=== PATIENT | male | born 1955 | race Caucasian/White ===

== ENCOUNTER 2020-08-22 12:37 | Inpatient (IN) | payer MEDICARE ==
[~2020-08-22] VITALS: Ht 185.4 cm; Wt 85.6 kg
[~2020-08-22 12:37] MED LIST: ALBU90OI6 INH; ATEN100 PO; CYAN1000 PO; EPIN.3I IM; FERR325 PO; FOLI1 PO; HYDACE10B PO; LISINOPRIL TAB 20M; OMEP10ER PO; Percocet 5-3251 EACH PO
[2020-08-22 13:02] LABS: PO2 Arterial 51.7 mmHg (80-100)
[2020-08-22 13:03] LABS: PCO2 Arterial > 105 mmHg (35-45); pH Blood Arterial 7.05 (7.35-7.45)
[2020-08-22 13:13] LABS: BASOPHILS ABSOLUTE AUTO 0.06 K/mm3 (0.00-0.23); BASOPHILS PERCENT AUTO 0 % (0-2); EOSINOPHILS ABSOLUTE AUTO 0.04 K/mm3 (0.00-0.68); EOSINOPHILS PERCENT AUTO 0 % (0-6); Hemoglobin 14.6 g/dL (13.5-17.5); IMMATURE GRAN ABSOLUTE AUTO 0.18 K/mm3 (0.00-0.10); IMMATURE GRAN PERCENT AUTO 1 % (0-1); LYMPHOCYTES ABSOLUTE AUTO 2.13 K/mm3 (0.84-5.20); LYMPHOCYTES PERCENT AUTO 14 % (21-46); MONOCYTES ABSOLUTE AUTO 0.82 K/mm3 (0.16-1.47); MONOCYTES PERCENT AUTO 5 % (4-13); Mean Corpuscular HGB 35.2 pg (26.0-34.0); Mean Corpuscular Volume 104 fL (80-100); Mean Platelet Volume 10.7 fL (9.1-12.4); NEUTROPHILS ABSOLUTE AUTO 11.94 K/mm3 (1.96-9.15); NEUTROPHILS PERCENT AUTO 79 % (41-73); NRBC ABSOLUTE 0.03 K/mm3 (0.00-0.02); NRBC Auto 0.2 /100 WBC (0.0-0.2); Platelet Count 275 K/mm3 (150-400); RDW Coefficient Variation 13.5 % (11.7-14.2); RDW Standard Deviation 52.6 fL (35.1-46.3); Red Blood Cell Count 4.15 M/mm3 (4.30-5.90); White Blood Cell Count 15.17 K/mm3 (4.00-11.30)
[2020-08-22 13:33] LABS: Troponin I 0.069 ng/mL (0.000-0.040)
[2020-08-22 13:39] LABS: Alanine Aminotransfer (ALT/SGP 37 U/L (12-78); Albumin, Blood 2.3 g/dL (3.4-5.0); Albumin/Globulin Ratio 0.5 (0.8-1.8); Alk Phos 192 U/L (50-136); Anion Gap 11 mmol/L (6-16); Aspartate Aminotrans (AST/SGOT 100 U/L (12-37); Bilirubin, Total 0.8 mg/dL (0.1-1.0); Blood Urea Nitrogen 8 mg/dL (8-24); Bun/Creatinine Ratio 6.5 (12.0-20.0); CO2, Blood 26 mmol/L (21-32); Calcium, Blood 8.4 mg/dL (8.5-10.1); Chloride, Blood 101 mmol/L (98-108); Creatinine, Blood 1.23 mg/dL (0.60-1.20); Globulin, Blood 5.1 g/dL (2.2-4.0); Glomerular Filtration Rate >60 (60-); Glucose, Blood 264 mg/dL (70-99); Potassium, Blood 1.7 mmol/L (3.5-5.5); Sodium, Blood 138 mmol/L (136-145); Total Protein, Blood 7.4 g/dL (6.4-8.2)
[2020-08-22] MEDS ORDERED: OMEP20ER PO (14:13)
[2020-08-22 15:21] LABS: Anion Gap 12 mmol/L (6-16); Blood Urea Nitrogen 7 mg/dL (8-24); Bun/Creatinine Ratio 5.6 (12.0-20.0); CO2, Blood 25 mmol/L (21-32); Calcium, Blood 7.7 mg/dL (8.5-10.1); Chloride, Blood 104 mmol/L (98-108); Creatinine, Blood 1.24 mg/dL (0.60-1.20); Glomerular Filtration Rate >60 (60-); Glucose, Blood 222 mg/dL (70-99); Potassium, Blood 1.3 mmol/L (3.5-5.5); Sodium, Blood 141 mmol/L (136-145)
[2020-08-22 17:17] LABS: Base Excess Venous 2.1 mmol/L; Bicarbonate Venous 25.4 mmol/L (24.0-30.0); PCO2 Venous 48.2 mmHg (38-42); PO2 Venous 55.9 mmHg (38-42); pH Blood Venous 7.36 (7.34-7.37)
[2020-08-22] MEDS ORDERED: Hair, Skin & N1 EACH PO (19:25)
[2020-08-22] MEDS ORDERED: LORA10ER PO (19:25)
--- NOTE | 2020-08-22 19:27 | NUR ---
ICU ADMISSION: REPORT RECEIVED FROM JOSE Van RN IN ED. PT ARRIVED TO ICU-15 AT APPROX 1655. TRANSFERRED FROM [facility] TO BED W/ SLIDER SHEET & 4 STAFF ASSIST. ON ARRIVAL, THE PT IS A&O, ANSWERING QUESTIONS APPROPRIATELY. LS ARE DIM IN BASES, PT ON BIPAP W/ SETTINGS: 21/11, B/U RATE 12, FIO2 85% (NOW 70%) W/ O2 SATS > 92%. MONITOR SHOWS SR-ST W/ HR 100s ON ARRIVAL, NOW 80-90s. BP HAS TRENDED DOWN SLIGHTLY W/ SBP 90s AT THIS TIME, PT ASYMPTOMATIC. HE HAS C/O "A TOUCH" OF DIARRHEA & INCONTINENCE OF BOWEL. HE HAS BEEN UNABLE TO URINATE SINCE ARRIVAL TO THE ED. BLADDER SCAN COMPLETED SHOWING MINIMAL URINE IN BLADDER. PT IS AWARE OF THE NEED FOR A SPECIMEN COLLECTIONS & WILL NOTIFY STAFF IF FEELING THE URGE TO VOID. SKIN CONDITION OVERALL FRAGILE, INTACT - SEE PHOTO DOCUMENTATION & ASSESSMENT. FOAM COCCYX DRESSING PLACED PROPHYLACTICALLY FOR SMALL AMNT OF REDNESS NOTED TO PRESSURE POINTS. REPORT GIVEN TO TIFFANIE Sauer RN TO ASSUME CARE.
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
--- NOTE | 2020-08-23 | NUR ---
PT TOLERATING BIPAP WELL, TOLERATES BREIF BREAKS FOR ORAL CARE. PT RESTING, REMAINS AROUSABLE TO VERBAL STIMULI, BP REMAINS SOFT BUT WITH MAPS> 65.
[2020-08-23 01:52] LABS: PCO2 Arterial 40.4 mmHg (35-45); PO2 Arterial 75.8 mmHg (80-100)
--- NOTE | 2020-08-23 02:00 | NUR ---
TO PTS ROOM R/T DECREASING O2 SATURATIONS. PT ALERT IN BED, APPEARS TO BE ATTEMPTING TO SPEAK BUT UNABLE TO TALK, SKIN IS DEAL AND DIAPHORETIC, TV ON BIPAP READING 200-300, LITTLE AIR MOVEMENT NOTED UPON AUSCULTAION. O2 SAUTRATIONS CONTINUED TO DECREASE TO 60'S, PT APPEARS ANXIOUS, BEGAN BAGGING PT AND RT TO ROOM. O2 SATURATIONS IMPROVED, SKIN COLOR IMPROVED, PT BEGAN SPEAKING, REMAINS ORIENTED, STS HE JUST COULD TAKE A BREATH IN. DR ROCK TO ROOM TO ASSESS PT, NEW ORDER FOR ABG. AFTER ABG DRAWN, PT HAD SECOND RESPIRATORY DISTRESS EPSISODE, DR ROCK STILL IN UNIT, TO ROOM AND AT BEDSIDE THROUGH DURATION OF EPISODE. RT ADJUSTING BIPAP SETTINGS AND PT REPORTS IMRPOVEMENT.
--- NOTE | 2020-08-23 03:00 | NUR ---
BRADYCARDIA/CODE BLUE AT PTS BEDSIDE AND PT HAD ANOTHER EPISODE OF RESPIRATORY DISTRESS WITH LOW TV'S AND O2 SATURATIONS DECREASING TO 70'S, RT TO ROOM AND PTS HEART RATE DECREASED TO 40, PT UNRESPONSIVE, CODE BLUE CALLED AND CRASH CART BROUGHT TO ROOM. HR IMPROVED W/O INTERVENTIONS, CHEST COMPRESSIONS NEVER INITIATED. PT INTUBATED WITH 8.0 ETT, 25 @ THE [facility], BY ED PROVIDER KELLIE ONOFRE.
[2020-08-23 03:04] LABS: Base Excess Venous -1.5 mmol/L; Bicarbonate Venous 22.3 mmol/L (24.0-30.0); PCO2 Venous 50.1 mmHg (38-42)
--- NOTE | 2020-08-23 03:07 | NUR ---
8.0 ETT, 25 CM AT TEETH
[2020-08-23 03:10] LABS: BASOPHILS ABSOLUTE AUTO 0.02 K/mm3 (0.00-0.23); BASOPHILS PERCENT AUTO 0 % (0-2); EOSINOPHILS PERCENT AUTO 0 % (0-6); Hematocrit 29.2 % (37.0-53.0); Hemoglobin 10.1 g/dL (13.5-17.5); IMMATURE GRAN ABSOLUTE AUTO 0.06 K/mm3 (0.00-0.10); IMMATURE GRAN PERCENT AUTO 1 % (0-1); LYMPHOCYTES ABSOLUTE AUTO 0.71 K/mm3 (0.84-5.20); LYMPHOCYTES PERCENT AUTO 6 % (21-46); MONOCYTES ABSOLUTE AUTO 0.19 K/mm3 (0.16-1.47); MONOCYTES PERCENT AUTO 2 % (4-13); Mean Corpuscular HGB 36.1 pg (26.0-34.0); Mean Corpuscular HGB Conc 34.6 g/dL (31.5-36.5); Mean Corpuscular Volume 104 fL (80-100); Mean Platelet Volume 10.7 fL (9.1-12.4); NEUTROPHILS ABSOLUTE AUTO 11.24 K/mm3 (1.96-9.15); NEUTROPHILS PERCENT AUTO 92 % (41-73); Platelet Count 181 K/mm3 (150-400); RDW Coefficient Variation 13.6 % (11.7-14.2); RDW Standard Deviation 52.1 fL (35.1-46.3); White Blood Cell Count 12.22 K/mm3 (4.00-11.30)
[2020-08-23 03:25] LABS: International Normalized Ratio 1.3; Prothrombin Time Results 13.8 Sec (9.7-11.5)
[2020-08-23 03:26] LABS: Magnesium, Blood 1.7 mg/dL (1.6-2.4)
[2020-08-23 03:30] LABS: Anion Gap 1 mmol/L (6-16); Blood Urea Nitrogen 7 mg/dL (8-24); Bun/Creatinine Ratio 6.7 (12.0-20.0); CO2, Blood 26 mmol/L (21-32); Chloride, Blood 117 mmol/L (98-108); Creatinine, Blood 1.05 mg/dL (0.60-1.20); Glomerular Filtration Rate >60 (60-); Glucose, Blood 168 mg/dL (70-99); Phosphorus, Blood 1.9 mg/dL (2.5-4.9); Sodium, Blood 144 mmol/L (136-145)
[2020-08-23 03:31] LABS: Calcium, Blood 5.7 mg/dL (8.5-10.1); Potassium, Blood 6.4 mmol/L (3.5-5.5)
[2020-08-23 04:36] LABS: Alanine Aminotransfer (ALT/SGP 33 U/L (12-78); Albumin, Blood 1.6 g/dL (3.4-5.0); Albumin/Globulin Ratio 0.4 (0.8-1.8); Alk Phos 123 U/L (50-136); Anion Gap 7 mmol/L (6-16); Aspartate Aminotrans (AST/SGOT 95 U/L (12-37); Bilirubin, Total 0.8 mg/dL (0.1-1.0); Blood Urea Nitrogen 8 mg/dL (8-24); Bun/Creatinine Ratio 7.1 (12.0-20.0); CO2, Blood 25 mmol/L (21-32); Calcium, Blood 6.5 mg/dL (8.5-10.1); Chloride, Blood 114 mmol/L (98-108); Creatinine, Blood 1.12 mg/dL (0.60-1.20); Globulin, Blood 3.8 g/dL (2.2-4.0); Glomerular Filtration Rate >60 (60-); Glucose, Blood 183 mg/dL (70-99); Phosphorus, Blood 1.7 mg/dL (2.5-4.9); Sodium, Blood 146 mmol/L (136-145)
[2020-08-23 04:38] LABS: Potassium, Blood 1.7 mmol/L (3.5-5.5); Total Protein, Blood 5.4 g/dL (6.4-8.2)
[2020-08-23 05:21] LABS: Source, Urine Catheter
[2020-08-23 05:32] LABS: Appearance, Urine Hazy (Clear); Bilirubin, Urine Neg (Neg); Blood, Urine 5+ (Neg); Color, Urine Yellow (P-Yellow); Glucose Qualitative, Urine 1+ (Neg); Ketones, Urine Neg (Neg); Leukocyte Esterase, Urine 1+ (Neg); Nitrite, Urine Neg (Neg); Protein, Urine 3+ (Neg); Urobilinogen, Urine NORM (Normal)
[2020-08-23 05:43] LABS: Bacteria Mod /hpf; Red Blood Cells, Urine 0-2 /hpf (0-2); Squamous Epithelial Cells Mod /hpf (Few)
[2020-08-23 06:42] LABS: U Amphetamine Screen Not Detected; U Barbituate Screen Not Detected; U Benzodiazapine Screen Not Detected; U Buprenorphine Screen Not Detected; U Cannabinoids Screen DETECTED; U Cocaine Screen Not Detected; U Methadone Screen Not Detected; U Methamphetamine Screen Not Detected; U Opiates Screen Not Detected; U Oxycodone Screen Not Detected; U Phencyclidine Screen Not Detected; U Propoxyphene Screen Not Detected
--- NOTE | 2020-08-23 07:31 | NUR ---
SHIFT SUMMARY PT INTUBATED AND SEDATED, VENT SET TO AC 14/550/5/35%, PROPOFOL INFUSING FOR SEDATION, PT AROUSES TO VERBAL STIMULI, FOLLOWS COMMANDS. 6.4 POTASSIUM LEVEL CALLED TO DR ROCK, ORDER TO REDRAW, FOLLOW POTASSIUM 1.7, CALLED TO DR ROCK, ORDER FOR NEPHROLOGY CONSULT, CONSULT CALLED TO DR OWENS, NEW ORDERS FOR 20meq KCL IV AND THEN DRAW RENAL AND MAG LABS. PT WITH DARK GREEN LIQUID STOOL AT END OF SHIFT, WHITE PLACED THIS SHIFT, VERY LITTLE URINE OUTPUT. REPORT GIVEN KEYLA DIALLO.
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
[2020-08-23 08:15] LABS: Albumin, Blood 1.6 g/dL (3.4-5.0); Anion Gap 8 mmol/L (6-16); Blood Urea Nitrogen 8 mg/dL (8-24); Bun/Creatinine Ratio 7.1 (12.0-20.0); CO2, Blood 26 mmol/L (21-32); Calcium, Blood 6.4 mg/dL (8.5-10.1); Chloride, Blood 114 mmol/L (98-108); Creatinine, Blood 1.13 mg/dL (0.60-1.20); Glomerular Filtration Rate >60 (60-); Glucose, Blood 140 mg/dL (70-99); Phosphorus, Blood 0.9 mg/dL (2.5-4.9); Potassium, Blood 1.6 mmol/L (3.5-5.5); Sodium, Blood 148 mmol/L (136-145)
--- NOTE | 2020-08-23 08:45 | NUR ---
DR. OWNES CALLED AND INFORMED OF LAB RESULTS. INFORMED OF POTASSIUM OF 1.6 AND PHOSPHORUS OF 0.9. INFORMED THAT OVER NIGHT PATIENT HAD 1 UNMEASURED VOID AND NOW ONLY HAS 30 MLS OF URINE IN WHITE CATHETER BAG. INFORMED THAT BPS SOFT WITH SBP IN THE 80S THIS AM. ORDERS RECEIVED FOR KCL AND KPHOS.
--- NOTE | 2020-08-23 09:00 | NUR ---
DR. PEREZ UPDATED ON PATIENT STATUS. INFORMED THAT PATIENT HAS HAD MINIMAL OUTPUT. INFORMED THAT BPS HAVE BEEN SOFT. INFORMED OF AM CALCIUM, BNP, PHOS, TROPONIN AND POTASSIUM LEVELS.
--- NOTE | 2020-08-23 10:22 | NUR ---
PATIENT'S GIRLFRIEND, SANDRINE, CALLED AND UPDATED ON PATIENT STATUS. INFORMED OF CRICITALLY LOW PHOSPHORUS AND POTASSIUM, INFORMED THAT PATIENT INTUBATED LAST NIGHT. CONSENT OBTAINED FOR PICC LINE PLACEMENT.
--- NOTE | 2020-08-23 11:09 | NUR ---
Per EMR pt's PCP is Artemio PRADO at [facility]. Spoke with Micheline at [facility]. Pt has not been see by Pasha Waldron in the past. Pt has an appointment to re-establish care with Roberto Celaya on 08/31/20. [facility] has no AD or POLST on file for Asad. Per [facility] records, pt has a history of an aneurysm, hypercholesterolimia, HTN, pancreatitis, sleep apnea, COPD and GERD.
--- NOTE | 2020-08-23 12:30 | NUR ---
PATIENT HAS TEMP OF 99.5 DEGREES FAHRENHEIT. HR IN THE 80S. SBP 60S TO 80S. LEVOPHED STARTED; INFUSING AT 4 MCG/ MINUTE. MINIMAL URINE OUTPUT NOTED. DR. PEREZ AWARE. NO OTHER ACUTE CHANGES TO NOTE ON AT THIS TIME. PATIENT CONTINUED TO RECEIVED POTASSIUM OF PHOS REPLACEMENTS. WILL CONTINUE TO MONITOR.
--- NOTE | 2020-08-23 16:43 | NUR ---
PATIENT AFEBRILE. NO SIGNS OF PAIN NOTED. PATIENT REMAINS ON SAME VENT SETTINGS. HR IN THE 80S. SBP LOW 100S TO 120S. LEVOPHED INFUSING AT 2 MCG/ MINUTE. STOOL SENT TO LAB. NO OTHER ACUTE CHANGES TO NOTE ON. WILL CONTINUE TO MONITOR.
--- NOTE | 2020-08-23 17:32 | NUR ---
PATIENT'S SIGNIFICANT OTHER HERE TO VISIT. S.O. UPDATED.
--- NOTE | 2020-08-23 19:06 | NUR ---
SHIFT SUMMARY PATIENT REMAINED INTUBATED AND ON SEDATION. PATIENT RESPONDED TO VERBAL AND PAINFUL STIMULI. PATIENT HAD NO SIGNS OF PAIN THIS SHIFT. PATIENT HAD TMAX OF 99.6 DEGREES FAHRENHEIT. PATIENT REMAINS ON AC 24, TV 550, PEEP 5, 35% FIO2. PATIENT HAD NEAR TO NO SPUTUM OUT THIS SHIFT. PATIENT REMAINED IN SR, HR 70S TO 90S. SBP 60S TO 120S. PATIENT ON 2 TO 8 MCG/ MINUTE OF LEVOPHED THIS SHIFT. PATIENT CURRENTLY AT 2 MCG/ MINUTE. PATIENT HAD 300 MLS OF DARK GREEN, LIQUID BM FROM RECTAL TUBE. STOOL SAMPLE SENT TO LAB. OG REMAINED CLAMPED EXCEPT FOR MEDICATION ADMINISTRATION. TEMP PROBE WHITE DRAINED 174 MLS OF ALONDRA COLORED URINE OUT THIS SHIFT. NO CHANGE IN SKIN. PATIENT REPOSITIONED THROUGHOUT SHIFT. NS REMAINS AT 75 MLS/ HOUR. PATIENT HAD 1 L NS BOLUS THIS SHIFT. PATIENT RECEIVED ROCEPHIN AND AZITHROMYCIN THIS SHIFT. PATIENT RECEIVED 80 MEQ OF KCL AND 30 MM OF KPHOS THIS SHIFT. REPEAT LABS RECENTLY SENT TO LAB. URINE POTASSIUM SENT THIS SHIFT. PATIENT RECEIVED 100 GM OF ALBUMIN THIS SHIFT. PATIENT RECEIVED ECHO. PATIENT APPEARS COMFORTABLE AT THIS TIME. BED LOW, CALL LIGHT IN REACH. REPORT HAS BEEN GIVEN TO ASSUMING KNOT TYING OPERATOR NURSE.
[2020-08-23 19:07] LABS: Magnesium, Blood 1.8 mg/dL (1.6-2.4)
[2020-08-23 19:10] LABS: Adenovirus F 40/41 Not Detected (NOT DETECT); Astrovirus Not Detected (NOT DETECT); Campylobacter Sp Not Detected (NOT DETECT); Cryptosporidium Not Detected (NOT DETECT); Cyclospora Cayetanensis Not Detected (NOT DETECT); E. Coli O157 Not Detected (NOT DETECT); Entamoeba Histolytica Not Detected (NOT DETECT); Enteroaggregative E. coli-EAEC Not Detected (NOT DETECT); Enteropathogenic E. coli-EPEC Not Detected (NOT DETECT); Enterotoxigenic E. coli-ETEC Not Detected (NOT DETECT); Giardia Lamblia Not Detected (NOT DETECT); Norovirus GI/GII Not Detected (NOT DETECT); Plesiomonas Shigelloides Not Detected (NOT DETECT); Rotavirus A Not Detected (NOT DETECT); Salmonella Sp Not Detected (NOT DETECT); Sapovirus Not Detected (NOT DETECT); Shiga Toxin-prod E. coli-STEC Not Detected (NOT DETECT); Shigella/Enteroin E. coli-EIEC Not Detected (NOT DETECT); Vibrio Cholerae Not Detected (NOT DETECT); Vibrio Sp Not Detected (NOT DETECT); Yersinia Enterocolitica Not Detected (NOT DETECT)
[2020-08-23 19:22] LABS: Phosphorus, Blood 2.9 mg/dL (2.5-4.9); Potassium, Blood 2.2 mmol/L (3.5-5.5)
--- NOTE | 2020-08-23 20:30 | NUR ---
ASSUMPTION OF CARE PT INTUBATED AND SEDATED WITH PROPOFOL, SEE FLOWSHEET FOR TITRATIONS. VENT SET TO AC 14/550 PEEP 5 FIO2 35%. PT GRIMACES WITH NURSING CARE, DOES NOT FOLLOW COMMANDS. MONITOR SHOWS SINUS RHYTHM WITH HR 60'S-90'S, LEVO INFUSING TO MAINTAIN MAPS> 65. WHITE IN PLACE WITH VERY LITTLE OUTPUT. RECTAL TUBE IN PLACE WITH LIQUID GREEN OUTPUT. NS INF @ 75ml/hr, POTASSIUM RESULTS CALLED TO DR OWENS, NEW ORDER FOR 80meq KCL WITH REPEAT LAB AFTER INFUSION IS COMPLETE.
[2020-08-24 05:08] LABS: BASOPHILS ABSOLUTE AUTO 0.01 K/mm3 (0.00-0.23); BASOPHILS PERCENT AUTO 0 % (0-2); EOSINOPHILS PERCENT AUTO 0 % (0-6); Hematocrit 28.4 % (37.0-53.0); Hemoglobin 9.6 g/dL (13.5-17.5); IMMATURE GRAN ABSOLUTE AUTO 0.08 K/mm3 (0.00-0.10); IMMATURE GRAN PERCENT AUTO 1 % (0-1); LYMPHOCYTES ABSOLUTE AUTO 1.57 K/mm3 (0.84-5.20); LYMPHOCYTES PERCENT AUTO 14 % (21-46); MONOCYTES ABSOLUTE AUTO 0.38 K/mm3 (0.16-1.47); MONOCYTES PERCENT AUTO 3 % (4-13); Mean Corpuscular HGB 36.1 pg (26.0-34.0); Mean Corpuscular HGB Conc 33.8 g/dL (31.5-36.5); Mean Corpuscular Volume 107 fL (80-100); Mean Platelet Volume 10.4 fL (9.1-12.4); NEUTROPHILS ABSOLUTE AUTO 9.15 K/mm3 (1.96-9.15); NEUTROPHILS PERCENT AUTO 82 % (41-73); Platelet Count 180 K/mm3 (150-400); RDW Coefficient Variation 14.1 % (11.7-14.2); Red Blood Cell Count 2.66 M/mm3 (4.30-5.90); White Blood Cell Count 11.19 K/mm3 (4.00-11.30)
[2020-08-24 05:38] LABS: Albumin, Blood 2.9 g/dL (3.4-5.0); Anion Gap 11 mmol/L (6-16); Blood Urea Nitrogen 10 mg/dL (8-24); Bun/Creatinine Ratio 9.3 (12.0-20.0); CO2, Blood 22 mmol/L (21-32); Calcium, Blood 6.4 mg/dL (8.5-10.1); Chloride, Blood 116 mmol/L (98-108); Creatinine, Blood 1.07 mg/dL (0.60-1.20); Glomerular Filtration Rate >60 (60-); Glucose, Blood 138 mg/dL (70-99); Phosphorus, Blood 3.1 mg/dL (2.5-4.9); Potassium, Blood 3.2 mmol/L (3.5-5.5); Sodium, Blood 149 mmol/L (136-145)
--- NOTE | 2020-08-24 06:14 | NUR ---
SHIFT SUMMARY PT REMAINS INTUBATED AND SEDATED, RESPONDS TO PAINFUL STIMULI, SEDATION VACATION THIS AM, PTS RESPIRATORY RATE INCREASED TO 30'S AND PT BECAME VERY TREMULOUS AND UNABLE TO FOLLOW COMMANDS, SBT NOT PERFORMED DUE TO CONCERN FOR POSSIBLE ETOH WITHDRAWAL AND RESTLESSNESS WITH DECREASED SEDATION. PT WITH INCREASED SECRETIONS, PINK/THICK PER ETT. VENT SET TO AC 14/550 PEEP 5 FIO2 35%. MONITOR SHOWS SINUS RHYTHM WITH HR 70'S-90'S, LEVO GTT PLACED ON SB FOR APPROX 2 HOURS THIS SHIFT AND THEN RESTARTED @ 2mcg/min TO MAINTAIN MAPS> 65. WHITE REMAINS IN PLACE WITH LITTLE OUTPUT. RECTAL TUBE IN PLACE, CONTINUES TO DRAIN LIQUID GREEN STOOL, APPROX 550ml THIS SHIFT. AM POTASSIUM, MAG AND PHOS LAB RESULTS CALLED TO DR OWENS, NEW ORDER FOR 20meq IV KCL.
--- NOTE | 2020-08-24 08:00 | NUR ---
DR. PEREZ UPDATED ON PATIENT STATUS. INFORMED THAT PATIENT HAD SEDATION VACATION THIS AM AND PATIENT BECAME VERY TREMULOUS, DIAPHORETIC AND HAD RR 40S TO 50S. INFORMED THAT PATIENT IS A DAILY DRINKER. INFORMED THAT NIGHT RN PALPATED MASS TO R SIDE OF NECK. THIS NURSE DID NOT PALPATE. DR. PEREZ CHECKED AND DID NOT PALPATE A MASS EITHER. INFORMED THAT PATIENT HAD 550 MLS OF STOOL FROM RECTAL TUBE OVERNIGHT AND 200 MLS OF URINE OUTPUT ON WARDSPERSON. INFORMED THAT SODIUM 149 AND POTASSIUM 3.2 [address] AM. INFORMED THAT DR. OWENS ORDERED FOR 20 MEQ KCL AND FOR D5W AT 75 MLS/ HOUR. INFORMED THAT CALCIUM 0.54. INFORMED THAT QT INTERVAL IS PROLONGED. NO ORDERS RECEIVED AT THIS TIME.
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
[2020-08-24 12:31] LABS: Potassium, Blood 2.7 mmol/L (3.5-5.5)
--- NOTE | 2020-08-24 12:34 | NUR ---
DR. OWENS CALLED AND INFORMED OF RECENT SODIUM AND POTASSIUM LABS. ORDER RECEIVED.
--- NOTE | 2020-08-24 13:00 | NUR ---
PATIENT AFEBRILE. HR IN THE 80S. SBP 90S TO LOW 100S. LEVOPHED ON SB. PATIENT REMAINS SATTING 90% AND GREATER ON SAME VENT SETTINGS. BLOOD SUGAR OF 126. VHP TF STARTED AT GOAL RATE OF 10 MLS/ HOUR WITH 30 ML WATER FLUSH Q4H INTO OG TUBE. NO OTHER ACUTE CHANGES TO NOTE ON AT THIS TIME. WILL CONTINUE TO MONITOR.
--- NOTE | 2020-08-24 16:35 | NUR ---
PATIENT AFEBRILE. PATIENT REMAINS SATTING 90% AND GREATER ON SAME VENT SETTINGS. HR IN THE 80S. SBP 80S TO LOW 100S. TF RESIDUAL OF ZERO. NO OTHER ACUTE CHANGES TO NOTE ON AT THIS TIME. WILL CONTINUE TO MONITOR.
--- NOTE | 2020-08-24 19:20 | NUR ---
SHIFT SUMMARY PATIENT REMAINED INTUBATED AND ON SEDATION. PATIENT STARTED ON SCHEDULED ATIVAN PT THIS SHIFT TO HELP WITH WHAT APPEAR TO BE ALCOHOL WITHDRAWAL SYMPTOMS. TREMORS HAVE NOT BEEN SEEN SINCE ATIVAN GIVEN. PATIENT HAD SEDATION VACATION AND SHORT WEAN LATER THIS AFTERNOON. PATIENT ABLE TO REMAIN CALM AND FOLLOW SOME SIMPLE COMMANDS. PATIENT PLACED BACK ON AC SETTINGS FOR INCREASED RR AND ANXIETY SHORT TIME LATER. DR. PEREZ STATED HE WOULD LIKE ANOTHER WEAN AND SEDATION VACATION AROUND 0700 IN THE MORNING. PATIENT ON AC 14, TV 550, PEEP 5 AND 45% FIO2 BY END OF SHIFT. PATIENT ON 35% FIO2 MOST OF THE DAY. PATIENT HAS SCANT AMOUNT OF THICK, WHITE/ PINK SPUTUM OUT THIS SHIFT. PATIENT REMAINED IN SR. LEVOPHED FROM SB TO 2 MCG/ MINUTE FOR HYPOTENSION. PATIENT HAD OUT 600 MLS OF DARK GREEN, LIQUID STOOL FROM RECTAL TUBE. TF STARTED AT GOAL RATE OF 10 MLS/ HOUR. PATIENT HAD MINIMAL URINE OUTPUT- DR. PEREZ AWARE. NO CHANGES TO SKIN. PATIENT REPOSITIONED THROUGHOUT SHIFT. EAR PROBE PLACED FOR LAST 4 HOURS AND SITE CHANGED Q2H. D5W INFUSING AT 50 MLS/ HOUR, PROPOFOL AT 20 MCG/ KG/ MINUTE. PATIENT RECEIVED 80 MEQ KCL THIS SHIFT. PATIENT APPEARS COMFORTABLE AT THIS TIME. NIGHT RN AT BEDSIDE. REPORT GIVEN.
--- NOTE | 2020-08-24 19:30 | NUR ---
ASSUMED CARE AT 1900 PT LAYING IN BED INTUBATED WITH VENT SETTINGS AC 14, TV 550, PEEP 5, FIO2 45%. PT DOES NOT TOLERATE REPOSITIONING ONTO RT SIDE. PT RESPONSIVE TO PAINFUL STIMULI, ORAL CARE, AND REPOSITIONING; GAG AND COUGH PRESENT; PROPOFOL INFUSING AT 25MCG/KG/MIN. AFEBRILE. HR 70-90'S, NSR. SBP 80-100, MAP >65; LEVOPHED INFUSING AT 3MCG/MIN. VHP INFUSING VIA OG AT 10ML/HR (GOAL) WITH 30ML WATER FLUSHES; MINIMAL RESIDUALS NOTED. RECTAL TUBE DRAINING TO GRAVITY GREEN LIQUID STOOL. WHITE IN PLACE AND DRAINING TO GRAVITY. SEE SHIFT ASSESSMENT FOR FULL ASSESSMENT.
--- NOTE | 2020-08-25 03:57 | NUR ---
NOTIFIED DR OWENS KCL STOPPED INFUSING AT 1924. POTASSIUM LAB DRAWN ONE HOUR AFTER LAST KCL INFUSION. DR OWENS CALLED WITH LAB RESULT AND NEW ORDERS PROVIDED FOR 10 KCL IV X1 AND TO CALL DR OWENS AFTER MORNING LAB RESULTS.
[2020-08-25 04:19] LABS: BASOPHILS ABSOLUTE AUTO 0.02 K/mm3 (0.00-0.23); BASOPHILS PERCENT AUTO 0 % (0-2); EOSINOPHILS ABSOLUTE AUTO 0.13 K/mm3 (0.00-0.68); EOSINOPHILS PERCENT AUTO 2 % (0-6); Hematocrit 29.1 % (37.0-53.0); Hemoglobin 9.8 g/dL (13.5-17.5); IMMATURE GRAN ABSOLUTE AUTO 0.04 K/mm3 (0.00-0.10); IMMATURE GRAN PERCENT AUTO 1 % (0-1); LYMPHOCYTES ABSOLUTE AUTO 2.29 K/mm3 (0.84-5.20); LYMPHOCYTES PERCENT AUTO 29 % (21-46); MONOCYTES ABSOLUTE AUTO 0.51 K/mm3 (0.16-1.47); MONOCYTES PERCENT AUTO 7 % (4-13); Mean Corpuscular HGB 36.7 pg (26.0-34.0); Mean Corpuscular HGB Conc 33.7 g/dL (31.5-36.5); Mean Corpuscular Volume 109 fL (80-100); Mean Platelet Volume 10.4 fL (9.1-12.4); NEUTROPHILS ABSOLUTE AUTO 4.87 K/mm3 (1.96-9.15); NEUTROPHILS PERCENT AUTO 62 % (41-73); Platelet Count 139 K/mm3 (150-400); RDW Coefficient Variation 14.3 % (11.7-14.2); RDW Standard Deviation 57.2 fL (35.1-46.3); Red Blood Cell Count 2.67 M/mm3 (4.30-5.90); White Blood Cell Count 7.86 K/mm3 (4.00-11.30)
[2020-08-25 04:33] LABS: Albumin, Blood 2.8 g/dL (3.4-5.0); Anion Gap 7 mmol/L (6-16); Blood Urea Nitrogen 8 mg/dL (8-24); Bun/Creatinine Ratio 8.8 (12.0-20.0); CO2, Blood 22 mmol/L (21-32); Calcium, Blood 6.4 mg/dL (8.5-10.1); Chloride, Blood 116 mmol/L (98-108); Creatinine, Blood 0.91 mg/dL (0.60-1.20); Glomerular Filtration Rate >60 (60-); Glucose, Blood 140 mg/dL (70-99); Phosphorus, Blood 1.8 mg/dL (2.5-4.9); Potassium, Blood 3.2 mmol/L (3.5-5.5); Sodium, Blood 145 mmol/L (136-145)
--- NOTE | 2020-08-25 05:12 | NUR ---
UPDATED DR GRACIELA OWENS CALLED ABOUT PT MORNING POTASSIUM AND PHOS LABS. NEW ORDERS FOR KPHOS 20MM IV X1 PROVIDED.
--- NOTE | 2020-08-25 06:33 | NUR ---
UPDATE DR OWENS CALLED AND PROVIDED MORE ORDERS INCLUDING KCL 20MEQ, 1200 LABS TO BE DRAWN FOR POTASSIUM, PHOS, AND MAGNISIUM. THOSE RESULTS ARE TO BE CALLED TO DR OWENS BY 1300.
--- NOTE | 2020-08-25 06:35 | NUR ---
END OF SHIFT SUMMARY PT CONT TO BE INTUATED WITH VENT SETTINGS AC 14, TV 550, PEEP 5, FIO2 45%. PT RESPONSIVE TO PAINFUL STIMULI, REPOSITIONING, AND ORAL CARE; PROPOFOL INFUSING AT 25MCG/KG/MIN. AFEBRILE. HR 70-80'S. SBP 80-105, MAP >65; LEVOPHED INFUSING AT 3MCG/MIN. VHP INFUSING VIA OG AT 10ML/HR (GOAL) WITH 30 ML WATER FLUSHES Q4HR; MINIMAL SECREATIONS NOTED. RECTAL TUBE AND WHITE IN PLACE AND DRAINING TO GRAVITY. D5W INFUSING AT 50ML/HR AND LEVOPHED THROUGH KELLY PICC. PROPOFOL INFUSING VIA PG TO JACKELYN. WILL REPORT TO AM RN WHEN AVAILABLE.
--- NOTE | 2020-08-25 07:15 | NUR ---
ASSUMED CARE OF PT AT THIS TIME. PT ON AC VENTILATOR /, SEDATED WITH PROPOFOL AT 25MCG/KG/MIN. RECEIVING LEVOPHED AT 3MCG/MIN. PICC IN LEFT UPPER ARM. PT WITHDRAWS FROM PAINFUL STIMULI, FAILS TO OPEN EYES OR FOLLOW COMMANDS AT THIS TIME. PTS LEGS SLIGHTLY TREMULOUS. WEAK RADIAL AND PEDAL PULSES BILATERALLY. WHITE INTACT AND DRAINING. RECTAL TUBE INTACT AND DRAINING. VHP AT GOAL RATE 10ML/HR W Q4 30ML FLUSHES, LOW RESIDUALS. D5 RUNNING AT 50MLS/HR. SEE FULL SHIFT ASSESSMENT.
--- NOTE | 2020-08-25 11:50 | NUR ---
11:15 PROPOFOL PLACED ON STANDBY TO ATTEMPT SBT. PT QUICKLY BECAME AGITATED, INCREASED RR, TACHYCARDIC, AND TACHYPNEIC. PT RESEDATED AND SBT DISCONTINUED PER DR PEREZ. LEVOPHED REMAINS ON STANDBY, MAP >65. PROPOFOL AT 25MCG/KG/MIN.
[2020-08-25 12:30] LABS: Magnesium, Blood 1.8 mg/dL (1.6-2.4); Phosphorus, Blood 2.2 mg/dL (2.5-4.9); Potassium, Blood 3.9 mmol/L (3.5-5.5)
--- NOTE | 2020-08-25 18:35 | NUR ---
SHIFT SUMMARY PT ON 25MCG/KG/MIN PROPOFOL FOR MOST OF DAY. BEGAN PRECEDEX AT 1630 DUE TO INCREASING AGITATION AND HYPOTENSION. PROPOFOL PLACED ON STANDBY AT 1700. RESTARTED LEVOPHED AT 1830. CURRENTLY INFUSING AT 4MCG/MIN TO MAINTAIN MAP >65. PRECEDEX INFUSING AT 0.2MCG/KG/HR. PT ADEQUATELY SEDATED. VENT SETTINGS REMAIN UNCHANGED AC 14/. MINIMAL SECRETIONS FROM ET TUBE. 450ML URINARY OUTPUT IN WHITE CATH. 500ML GREEN, LIQUID STOOL FROM RECTAL TUBE. TMAX 100.4. PT REMAINS TREMULOUS AND DIAPHORETIC. TUBE FEED GOAL INCREASED TO 20ML/HR AT 1620. DEXTROSE 5% CONTINUES TO INFUSE AT 50ML/HR. SEE PREVIOUS NOTES FROM THIS SHIFT. WILL REPORT TO ONCOMING RN.
--- NOTE | 2020-08-25 18:40 | NUR ---
THIS NURSE REVIEWED ALL FIRE HYDRANT MECHANIC DOCUMENTATION AND CHARTING AND AGREE WITH NURSING STUDENTS EVALUATIONS.
[2020-08-25 19:04] LABS: Anion Gap 6 mmol/L (6-16); Blood Urea Nitrogen 8 mg/dL (8-24); CO2, Blood 20 mmol/L (21-32); Calcium, Blood 6.5 mg/dL (8.5-10.1); Chloride, Blood 113 mmol/L (98-108); Creatinine, Blood 0.89 mg/dL (0.60-1.20); Glomerular Filtration Rate >60 (60-); Glucose, Blood 106 mg/dL (70-99); Potassium, Blood 3.7 mmol/L (3.5-5.5); Sodium, Blood 139 mmol/L (136-145)
--- NOTE | 2020-08-25 22:09 | NUR ---
ASSUMED CARE AT 1900 PT LAYING IN BED INTUBATED WITH VENT SETTINGS AC 14, TV 550, PEEP 5, FIO2 35%; SMALL AMOUNT OF SECREATION SUCTIONED VIA ETT. PT ABLE TO OPEN EYES WITH VERBAL STIMULI BUT DID NOT FOLLOW DIRECTIONS. PT REACTIVE TO ORAL CARE AND REPOSITIONING; GAG AND COUGH PRESENT. PROPOFOL ON SB, PRECEDEX INFUSING AT 0.2MCG/KG/HR. TEMP 99.6. HR 90'S. SBP 80-100, MAP >65; LEVOPHED INFUSING AT 4MCG/MIN. VHP INFUSING AT 20ML/HR (GOAL) WITH 30ML WATER FLUSHES Q4HR; MINIMAL RESIDUALS NOTED. RECTAL TUBE AND WHITE IN PLACE DRAINING TO GRAVITY. D5W INFUSING AT 50ML/HR. DR OWENS CALLED FOR UPDATE ON PT AT 1900, NO NEW ORDERS PROVIDED. SEE SHIFT ASSESSMENT FOR FULL ASSESSMENT.
[2020-08-26 04:20] LABS: BASOPHILS ABSOLUTE AUTO 0.02 K/mm3 (0.00-0.23); BASOPHILS PERCENT AUTO 0 % (0-2); EOSINOPHILS PERCENT AUTO 3 % (0-6); Hematocrit 30.5 % (37.0-53.0); Hemoglobin 9.9 g/dL (13.5-17.5); IMMATURE GRAN ABSOLUTE AUTO 0.05 K/mm3 (0.00-0.10); IMMATURE GRAN PERCENT AUTO 1 % (0-1); LYMPHOCYTES ABSOLUTE AUTO 1.79 K/mm3 (0.84-5.20); LYMPHOCYTES PERCENT AUTO 27 % (21-46); MONOCYTES ABSOLUTE AUTO 0.48 K/mm3 (0.16-1.47); MONOCYTES PERCENT AUTO 7 % (4-13); Mean Corpuscular HGB 35.7 pg (26.0-34.0); Mean Corpuscular HGB Conc 32.5 g/dL (31.5-36.5); Mean Corpuscular Volume 110 fL (80-100); Mean Platelet Volume 10.7 fL (9.1-12.4); NEUTROPHILS ABSOLUTE AUTO 4.18 K/mm3 (1.96-9.15); NEUTROPHILS PERCENT AUTO 62 % (41-73); Platelet Count 124 K/mm3 (150-400); RDW Coefficient Variation 13.8 % (11.7-14.2); Red Blood Cell Count 2.77 M/mm3 (4.30-5.90); White Blood Cell Count 6.72 K/mm3 (4.00-11.30)
[2020-08-26 04:32] LABS: Albumin, Blood 2.5 g/dL (3.4-5.0); Anion Gap 6 mmol/L (6-16); Blood Urea Nitrogen 8 mg/dL (8-24); Bun/Creatinine Ratio 9.2 (12.0-20.0); CO2, Blood 23 mmol/L (21-32); Calcium, Blood 6.1 mg/dL (8.5-10.1); Chloride, Blood 115 mmol/L (98-108); Creatinine, Blood 0.87 mg/dL (0.60-1.20); Glomerular Filtration Rate >60 (60-); Glucose, Blood 153 mg/dL (70-99); Phosphorus, Blood 2.4 mg/dL (2.5-4.9); Potassium, Blood 3.6 mmol/L (3.5-5.5); Sodium, Blood 144 mmol/L (136-145)
--- NOTE | 2020-08-26 06:20 | NUR ---
END OF SHIFT SUMMARY PT CONT TO BE INTUBATED WITH VENT SETTINGS AC 14, TV 550, PEEP 5, FIO2 35%; MINIMAL SECREATIONS NOTED. PT RESPONSIVE TO PAINFUL AND SOMETIMES VERBAL STIMULI, DURING 0400 ORAL CARE PT CLOSED MOUTH AROUND ETT AND NODDED NO TO ORAL CARE; NO OTHER DIRECTIONS FOLLOWED. PROPOFOL ON SB ALL SHIFT; PRECEDEX INFUSING AT 0.2MCG/KG/HR. AFEBRILE. HR 70-90. SBP 80-110, MAP >65, LEVOPHED TITRATED DOWN TO 1MCG/MIN. VHP INFUSING VIA OG AT 20ML/HR (GOAL) WITH 30ML WATER FLUSHES Q4HR. RECTAL TUBE AND WHITE PATENT AND DRAINING TO GRAVITY. PT HAD 1600ML OF URINE OUTPUT THIS SHIFT. D5W INFUSING AT 50ML/HR. FAMILY CALLED AND UPDATED ABOUT PT. WILL REPORT TO AM RN WHEN AVAILABLE.
--- NOTE | 2020-08-26 15:07 | NUR ---
PT PLACED ON SPONTANEOUS 11/12, 30%. TOLERATING WELL. PRECEDEX REMAINS AT 0.2MCG/KG/HR. LEVOPHED REMAINS ON STANDBY
--- NOTE | 2020-08-26 18:16 | NUR ---
SHIFT SUMMARY PT REMAINS INTUBATED. VENT SETTINGS CHANGED FROM AC TO SPONTANEOUS FOR APPROX 3HRS. PT TOLERATED WELL WITHOUT SIGNS OF DISTRESS. UPPER LOBES CLEAR, LOWER DIMINISHED. WILL DISCUSS WITH ONCOMING RT REGARDING SWITCHING BACK TO AC. LEVOPHED DISCONTINUED AT 1045. PRECEDEX REMAINS INFUSING AT 0.4MCG/KG/HR, D5 INFUSING AT 50ML/HR. THIS AFTERNOON PT APPEARED MORE ALERT, OPENED EYES TO VERBAL STIMULI, ABLE TO SQUEEZE HANDS. THIS EVENING HE WAKENS TO STERNAL RUB, UNABLE TO FOLLOW COMMANDS. SUSPECTED TO BE DUE TO ATIVAN. WHITE INTACT AND TRAINING. 1000ML CLEAR, YELLOW OUTPUT DURING SHIFT. RECTAL TUBE IN PLACE AND DRAINING. 100ML OF LIQUID, GREEN STOOL DURING SHIFT. TUBE FEEDING CHANGED TO PIVOT 1.5 AT 20MLS/HR WITH GOAL RATE OF 35ML/HR. PT APPEARS COMFORTABLE WITH VSS. DR PEREZ DISCUSSED POSSIBLE EXTUABTION TOMORROW. WILL REPORT TO ONCOMING RN.
--- NOTE | 2020-08-26 20:44 | NUR ---
ASSUMED CARE AT 1900 PT LAYING IN BED INTUBATED WITH VENT SETTINGS JUST NOW SWITCHED OVER TO AC 14, TV 550, PEEP 5, FIO2 30%; SCANT AMOUNT OF SECREATIONS. PT ATTEMPTS TO OPEN EYES AND MOVE EXTREMITIES WHEN ASKED, GAG AND COUGH PRESENT, PRECEDEX INFUSING AT 0.4MCG/KG/HR. AFEBRILE. HR 80'S. SBP 100'S, MAP >65; LEVOPHED OFF. PIVOT INFUSING VIA OG AT 20ML/HR WITH 30ML WATER FLUSHES Q4HR; PLAN TO INCREASE TF TO GOAL OF 35ML/HR AFTER 8HRS. RECTAL TUBE AND WHITE IN PLACE AND DRAINING TO GRAVITY. D5W INFUSING AT 50ML/HR VIA PICC TO KELLY. PT FAMILY CALLED AND UPDATE ABOUT PT, CALL WAS THAN TRANSFERED TO PT ROOM AND PHONE HELD UP TO PT EAR TO HEAR FAMILY MEMBER. SEE SHIFT ASSESSMENT FOR FULL ASSESSMENT.
--- NOTE | 2020-08-27 02:11 | NUR ---
TUBE FEEDS PIVOT INCREASED TO 35ML/HR (GOAL) FROM 20ML/HR.
--- NOTE | 2020-08-27 03:20 | NUR ---
UPDATE PT FAMILY MEMBER CALLED AND WAS UPDATED ABOUT PT CONDITION.
[2020-08-27 04:25] LABS: Hematocrit 29.4 % (37.0-53.0); Hemoglobin 9.5 g/dL (13.5-17.5)
[2020-08-27 04:38] LABS: Albumin, Blood 2.2 g/dL (3.4-5.0); Anion Gap 7 mmol/L (6-16); Blood Urea Nitrogen 9 mg/dL (8-24); Bun/Creatinine Ratio 11.2 (12.0-20.0); CO2, Blood 23 mmol/L (21-32); Calcium, Blood 6.4 mg/dL (8.5-10.1); Chloride, Blood 114 mmol/L (98-108); Glomerular Filtration Rate >60 (60-); Glucose, Blood 152 mg/dL (70-99); Magnesium, Blood 1.8 mg/dL (1.6-2.4); Potassium, Blood 3.6 mmol/L (3.5-5.5); Sodium, Blood 144 mmol/L (136-145)
--- NOTE | 2020-08-27 06:04 | NUR ---
END OF SHIFT SUMMARY PT CONT TO BE INTUABED WITH VENT SETTINGS AC 14, TV 550, PEEP 5, FIO2 25%. PT RESONSIVE TO VERBAL STIMULI, OPENES EYES WHEN ASKED, AND ATTEMPTS TO FOLLOW DIRECTIONS; PRECEDEX INFUSING AT 0.4MCG/KG/HR. AFEBRILE. HR 70-80'S. SBP 90-100; MAP >65; LEVOPHED OFF ALL SHIFT. PIVOT INFUSING VIA OG AT 35ML/HR (GOAL) WITH 30ML WATER FLUSHES Q4HR. MINIMAL OUTPUT FROM RECTAL TUBE NOTED. 1000ML OUT OF WHITE CATH. D5W INFUSING VIA PICC TO KELLY AT 50ML/HR. WILL REPORT TO AM RN WHEN AVAILABLE.
--- NOTE | 2020-08-27 09:15 | NUR ---
ASSUMED CARE / DR PEREZ: REPORT RECEIVED FROM TYRONE Collins RN. ASSUMED CARE OF THIS PT AT APPROX 0700. ON ASSESSMENT, THE PT IS LIGHT SEDATED W/ PRECEDEX & RESTING QUIETLY. HE AWAKENS TO VERBAL STIMULUS & IS CALM/ COOPERATIVE AT THAT TIME, FOLLOWING MINIMAL DIRECTIONS BUT OVERALL VERY WEAK. VENT SETTINGS: AC 14/550/5/25% W/ O2 SATS > 92%, LS CLEAR T/O. MONITOR SHOWS SR W/ HR 80s, SBP 90s, MAP MAINTAINING > 65. OGT IN PLACE W/ TUBE FEED OF PIVOT INFUSING AT GOAL RATE OF 35 ML/HR. RECTAL TUBE PATENT/ DRAINING LIQUID BROWN STLS. TEMP WHITE PATENT/ DRAINING CLEAR YELLOW URINE. SKIN CONDITION OVERALL CDI. Q2 REPOSITIONING TO MAINTAIN SKIN INTEGRITY. PROVIDER AT BEDSIDE TO EVAL PT THIS AM. HE WOULD LIKE THE PT TO BE EXTUBATED LATER THIS AM IF HE TOLERATES SBT WELL. VENT SETTINGS CHANGED TO PS 7, PEEP 5 & 25% FIO2 AT APPROX 0913 BY RT KOLE, PER PROVIDER REQUEST. HE WOULD LIKE THE PT TO SPEND AT LEAST 1HR ON SBT PRIOR TO EXTUBATION. PRECEDEX TITRATED DOWN TO 0.3 MCG/KG/HR W/ THE PT WAKING MORE & TOLERATING SBT WELL. WILL CONTINUE TO MONITOR & UPDATE NEEDED.
--- NOTE | 2020-08-27 11:51 | NUR ---
SPONTANEOUS BREATHING TRIAL: PT ON SPONTANEOUS SINCE APPROX 0915 THIS AM. THIS RN HAS GRADUALLY TITRATED PRECEDEX DRIP DOWN FOR ANTICIPATED EXTUBATION IN ATTEMPT TO FULLY AWAKEN PT - SEE FLOWSHEET. THE PT HAS TOLERATED THIS WELL FOR A NUMBER OF HOURS BUT ON MENTION OF PLANNED EXTUBATION, THE PT IS SHAKING HIS HEAD "NO" R/T REMOVAL OF ETT/ VENTILATOR. HE HAS BECOME INCREASINGLY ANXIOUS SINCE THAT TIME W/ RR CLIMBING FROM HIGH 20s TO 40s. THIS RN HAS GIVEN SCHEDULED ATIVAN & INCREASED PRECEDEX TO PRIOR INFUSION RATE OF 0.4 MCG/KG/HR W/ NO EFFECT. DR PEREZ IS AWARE OF PT's CONDITION & STS TO CONTINUE SBT FOR APPROX 2 HRS MORE BEFORE POSSIBLE EXTUBATION. DESPITE MEDICATIONS, THE PT's RR CONTINUES TO INCREASE TO LOW 50s. HE IS NO LONGER REDIRECTABLE, IS NOT FOLLOWING COMMANDS OR ANSWERING YES/ NO QUESTIONS BY NODDING HEAD. DR PEREZ NOTIFIED OF THIS & STS TO RESUME AC MODE ON THE VENT, HE WILL NOT BE EXTUBATED TODAY. DR PEREZ PLANS TO ORDER DIFFERENT MEDS IN ATTEMPT TO BETTER MANAGE ANXIETY FOR SBT TOMORROW. AC MODE W/ SETTINGS: AC 14/550/5/25% RESUMED AT 1150 BY LETICIA Lin RT. THE PT HAS NOW CALMED SLIGHTLY & IS TOLERATING THIS SETTING CHANGE WELL W/ DECREASED RR 30-40s.
--- NOTE | 2020-08-27 18:01 | NUR ---
SHIFT SUMMARY: NO ACUTE CHANGES SINCE PRIOR UPDATES. PT REMAINS INTUBATED & SEDATED W/ PRECEDEX. HE CONTINUES TO OPEN EYES TO VERBAL STIMULUS BUT SHAKES HEAD "NO" WHEN ASKED TO FOLLOW ANY COMMANDS. VENT SETTINGS: AC 14/550/5/25% W/ O2 SATS > 92%. MONITOR SHOWS SR W/ HR 80s, SBP 80-90s AT TIMES W/ MAP MAINTAINING > 65. TUBE FEED OF PIVOT 1.5 CONTINUES AT GOAL RATE OF 35 ML/HR W/ 3O ML H2O FLUSH Q4H. RECTAL TUBE PATENT/ DRAINING BROWN-GREEN LIQUID STLS. TEMP WHITE PATENT/ DRAINING CLEAR YELLOW URINE. SKIN CONDITION OVERALL CDI, Q2H REPOSITIONING TO MAINTAIN SKIN INTEGRITY. WILL CONTINUE TO MONITOR & REPORT OFF TO ONCOMING RN.
--- NOTE | 2020-08-27 20:05 | NUR ---
ASSUMED CARE - BEDSIDE REPORT RECIEVED. PT ON VENTILATOR, A/C, 14 BPM, 550 TIDAL VOLUME, 5.0 PEEP, 25% FI02. PRECEDEX RUNNING AT 0.5 MCG/KG/HR. RECTAL TUBE AND WHITE CATHETER IN PLACE. PT RESTING QUIETLY IN BED, NO ACUTE NEEDS OR DISTRESS NOTED AT THIS TIME.
[2020-08-28 04:34] LABS: BASOPHILS ABSOLUTE AUTO 0.05 K/mm3 (0.00-0.23); BASOPHILS PERCENT AUTO 1 % (0-2); EOSINOPHILS PERCENT AUTO 2 % (0-6); Hematocrit 29.1 % (37.0-53.0); Hemoglobin 9.6 g/dL (13.5-17.5); IMMATURE GRAN PERCENT AUTO 1 % (0-1); LYMPHOCYTES ABSOLUTE AUTO 1.25 K/mm3 (0.84-5.20); LYMPHOCYTES PERCENT AUTO 15 % (21-46); MONOCYTES ABSOLUTE AUTO 0.71 K/mm3 (0.16-1.47); MONOCYTES PERCENT AUTO 8 % (4-13); Mean Corpuscular HGB 36.2 pg (26.0-34.0); Mean Corpuscular Volume 110 fL (80-100); Mean Platelet Volume 10.7 fL (9.1-12.4); NEUTROPHILS ABSOLUTE AUTO 6.29 K/mm3 (1.96-9.15); NEUTROPHILS PERCENT AUTO 73 % (41-73); Platelet Count 158 K/mm3 (150-400); RDW Coefficient Variation 13.6 % (11.7-14.2); RDW Standard Deviation 54.8 fL (35.1-46.3); Red Blood Cell Count 2.65 M/mm3 (4.30-5.90)
[2020-08-28 04:58] LABS: Albumin, Blood 1.9 g/dL (3.4-5.0); Anion Gap 7 mmol/L (6-16); Blood Urea Nitrogen 12 mg/dL (8-24); CO2, Blood 23 mmol/L (21-32); Calcium, Blood 6.8 mg/dL (8.5-10.1); Chloride, Blood 112 mmol/L (98-108); Creatinine, Blood 0.75 mg/dL (0.60-1.20); Glomerular Filtration Rate >60 (60-); Glucose, Blood 168 mg/dL (70-99); Magnesium, Blood 1.8 mg/dL (1.6-2.4); Phosphorus, Blood 2.1 mg/dL (2.5-4.9); Potassium, Blood 3.5 mmol/L (3.5-5.5); Sodium, Blood 142 mmol/L (136-145)
--- NOTE | 2020-08-28 06:37 | NUR ---
SHIFT SUMMARY - PT INTUBATED AND RESTING QUIETLY AT THIS TIME. PRECEDEX RUNNING AT 0.6 MCG/KG/HR. VENT CHANGED TO SPONTANEOUS AT 0450, SEE RT NOTES FOR SETTINGS, PT TOLERATING VENT WELL, MAINTAING BP 90s-110 SYSTOLIC, MAP >65, HR 80s-90s, RR HIGH 20S-LOW 30s WITH TIDAL VOLUMES 300-400s. INITIAL RESIDUAL FROM OG 180, RESIDUAL DROPPED TO <20ML DURING SHIFT. RECTAL TUBE STILL IN PLACE, MINIMAL OUTPUT. WHITE CATHETER STILL IN PLACE, OUTPUT IMPROVED DURING SHIFT, DRAINED 1200 ML CLEAR/YELLOW URINE THIS SHIFT. PT DEVELOPING SLIGHT RASH IN GROIN, BATHED AND POWDER APPLIED. PT SLOW TO RESPOND TO COMMANDS BUT DOES MOVE EXTREMITIES WHEN ASKED.
--- NOTE | 2020-08-28 07:15 | NUR ---
ASSUMED CARE OF PATIENT AT 0700 AFTER RECEIVING REPORT FROM SN CHERELLE AND ANJALI Storm RN ALONGSIDE RACHEL Chun RN. PT OPENS EYES SLIGHTLY TO LOUD SOUND AND CLAMPS JAW DURING ORAL CARE, BUT OTHERWISE DOES NOT MOVE OR FOLLOW COMMANDS. ETT TUBE IS IN PLACE WITH SPONTANEOUS VENTILATOR SETTINGS, PS 7, PEEP 5, FIO2 25% AND O2 SATS >92. LUNG SOUNDS ARE COURSE IN UPPER LOBES WITH SLIGHT WHEEZE AT END OF EXPIRATION. B/P IS STABLE AROUND 110/70 WITH SINUS RHYTHM PER MONITOR. PT HAS DEPENDENT, NONPITTING SWELLING IN ARMS, GROIN, AND FEET. RECTAL TUBE DRAINING SLIGHT GREEN AND BROWN LIQUID TO GRAVITY AND TEMP WHITE DRAINING CLEAR YELLOW URINE TO GRAVITY. POWERGLIDE AND PICC DRESSINGS C/D/I. PATIENT IS CALM AND RESTING AT THIS TIME. WILL CONTINUE TO MONITOR.
--- NOTE | 2020-08-28 09:00 | NUR ---
ASSUMED CARE: REPORT RECEIVED FROM MATHEW Lin, STUDENT NURSE, & ANJALI Storm RN. ASSUMED CARE OF THIS PT AT APPROX 0700 ALONGSIDE MADISON Pop, MACHINE OR MACHINERY MECHANIC, WHO WILL COMPLETE PRIMARY DOCUMENTATION FOR THIS PT. THIS RN WILL REVIEW ALL STUDENT DOCUMENTATION & MAKE CHANGES PRN FOR ACCURACY.
--- NOTE | 2020-08-28 10:00 | NUR ---
DR MARK: PROVIDER AT BEDSIDE TO EVAL PT THIS AM. SHE STS PT IS OKAY TO CONTINUE ON SBT LONG TOLERATED, BUT THAT THERE ARE NO PLANS TO EXTUBATE TODAY. SHE IS CONCERNED THAT PT's TACHYPNEA MAY BE R/T ETIOLOGY OTHER THAN ANXIETY & HAS ORDERED A CXR, REPEAT POTASSIUM DRAW & AM LABS. PT's GIRLFRIEND, SANDRINE, HAS CALLED SINCE THAT TIME & HAS BEEN UPDATED ON THIS POC.
--- NOTE | 2020-08-28 12:51 | NUR ---
TUBE FEED RATE WAS INCREASED FROM 35 ML/HR TO THE GOAL RATE OF 55 ML/HR PER CARPET REPAIRER ORDERS.
--- NOTE | 2020-08-28 17:40 | NUR ---
END OF SHIFT SUMMARY PATIENT INTUBATED AND RESTING QUIETLY AT THIS TIME. PRECEDEX RUNNING AT 0.6 MCG/KG/HR. SBP HAS BEEN STABLE IN THE 94-115 RANGE WITH DROP TO 87 AT 0730 AND JUMP TO 140-150 LATER WHEN AGITATED. MAP HAS MAINTAINED >65, HR 80-90S, NORMAL SINUS RHYTHM PER MONITOR. PT BECAME TACHYPNEIC AND WAS NOT TOLERATING SPONTANEOUS VENT SETTINGS WELL, SWITCHED TO AC 14/550/5/25% BY RT BUNNY, AT 1340. PT TOLERATING WELL WITH RESPIRATIONS 15-30. RESIDUALS HAVE BEEN 50-90 THROUGHOUT DAY. TUBE FEED RATE INCREASED TO GOAL RATE OF 55 ML/HR, PT TOLERATING WELL. POWDER AND PILLOWCASE APPLIED TO SCROTUM FOR EDEMA AND SLIGHT REDNESS. TEMP WHITE AND RECTAL TUBE DRAINING TO GRAVITY. POWERGLIDE AND PICC DRESSINGS C/D/I. GIRLFRIEND IN ROOM FOR ABOUT AN HOUR TODAY, PT OPENED EYES AND ATTEMPTED TO COMMUNICATE BY NODDING HEAD YES WHEN TOLD SHE WAS AT BEDSIDE.
--- NOTE | 2020-08-28 18:39 | NUR ---
SHIFT SUMMARY: NO ACUTE CHANGES SINCE PRIOR UPDATES. MADISON Pop, STUDENT NURSE, HAS COMPLETED THOROUGH SHIFT SUMMARY, REVIEWED & NOTED TO BE AN ACCURATE REFLECTION OF THE SHIFT BY THIS RN. WILL CONTINUE TO MONITOR & REPORT OFF TO ONCOMING RN.
--- NOTE | 2020-08-28 19:52 | NUR ---
ASSUMED CARE - BEDSIDE REPORT RECIEVED. PT RESTING QUIETLY, ABLE TO WIGGLE FINGERS AND TOES WHEN ASKED, DOES NOT OPEN EYES WHEN ASKED. VENTILATOR A/C 14/550/5.0/25%. PRECEDEX RUNNING AT 0.6 MCG/KG/HR, TUBE FEED RUNNING AT 55 ML/HR GOAL RATE. RECTAL TUBE IN PLACE, DRAINING LIQUID BROWN/GREEN STOOL. TEMP WHITE IN PLACE DRAINING CLEAR/YELLOW FLUID.
--- NOTE | 2020-08-29 00:58 | NUR ---
PT OG TUBE ON XRAY 5CM ABOVE OPTIMAL PLACEMENT. ADVANCED TUBE 5CM PER RADIOLOGY REPORT RECOMMENDATION 08/28/20 1054.
[2020-08-29 04:30] LABS: BASOPHILS ABSOLUTE AUTO 0.05 K/mm3 (0.00-0.23); BASOPHILS PERCENT AUTO 1 % (0-2); EOSINOPHILS ABSOLUTE AUTO 0.23 K/mm3 (0.00-0.68); EOSINOPHILS PERCENT AUTO 3 % (0-6); Hematocrit 29.3 % (37.0-53.0); Hemoglobin 9.5 g/dL (13.5-17.5); IMMATURE GRAN ABSOLUTE AUTO 0.08 K/mm3 (0.00-0.10); IMMATURE GRAN PERCENT AUTO 1 % (0-1); LYMPHOCYTES ABSOLUTE AUTO 1.15 K/mm3 (0.84-5.20); LYMPHOCYTES PERCENT AUTO 14 % (21-46); MONOCYTES PERCENT AUTO 9 % (4-13); Mean Corpuscular HGB 35.3 pg (26.0-34.0); Mean Corpuscular HGB Conc 32.4 g/dL (31.5-36.5); Mean Corpuscular Volume 109 fL (80-100); Mean Platelet Volume 10.4 fL (9.1-12.4); NEUTROPHILS ABSOLUTE AUTO 5.82 K/mm3 (1.96-9.15); NEUTROPHILS PERCENT AUTO 73 % (41-73); Platelet Count 180 K/mm3 (150-400); RDW Coefficient Variation 13.5 % (11.7-14.2); RDW Standard Deviation 53.5 fL (35.1-46.3); Red Blood Cell Count 2.69 M/mm3 (4.30-5.90); White Blood Cell Count 8.03 K/mm3 (4.00-11.30)
[2020-08-29 04:44] LABS: Albumin, Blood 1.8 g/dL (3.4-5.0); Anion Gap 6 mmol/L (6-16); Blood Urea Nitrogen 14 mg/dL (8-24); Bun/Creatinine Ratio 19.5 (12.0-20.0); CO2, Blood 25 mmol/L (21-32); Calcium, Blood 7.2 mg/dL (8.5-10.1); Chloride, Blood 113 mmol/L (98-108); Creatinine, Blood 0.72 mg/dL (0.60-1.20); Glomerular Filtration Rate >60 (60-); Glucose, Blood 178 mg/dL (70-99); Magnesium, Blood 1.7 mg/dL (1.6-2.4); Phosphorus, Blood 2.6 mg/dL (2.5-4.9); Potassium, Blood 3.5 mmol/L (3.5-5.5); Sodium, Blood 144 mmol/L (136-145)
[2020-08-29 05:41] LABS: pH Blood Arterial 7.48 (7.35-7.45)
--- NOTE | 2020-08-29 06:47 | NUR ---
SHIFT SUMMARY. PT CONTINUES ON VENTILATOR, CURRENT SETTINGS SPONTANEOUS CONTROL, PEEP 5.0, FI02 35%. PT SEDATED ON PRECEDEX AT 0.6 MCG/KG/MIN. PT RESPONDS TO COMMANDS SLOWLY, OPENS HIS EYES AND WIGGLES HIS TOES WHEN ASKED. DURING THE NIGHT PT HAD PERIODS OF DECREASED BP, MAP NEVER WENT BELOW 60. CURRENTLY MAINTANING MAP >65, HR 80s-90s, SP02 LOW 90s, RR 30S. SCHEDULED ATIVAN SWITCHED TO PRN FOR ANXIETY. DURING SHIFT PT TEMP CONTINUED TO RISE, DR MARK ORDERED SPUTUM CULTURES THIS AM. RECTAL TUBE IN PLACE, DRAINING LIQUID BROWN/GREEN STOOL. WHITE IN PLACE DRAINING CLEAR/YELLOW URINE. RT IN ROOM AT THIS TIME SWITCHING PT BACK TO AC. WILL FIND TONE RN FOR REPORT.
--- NOTE | 2020-08-29 07:15 | NUR ---
ASSUMPTION OF CARE ASSUMED CARE OF PT AT THIS TIME. PT REMAINS INTUBATED AT THIS TIME, VENT SETTINGS AC /. SPUTUM CULTURE SENT TO LAB. CURRENTLY RECEIVING PRECEDEX AT 0.6MCG/KG/HR. TUBE FEEDING PIVOT 1.5 INFUSING AT GOAL RATE OF 55 WITH 30ML FLUSH Q4HRS. DISCONTINUED POWERGLIDE IN [place] DUE TO REDNESS AROUND INSERTION SITE AND LARGE REDDENED AREA NEAR RIGHT ELBOW AND FOREARM. WHITE CATH REMAINS IN PLACE DRAINING CLEAR, YELLOW URINE. RECTAL TUBE IN PLACE DRAINING GREEN/YELLOW LIQUID STOOL. OPENS EYES TO VERBAL STIMULI. PT IS ABLE TO SQUEEZE BOTH HANDS WHEN ASKED, ALTHOUGH SLOW TO RESPOND. APPEARS TO BE RESTING COMFORTABLY.
--- NOTE | 2020-08-29 07:17 | NUR ---
REVIEWED AND AGREE WITH STUDENT NURSE DOCUMENTATION. BLOOD PRESSURE WAS DISCUSSED WITH DR MARK NEAR 0430 THIS AM WELL HELD DOSE OF MIDNOC ATIVAN AND PT RESPONSE, ORDERS WERE OBTAINED.
--- NOTE | 2020-08-29 17:29 | NUR ---
SHIFT SUMMARY PT REMAINS INTUBATED AT THIS TIME, VENT SETTINGS 14/550/5/30%. CHANGED FROM 35 TO 30% AROUND 13:00. ATTEMPTED SPONTANEOUS BREATHING TRIAL WHICH LASTED APPROX 40MIN. IT ENDED DUE TO INCREASED RR. THROUGHOUT THE SHIFT PT HAS BEEN ABLE TO OPEN EYES TO VERBAL STIMULI, SQUEEZE HANDS, AND NOD/SHAKE HIS HEAD TO QUESTIONS. CURRENTLY INFUSING PRECEDEX AT 0.7MCG/KG/HR. RECEIVING PIVOT 1.5 TUBE FEEDINGS AT GOAL RATE OF 55 WITH 30ML FLUSH Q4HRS. RESIDUAL VOLUME OF 90ML THIS MORNING. WHITE CATH REMAINS IN PLACE DRAINING CLEAR, YELLOW URINE WITH AN OUTPUT OF 800ML. RECTAL TUBE IN PLACE DRAINING YELLOW/GREEN STOOL. PT APPEARS TO BE RESTING COMFORTABLY AT THIS TIME WITH GIRLFRIEND AT BEDSIDE.
--- NOTE | 2020-08-29 20:17 | NUR ---
ASSUMPTION OF CARE PT INTUBATED AND SEDATED, DOES AROUSE TO VOICE; OPENS EYES AND SQUEEZES BOTH HANDS. WHITE PATENT AND DRAINING TO GRAVITY. RECTAL TUBE DRAINING TO GRAVITY. TUBE FEED RUNNING AT GOAL RATE OF 55 ML/HR WITH 30 Q4H WATER FLUSHES. PRECEDEX INFUSING AT 0.7 MCG/KG/HR AND NS AT TKO RATE OF 10 ML/HR.
[2020-08-30 04:56] LABS: BASOPHILS ABSOLUTE AUTO 0.04 K/mm3 (0.00-0.23); BASOPHILS PERCENT AUTO 1 % (0-2); EOSINOPHILS PERCENT AUTO 3 % (0-6); Hematocrit 27.7 % (37.0-53.0); Hemoglobin 9.2 g/dL (13.5-17.5); Mean Corpuscular HGB 36.1 pg (26.0-34.0); Mean Corpuscular HGB Conc 33.2 g/dL (31.5-36.5); Mean Corpuscular Volume 109 fL (80-100); Mean Platelet Volume 10.2 fL (9.1-12.4); Platelet Count 209 K/mm3 (150-400); RDW Coefficient Variation 13.3 % (11.7-14.2); RDW Standard Deviation 53.5 fL (35.1-46.3); Red Blood Cell Count 2.55 M/mm3 (4.30-5.90); White Blood Cell Count 7.81 K/mm3 (4.00-11.30)
[2020-08-30 04:57] LABS: IMMATURE GRAN ABSOLUTE AUTO 0.06 K/mm3 (0.00-0.10); IMMATURE GRAN PERCENT AUTO 1 % (0-1); LYMPHOCYTES ABSOLUTE AUTO 1.34 K/mm3 (0.84-5.20); LYMPHOCYTES PERCENT AUTO 17 % (21-46); MONOCYTES ABSOLUTE AUTO 0.76 K/mm3 (0.16-1.47); MONOCYTES PERCENT AUTO 10 % (4-13); NEUTROPHILS ABSOLUTE AUTO 5.41 K/mm3 (1.96-9.15); NEUTROPHILS PERCENT AUTO 69 % (41-73)
[2020-08-30 05:11] LABS: Albumin, Blood 1.7 g/dL (3.4-5.0); Anion Gap 5 mmol/L (6-16); Blood Urea Nitrogen 16 mg/dL (8-24); Bun/Creatinine Ratio 23.1 (12.0-20.0); CO2, Blood 26 mmol/L (21-32); Calcium, Blood 7.4 mg/dL (8.5-10.1); Chloride, Blood 113 mmol/L (98-108); Creatinine, Blood 0.69 mg/dL (0.60-1.20); Glomerular Filtration Rate >60 (60-); Glucose, Blood 171 mg/dL (70-99); Magnesium, Blood 1.7 mg/dL (1.6-2.4); Phosphorus, Blood 2.5 mg/dL (2.5-4.9); Potassium, Blood 3.4 mmol/L (3.5-5.5); Sodium, Blood 144 mmol/L (136-145)
--- NOTE | 2020-08-30 06:53 | NUR ---
SHIFT SUMMARY PT REMAINS INTUBATED AND SEDATED. VENT SETTINGS 14/550/30. WHITE PATENT AND DRAINING TO GRAVITY. RECTAL TUBE IN PLACE DRAINING GREEN LIQUID STOOL TO GRAVITY. PRECEDEX INFUSING AT 0.7 MCG/KG/HR AND NS TKO. PT WAKING TO VOICE COMMAND, FOLLOWING SIMPLE COMMANDS. VSS, HR 90'S, BP 130-140S, SPO2 >95%.
--- NOTE | 2020-08-30 12:25 | NUR ---
REASSESSMENT PT REMAINED VENTED THROUGHOUT THE MORNING. HE IS ON PRECEDEX FOR SEDATION. HE WAKES TO VOICE AND FOLLOWS SIMPLE COMMANDS. RT SWITCHED PT TO SPONTANEOUS MID MORNING AFTER TALKING WITH DR. PEREZ AND HE HAS BEEN DOING WELL. HE HAS HAD A MODERATE AMT OF SECRETIONS. LUNGS ARE SLIGHTLY COARSE. PLAN FOR POSSIBLE EXTUBATION THIS AFTERNOON IF PT CONTINUES TO DO WELL. HE IS SR, BP STABLE. WHITE WITH CL YELLOW URINE. RECTAL TUBE WITH SOFT BROWN STOOL. CONTINUING TO MONITOR.
[2020-08-30 16:41] LABS: Automated BF WBC Count 0.093 K/mm3 (0-999); Body Fluid WBC Count 93 /mm3 (0-999)
--- NOTE | 2020-08-30 16:56 | NUR ---
SHIFT SUMMARY PT TOLERATED SPONTANEOUS MODE WITH PS 7 PEEP 5 FOR ABOUT 3 HOURS BEFORE HIS RR WENT UP TO THE 40S AND HIS BREATHING STARTED TO LOOK LABORED. DR. PEREZ NOTIFIED AND PT SWITCHED BACK TO AC. DR. PEREZ PERFORMED THORACENTESIS AT THE BEDSIDE AND SENT FLUID FOR ANALYSIS. AFTER ALL THE MOVING FOR THE ULTRASOUND AND THORACENTESIS ETT NOTED TO BE AT 26 AT THE TEETH. HITESH RT NOTIFIED AND CAME TO BEDSIDE TO MOVE TUBE BACK TO 28CM AND RETAPE IT. CXR OBTAINED AFTER TUBE RETAPED. PT HYPERTENSIVE AFTER THORACENTESIS. PAIN MEDICATION GIVEN. LUGNS REMAIN COARSE. SR. CL YELLOW URINE FROM WHITE. LIQUID STOOL FROM RECTAL TUBE NOW. DR. PEREZ SPOKE WITH PT'S SO SANDRINE AND PROVIDED HER WITH UPDATE.
[2020-08-30 17:04] LABS: Albumin, Body Fluid 0.9 g/dL; Glucose, Body Fluid 179 mg/dL; Lactate Dehydrogenase, Body Fl 69 U/L; Protein, Body Fluid 1.7 g/dL; Triglycerides, Body Fluid 22 mg/dL
[2020-08-30 17:08] LABS: Appearance, Body Fluid Clear (Clear); Color, Body Fluid L Yellow (None-Yellow); RBC Count, Body Fluid 861 /mm3 (0-0)
--- NOTE | 2020-08-30 17:17 | NUR ---
OG TUBE ADVANCED ABOUT 10CM AFTER REVIEWEING CXR REPORT.
[2020-08-30 17:46] LABS: Total Cell Count, Body Fluid 100
--- NOTE | 2020-08-30 20:59 | NUR ---
SHIFT ASSESSMENT PT INTUBATED AND SEDATED. RESPONDS TO VERBAL STIMULI, FOLLOWING SIMPLE COMMANDS, SQUEEZES BOTH HANDS. BL SOFT WRIST RESTRAINTS IN PLACE. VENT SETTINGS: 14/550/35%/5 c O2 SATS >90%. PRECEDEX @ 0.7MCG/KG/HR. TF @ GOAL. TEMP WHITE CATH IN PLACE DRAINING YELLOW URINE. PT WITH TEMPERATURE OF 102.O, MEDICATED c TYLENOL. RECTAL TUBE IN PLACE DRAINING BROWN, LOOSE STOOL. WILL CONTINUE TO MONITOR.
[2020-08-31 01:09] LABS: ALDOS/RENIN RATIO <.4 (0.0-30.0); ALDOSTERONE <1.0 ng/dL (0.0-30.0)
[2020-08-31 03:57] LABS: BASOPHILS ABSOLUTE AUTO 0.04 K/mm3 (0.00-0.23); BASOPHILS PERCENT AUTO 1 % (0-2); EOSINOPHILS ABSOLUTE AUTO 0.19 K/mm3 (0.00-0.68); EOSINOPHILS PERCENT AUTO 3 % (0-6); Hematocrit 26.4 % (37.0-53.0); Hemoglobin 8.6 g/dL (13.5-17.5); IMMATURE GRAN ABSOLUTE AUTO 0.05 K/mm3 (0.00-0.10); IMMATURE GRAN PERCENT AUTO 1 % (0-1); LYMPHOCYTES ABSOLUTE AUTO 1.24 K/mm3 (0.84-5.20); LYMPHOCYTES PERCENT AUTO 16 % (21-46); MONOCYTES ABSOLUTE AUTO 0.54 K/mm3 (0.16-1.47); MONOCYTES PERCENT AUTO 7 % (4-13); Mean Corpuscular HGB 35.4 pg (26.0-34.0); Mean Corpuscular HGB Conc 32.6 g/dL (31.5-36.5); Mean Corpuscular Volume 109 fL (80-100); Mean Platelet Volume 9.8 fL (9.1-12.4); NEUTROPHILS ABSOLUTE AUTO 5.51 K/mm3 (1.96-9.15); NEUTROPHILS PERCENT AUTO 73 % (41-73); Platelet Count 210 K/mm3 (150-400); RDW Coefficient Variation 13.5 % (11.7-14.2); RDW Standard Deviation 54.3 fL (35.1-46.3); Red Blood Cell Count 2.43 M/mm3 (4.30-5.90); White Blood Cell Count 7.57 K/mm3 (4.00-11.30)
[2020-08-31 04:15] LABS: Alanine Aminotransfer (ALT/SGP 14 U/L (12-78); Albumin, Blood 1.6 g/dL (3.4-5.0); Albumin/Globulin Ratio 0.4 (0.8-1.8); Alk Phos 95 U/L (50-136); Anion Gap 5 mmol/L (6-16); Aspartate Aminotrans (AST/SGOT 21 U/L (12-37); Bilirubin, Total 0.3 mg/dL (0.1-1.0); Blood Urea Nitrogen 16 mg/dL (8-24); Bun/Creatinine Ratio 22.8 (12.0-20.0); CO2, Blood 26 mmol/L (21-32); Calcium, Blood 7.8 mg/dL (8.5-10.1); Chloride, Blood 113 mmol/L (98-108); Globulin, Blood 3.6 g/dL (2.2-4.0); Glomerular Filtration Rate >60 (60-); Glucose, Blood 205 mg/dL (70-99); Magnesium, Blood 1.6 mg/dL (1.6-2.4); Phosphorus, Blood 2.4 mg/dL (2.5-4.9); Potassium, Blood 3.5 mmol/L (3.5-5.5); Sodium, Blood 144 mmol/L (136-145); Total Protein, Blood 5.2 g/dL (6.4-8.2)
--- NOTE | 2020-08-31 06:18 | NUR ---
SHIFT SUMMARY PT REMAINS INTUBATED AND SEDATED, CONTINUES TO FOLLOW SIMPLE COMMANDS. VENT SETTINGS: AC-14/550/35/5 c O2 SATS >90%. PRECEDEX GTT REMAINS AT 0.7MCG/KG/HR. PT BECAME MILDLY ANXIOUS LAST NIGHT, TREATED WITH PRN ATIVAN AND FENTANYL. NO OTHER ACUTE CHANGES IN PT CONDITION. WILL CONTINUE TO MONITOR.
--- NOTE | 2020-08-31 09:30 | NUR ---
PT INTUBATED AND SEDATED. RESPONDS TO VERBAL STIMULI SLOWLY, OPENS EYES, MOVES HANDS. UNABLE TO HELP WITH REPOSITIONING AND IS RESISTANT TO MOVEMENT. EXPIRATORY WHEEZE HEARD T/O ALL LOBES. THICK, CHANDLER SECRETIONS WITH SUCTION. VENT SETTINGS AT 14/550/5/35%, SATS IN 90S. DR. PEREZ ORDERED CT- HEAD/NECK/CHEST AND POSSIBLE THORACENTESIS. TUBE FEEDING AT GOAL OF 55ML/HR, RESIDUALS AT 140-REFED. CURRENT FEVER AT 100.6 AFTER MEDICATED WITH TYLENOL. HR SR AND TACHY IN 100S. SKIN IS EXORIATED BILAT GROIN, BARRIER CREAM APPLIED. WILL ASK FOR NYSTATIN. PT CURRENTLY RESTING AND IN NO APPARENT DISTRESS.
--- NOTE | 2020-08-31 13:57 | NUR ---
PT RETURNED FROM CT. CHEST TUBE PLACED BY DR. PEREZ ON LEFT SIDE AND GOT IMMEDIATE RETURN OF CLEAR YELLOW FLUID THAT SOAKED CAM PADS. PT SEDATED WITH FENTANYL AND ATIVAN AND TOLERATED PROCEDURE WELL. XRAY SHOWED GOOD PLACEMENT OF CHEST TUBE AND PT RESTING AT THIS TIME.
--- NOTE | 2020-08-31 19:11 | NUR ---
PT INTUBATED AND SEDATED, PRECEDEX ONLY. CT SCAN HEAD/NECK/CHEST DONE AT NOON, PNEUMOTHORAX SEEN. CHEST TUBE PLACE LEFT LATERAL CHESTWALL, DRAINAGE OF YELLOW SEROSANGUINOUS FLUID, TOTAL 120ML OUTPUT. VENT A/C 14/550/5/30%, SATS REMAIN IN 90S. ATIVAN AND FENTANYL GIVEN FOR INCREASED PEAK PRESSURES AND RESPIRATIONS, LIKELY SECONDARY TO INCREASED PAIN, RESOLVES AFTER MEDICATED. TF AT GOAL OF 55ML/HR. TEMP IN 101-100 T/O DAY, MEDICATED WITH PRN TYLENOL. TEMP WHITE DRAINING TO GRAVITY W/ CLEAR, YELLOW OUTPUT. PT RESPONDS TO VERBAL STIMULI, RESPONSES SLOW AND WEAK. HR SINUS, RATE 90-120S. PT CURRENTLY RESTING AND IN NO APPARENT DISTRESS.
[2020-09-01 04:42] LABS: BASOPHILS ABSOLUTE AUTO 0.06 K/mm3 (0.00-0.23); BASOPHILS PERCENT AUTO 1 % (0-2); EOSINOPHILS ABSOLUTE AUTO 0.23 K/mm3 (0.00-0.68); EOSINOPHILS PERCENT AUTO 3 % (0-6); Hematocrit 26.5 % (37.0-53.0); Hemoglobin 8.6 g/dL (13.5-17.5); Mean Corpuscular HGB 35.8 pg (26.0-34.0); Mean Corpuscular HGB Conc 32.5 g/dL (31.5-36.5); Mean Corpuscular Volume 110 fL (80-100); Mean Platelet Volume 9.7 fL (9.1-12.4); Platelet Count 225 K/mm3 (150-400); RDW Coefficient Variation 13.4 % (11.7-14.2); RDW Standard Deviation 54.7 fL (35.1-46.3)
[2020-09-01 04:44] LABS: IMMATURE GRAN ABSOLUTE AUTO 0.04 K/mm3 (0.00-0.10); IMMATURE GRAN PERCENT AUTO 1 % (0-1); LYMPHOCYTES ABSOLUTE AUTO 1.52 K/mm3 (0.84-5.20); LYMPHOCYTES PERCENT AUTO 19 % (21-46); MONOCYTES ABSOLUTE AUTO 0.55 K/mm3 (0.16-1.47); MONOCYTES PERCENT AUTO 7 % (4-13); NEUTROPHILS PERCENT AUTO 71 % (41-73)
[2020-09-01 05:05] LABS: Alanine Aminotransfer (ALT/SGP 12 U/L (12-78); Albumin, Blood 1.6 g/dL (3.4-5.0); Albumin/Globulin Ratio 0.4 (0.8-1.8); Alk Phos 89 U/L (50-136); Anion Gap 5 mmol/L (6-16); Aspartate Aminotrans (AST/SGOT 18 U/L (12-37); Bilirubin, Direct 0.1 mg/dL (0.0-0.3); Bilirubin, Indirect 0.2 mg/dL (0.1-0.7); Bilirubin, Total 0.3 mg/dL (0.1-1.0); Blood Urea Nitrogen 18 mg/dL (8-24); Bun/Creatinine Ratio 28.7 (12.0-20.0); CO2, Blood 26 mmol/L (21-32); Calcium, Blood 7.9 mg/dL (8.5-10.1); Chloride, Blood 110 mmol/L (98-108); Creatinine, Blood 0.63 mg/dL (0.60-1.20); Globulin, Blood 3.8 g/dL (2.2-4.0); Glomerular Filtration Rate >60 (60-); Glucose, Blood 157 mg/dL (70-99); Magnesium, Blood 1.5 mg/dL (1.6-2.4); Phosphorus, Blood 3.3 mg/dL (2.5-4.9); Potassium, Blood 3.5 mmol/L (3.5-5.5); Sodium, Blood 141 mmol/L (136-145); Total Protein, Blood 5.4 g/dL (6.4-8.2)
--- NOTE | 2020-09-01 07:31 | NUR ---
SHIFT SUMMARY PT REMAINS INTUBATED AND SEDATED c PRECEDEX. NO CHANGES IN VENT SETTINGS. CONTINUES TO RESPOND TO VERBAL STIMULI, FOLLOWS SIMPLE COMMANDS. PT APPEARS TO BE QUITE PAINFUL POST CHEST TUBE PLACEMENT. WILL PULL AT RESTRAINTS, FIGHTS THE TUBE, AND SHAKES HEAD WHEN ASKED ABOUT PAIN. MEDICATED c PRN FENTANYL WITH GOOD RESPONSE. CHEST TUBE REMAINS CONNECTED TO SUCTION. TF REMAINS AT GOAL c MAX RESIDUAL OF 180. WHITE CATH DRAINING YELLOW URINE. RECTAL TUBE CONTINUES TO DRAIN LOOSE, BROWN STOOL. NO OTHER SIGNIFICANT CHANGES IN PT CONDITION.
--- NOTE | 2020-09-01 09:00 | NUR ---
PT INTUBATED AND SEDATED WITH PRECEDEX. PT WILL OPEN EYE'S ON COMMAND, MULTIPLE DRUM SANDER WITH HANDS, AND MOVES FEET ON COMMAND. WILL NOD YES OR NO TO SOME QUESTIONS. RESP RATE INCREASED AND PT NODS YES TO BEING UNCOMFORTABLE. GAVE FENTANYL AND BOTH RESOLVED. HAS LARGE BORE CHEST TUBE TO L LATERAL THAT HAS SEROUS FLUID IN DRAINAGE CHAMBER OF PLEURAVAC. PLEURAVAC TO SUCTION. DR. PEREZ WANTS TO TRY ANOTHER SBT LATER TODAY. NO SIGN OF DISTRESS AT THE MOMENT.
--- NOTE | 2020-09-01 18:13 | NUR ---
SUMMARY PT INTUBATED AND SEDATED WITH PRECEDEX. THIS AFTERNOON PRECEDEX WAS STOPPED AND SBT ATTEMPTED AGAIN. PT ONLY MADE IT ABOUT 9 MINS. HR INCREASED TO 130'S, BP INCREASED AND RESP RATE IN THE 40'S. PLACED BACK ON AC SETTINGS AND ON PRECEDEX. WHILE REVIEWING CXR FROM THIS AM DR. PEREZ NOTED THE OG TUBE NEEDED TO BE ADVANCED. ABLE TO AUSCULATE AIR IN ABD WHEN AIR INSERTED INTO OG TUBE. OG TUBE IS ALREADY VERY DEEP AND UNABLE TO ADVANCE. DR. PEREZ SAID TO DECREASE TUBE FEED TO 10ML/HR AND OK TO GIVE MEDS DOWN IT. WILL RE EVAL IN AM AFTER CXR AND ASSESS NEED FOR DOBHOFF. PT PROBABLY HAS HIATAL HERNIA OR SOMETHING THAT IS CAUSING DIFFICULTY PASSING OG. PT WILL OPEN EYE'S AND FOLLOWS COMMANDS TO LEAD INVESTIGATOR HANDS AND MOVE FEET. WILL NOD YES OR NO TO PAIN. FENTANYL GIVEN PRN. VERY STIFF THROUGHOUT ESPECIALLY WITH REPOSITIONING. EDAMATOUS FROM WAIST DOWN. LARGE BORE CHEST TUBE TO L LATERAL REMAINS TO SUCTION AND DRAINGING SEROUS FLUID. SANDRINE PHILIP CAME IN TO SEE PT TODAY AND WAS UPDATED BY DR. PEREZ. NO SIGN OF DISTRESS AT THE MOMENT.
--- NOTE | 2020-09-01 19:20 | NUR ---
SHIFT ASSESSMENT PT INTUBATED AND SEDATED WITH PRECEDEX. OPENS EYES TO SPONTANEOUSLY, SLIP BOX CHANGER BOTH HANDS, MOVES FEET ON COMMAND. NODS HEAD IN RESPONSE TO SIMPLE QUESTIONS. TF @ TRICKLE. CHEST TUBE TO L SIDE c SEROUS FLUID DRAINING TO PLEURAVAC. TEMP WHITE CATH PATENT, DRAINING YELLOW URINE. TEMP MILDLY ELEVATED @ 101, WILL MEDICATE c PRN TYLENOL. RECTAL TUBE PATENT, DRAINING LOOSE, BROWN STOOL. WILL CONTINUE TO MONITOR CLOSELY.
[2020-09-02 06:09] LABS: Hemoglobin 8.8 g/dL (13.5-17.5); Mean Corpuscular HGB 35.8 pg (26.0-34.0); Mean Corpuscular HGB Conc 32.6 g/dL (31.5-36.5); Mean Corpuscular Volume 110 fL (80-100); Mean Platelet Volume 10.1 fL (9.1-12.4); Platelet Count 275 K/mm3 (150-400); RDW Coefficient Variation 13.5 % (11.7-14.2); RDW Standard Deviation 54.1 fL (35.1-46.3); Red Blood Cell Count 2.46 M/mm3 (4.30-5.90); White Blood Cell Count 8.27 K/mm3 (4.00-11.30)
[2020-09-02 06:30] LABS: Albumin, Blood 1.6 g/dL (3.4-5.0); Anion Gap 4 mmol/L (6-16); Blood Urea Nitrogen 17 mg/dL (8-24); Bun/Creatinine Ratio 25.9 (12.0-20.0); CO2, Blood 26 mmol/L (21-32); Calcium, Blood 8.2 mg/dL (8.5-10.1); Chloride, Blood 110 mmol/L (98-108); Creatinine, Blood 0.66 mg/dL (0.60-1.20); Glomerular Filtration Rate >60 (60-); Glucose, Blood 143 mg/dL (70-99); Magnesium, Blood 1.7 mg/dL (1.6-2.4); Phosphorus, Blood 3.6 mg/dL (2.5-4.9); Potassium, Blood 3.7 mmol/L (3.5-5.5); Sodium, Blood 140 mmol/L (136-145)
--- NOTE | 2020-09-02 06:30 | NUR ---
SHIFT SUMMARY PT REMAINS INTUBATED AND SEDATED ON PRECEDEX. VENT SETTINGS REMAIN THE SAME. VSS T/O THE NIGHT. MEDICATED c FENTANYL PRN. CHEST TUBE DRESSING CHANGED. NO SIGNIFICANT CHANGES IN PT CONDITION DURING THE NIGHT. WILL CONTINUE TO MONITOR.
--- NOTE | 2020-09-02 09:37 | NUR ---
PT INTUBATED AND SEDATED. RESPONDS TO VERBAL STIMULI, OPENS EYES SPONTANEOUSLY, MOVES HANDS AND FEET, AND ABLE TO HELP LIFT LEGS WHEN REPOSITIONING, OPENED MOUTH FOR ORAL CARE. VENT SETTINGS: A/C 14/550/5/30%. CHEST TUBE IN PLACE LEFT LATERAL, DRAINING YELLOW SEROSANGUINOUS FLUID, DRESSING INTACT. LEFT LUNG SOUNDS IMPROVING, RIGHT HAS INSP & EXP WHEEZES. TF AT 10ML, 20ML RESIDUALS-REFED. SMALL AMOUNT OF WHAT APPEARS TO BE TUBE FEED IN MOUTH, SUCTIONED. DOBHOFF ORDERED BY DR. PEREZ. BOWEL TONES ACTIVE X4 QUAD, RECTAL TUBE INTACT. SKIN IN BILAT GROIN REMAINS REDDENED, BUT IMPROVED WITH NYSTATIN CREAM BID. HR REMAINS IN 90S-110S, VSS. PT TOLERATED REPOSITIONING WELL, IS CURRENTLY RESTING AND IN NO APPARENT DISTRESS.
--- NOTE | 2020-09-02 12:30 | NUR ---
OG TUBE REMOVED PER DR. PEREZ'S ORDERS. ATTEMPTED TO PLACE DOBHOFF, UNSUCESSFUL X2 WITH XRAY CONFIRMATION. WILL ATTEMPT TO REPLACE OG THIS AFTERNOON.
--- NOTE | 2020-09-02 17:22 | NUR ---
SHIFT SUMMARY PT REMAINS INTUBATED AND SEDATED. RESPONDING WELL TO VERBAL STIMULI, ABLE TO FOLLOW SIMPLE COMMANDS, HOWEVER IS STILL RESISTANT AT TIMES WITH REPOSITIONING. LUNG SOUNDS IMPROVING SLIGHTLY ON LEFT SIDE, CHEST TUBE IN PLACE AND DRAINING YELLOW SEROSANGUINEOUS FLUID. VENT SETTINGS REMAIN UNCHAINGED AT A/C 14/550/5/30%, SATS STABLE IN 90S. OG TUBE REMOVED AT [address] PEREZ ORDERS, DOBHOFF PLACEMENT ATTEMPTED IMMEDIATELY AFTER X2 BUT UNSUCCESSFUL PER XRAY. OG ORDERED AGAIN BY DR PEREZ AND PLACEMENT ATTEMPTED AT 1500 X3 WITH RT, BUT AGAIN UNSUCCESSFUL PER XRAY. DR PEREZ OK'D FOR OG TO REMAIN OUT AT THIS TIME. LASIX AND ALBUMIN GIVEN PER DR OWENS, URINE OUTPUT INCREASED AND WHITE DRAINING TO GRAVITY, URINE IS CLEAR AND PALE YELLOW. HR REMAINED IN 90-100S T/O THE DAY, EDEMA HAS IMPROVED SLIGHTLY. PT'S DAUGHTER IS HERE, DR. PEREZ IS UPDATING AND SHE IS NEXT OF KIN. PT IS CURRENTLY RESTING AND IN NO APPARENT DISTRESS.
--- NOTE | 2020-09-02 19:40 | NUR ---
SHIFT ASSESSMENT ASSUMED CARE OF PT @ 1900, REPORT FROM LEEANNE RN AND YOGESH, DISCHARGE RN. PT INTUBATED AND SEDATED c PRECEDEX. FOLLOWS SIMPLE COMMANDS. ALERT IN THE ROOM, REACHING FOR CORDS EVEN THOUGH WRIST RESTRAINTS IN PLACE. PT APPEARS UNCOMFORTABLE, NODDED HEAD YES WHEN ASKED IF HE WAS HURTING. MEDICATED c PRN FENTANYL, APPEARS TO BE MORE COMFORTABLE NOW. VENT SETTINGS : AC-14/550/5/30% c O2 SATS >90%. CHEST TUBE TO LEFT LATERAL TO SUCTION c SEROSANGUINOUS FLUID. DRESSING C/D/I. LUNG SOUNDS IMPROVING TO LEFT SIDE. WHITE CATH PATENT, DRAINING LIGHT YELLOW URINE. RECTAL TUBE IN PLACE, DRAINING BROWN, LOOSE STOOL. WILL CONTINUE TO MONITOR CLOSELY.
[2020-09-03 03:33] LABS: BASOPHILS ABSOLUTE AUTO 0.05 K/mm3 (0.00-0.23); BASOPHILS PERCENT AUTO 1 % (0-2); EOSINOPHILS ABSOLUTE AUTO 0.28 K/mm3 (0.00-0.68); EOSINOPHILS PERCENT AUTO 4 % (0-6); Hemoglobin 7.1 g/dL (13.5-17.5); Mean Corpuscular HGB Conc 32.3 g/dL (31.5-36.5); Mean Corpuscular Volume 108 fL (80-100); Mean Platelet Volume 9.7 fL (9.1-12.4); Platelet Count 245 K/mm3 (150-400); RDW Coefficient Variation 13.1 % (11.7-14.2); Red Blood Cell Count 2.03 M/mm3 (4.30-5.90); White Blood Cell Count 6.44 K/mm3 (4.00-11.30)
[2020-09-03 03:34] LABS: IMMATURE GRAN ABSOLUTE AUTO 0.05 K/mm3 (0.00-0.10); IMMATURE GRAN PERCENT AUTO 1 % (0-1); LYMPHOCYTES ABSOLUTE AUTO 2.07 K/mm3 (0.84-5.20); LYMPHOCYTES PERCENT AUTO 32 % (21-46); MONOCYTES ABSOLUTE AUTO 0.93 K/mm3 (0.16-1.47); MONOCYTES PERCENT AUTO 14 % (4-13); NEUTROPHILS ABSOLUTE AUTO 3.06 K/mm3 (1.96-9.15); NEUTROPHILS PERCENT AUTO 48 % (41-73)
[2020-09-03 03:54] LABS: Alanine Aminotransfer (ALT/SGP 10 U/L (12-78); Albumin, Blood 1.4 g/dL (3.4-5.0); Albumin/Globulin Ratio 0.5 (0.8-1.8); Alk Phos 60 U/L (50-136); Anion Gap 7 mmol/L (6-16); Aspartate Aminotrans (AST/SGOT 13 U/L (12-37); Bilirubin, Direct 0.2 mg/dL (0.0-0.3); Bilirubin, Indirect 0.9 mg/dL (0.1-0.7); Bilirubin, Total 1.1 mg/dL (0.1-1.0); Blood Urea Nitrogen 11 mg/dL (8-24); Bun/Creatinine Ratio 20.4 (12.0-20.0); CO2, Blood 21 mmol/L (21-32); Chloride, Blood 115 mmol/L (98-108); Creatinine, Blood 0.54 mg/dL (0.60-1.20); Globulin, Blood 2.8 g/dL (2.2-4.0); Glomerular Filtration Rate >60 (60-); Glucose, Blood 100 mg/dL (70-99); Magnesium, Blood 1.4 mg/dL (1.6-2.4); Phosphorus, Blood 3.2 mg/dL (2.5-4.9); Potassium, Blood 2.6 mmol/L (3.5-5.5); Sodium, Blood 143 mmol/L (136-145); Total Protein, Blood 4.2 g/dL (6.4-8.2)
[2020-09-03 03:55] LABS: Calcium, Blood 6.2 mg/dL (8.5-10.1)
--- NOTE | 2020-09-03 07:39 | NUR ---
SHIFT SUMMARY PT REMAINS INTUBATED AND SEDATED c PRECEDEX. STILL FOLLOWING SIMPLE COMMANDS. SEEMS TO BE MORE ALERT THAN LAST NIGHT, FIGHTING HARDER TO GRAB CORDS AND TUBES. NO CHANGES IN VENT SETTINGS. CHEST TUBE REMAINS PATENT, DRAINING SEROSANGUINOUS FLUID. WHITE CATH DRAINING CLEAR, LIGHT YELLOW URINE. RECTAL TUBE IN PLACE. SBT THIS AM, PT DID MUCH BETTER THAN THE PREVIOUS NIGHTS, MADE THE FULL 30 MINUTES c PRECEDEX GTT @ 0.7. NO OTHER SIGNIFICANT CHANGES IN PT CONDITION. REPORT GIVEN TO ONCOMING NURSE.
--- NOTE | 2020-09-03 08:30 | NUR ---
CARE ASSUMED ASSESSMENTS COMPLETED. PT SEDATED WITH PRECEDEX 0.7MCG, OPENS EYES TO VOICE, DOES NOT TRACK OR FOLLOW COMMANDS AT THIS TIME, RESISTS ORAL CARES AND REPOSITIONING. VILLA. HR SINUS 80'S-90'S, BP STABLE, NO PRESSORS, POTASSIUM BEING REPLACED. LS CLEAR, DIMINISHED IN L BASE. L LATERAL CHEST TUBE TO WALL SUCTION, -20CM H20, SMALL AIR LEAK NOTED. CHEST TUBE CONTINUES TO PUT OUT SEROUS DRAINAGE, NO BLOOD NOTED. VENT SETTINGS AC 14, Vt 550, PEEP 5, FIO2 30%, RR 24-26, SPO2 96%, SMALL CHANDLER SECRETIONS FROM ETT. ABD DISTENDED, UMBILLICAL HERNIA NOTED. BT HYPOACTIVE, RECTAL TUBE IN PLACE WITH SMALL AMOUNT OF BROWN LIQUID STOOL. WHITE WITH CLEAR YELLOW URINE. PT EDEMATOUS IN ALL EXTREMS, IN GENITALS, AND IN LOWER ABDOMEN. AM CARES COMPLETED, PT REPOSITIONED. DAUGHTER AT BEDSIDE, PALLIATIVE TO COME IN AND SPEAK WITH DAUGHTER.
--- NOTE | 2020-09-03 13:49 | NUR ---
UPDATE PRECEDEX DC'D PER DR. PARIKH, WILL START PROPOFOL WHEN SEDATION VACATION COMPLETE. PT CURRETNLY AWAKE, ANSWERING YES/NO APPROPRIATELY, FOLLOWING SOME COMMANDS. HR HAS INCREASED TO 90'S, RR 26, SPO2 96%. VENT SETTINGS UNCHANGED, LS CLEAR, ETT OUTPUT REMAINS SMALL CHANDLER, CHEST TUBE OUTPUT SEROUS WITH NO AIR LEAK NOTED AT THIS TIME. DAUGHTER REMAINS AT BEDSIDE, HAS DECIDED TO MAKE PT DNR, WILL DISCUSS WITH DR. PARIKH. PT REPOSITIONED, REMAINS RESISTANT TO CARES.
[2020-09-03 15:06] LABS: Vancomycin, Trough 40.8 ug/mL (5.0-10.0)
--- NOTE | 2020-09-03 15:34 | NUR ---
UPDATE PT BECAME AGITATED DURING SEDATION VACATION. FOLLOWED DIRECTIONS AND ANSWERED YES/NO, RR 30, HR 105, BP INCREASING. SEDATED WITH PROPOFOL 20MCG AND FENTANYL 100MCG IVP, NOW RESTING QUIETLY, RR 25, HR AND BP REMAIN ELEVATED, WILL CONTINUE TO MONITOR AND TREAT BP WITH HYDRALAZINE NEEDED. [facility] RECEIVED, REPORTED TO PHARMACIST, [facility].
[2020-09-03 16:06] LABS: Vancomycin, Random 38.9 ug/mL
--- NOTE | 2020-09-03 17:33 | NUR ---
Spiritual care note: I met with pt's dtr, Justine, outside of room. she was tearful and emotionally overwhelmed. She told me of pt's long history of suicidal statements and alcoholism. She states, "I have never seen him drink anything but alcohol--he drinks it like water." She is getting enormous pressure from family and pt's friends about next steps. Apparently all are concerned about his very liMited possessions. "Everyone wants a piece of him. He's not even gone. " Justine states that she hopes that pt can recover from his "breathing issues." She does not appear aware of the toll years of drinking have taken on pt's life. She admits they have been largely estranged for the past 15 years due to his negativity and self-inflicted health problems. She is the only blood relative and tells me she is trying to make the best choice for her dad. She was dissapointed when I could not, in good conscience, notarize a durable POA. His mentation just does not appear in-tact enough for him to understand this complicated document. Per RN, he may not ever regain strong lucidity. I believe Justine will benefit from an [id number] explaination of pt's numerous co-morbidities, and options moving forward. I suspect this has all been explained to her, but Justine is overwhelmed and therefore not processing pt's complete dx and potential for healing. We had an easy rapport and Justine will benefit from continued adoption counselor/support.
--- NOTE | 2020-09-03 18:53 | NUR ---
END OF SHIFT VANCO REDRAW REMAINED ELEVATED, VANCO HELD TODAY, WILL RECHECK TROUGH IN AM. PT SEDATED WITH PROPOFOL 35MCG AT THIS TIME, REMAINS LIGHTLY SEDATED, INTERMITTENTLY FOLLOWS DIRECTION AND ANSWERS YES/NO QUESTIONS. PT AGITATED DURING CARES WITH BP AND RR INCREASING, MEDICATED WITH FENTANYL FOR PAIN/AGITATION WITH GOOD RESULTS. LS REMAIN CLEAR, VENT SETTINGS UNCHANGED, SMALL AMOUNT OF CHANDLER ETT SECRETIONS THIS SHIFT. 350ML SEROUS FLUID FROM CHEST TUBE TODAY. HR 110-120'S SINCE PRECEDEX DC'D, DR. PARIKH AWARE, ATIVAN ADMINISTERED PER ORDERS AT THIS TIME FOR TACHYCARDIA. HR REMAINS SINUS, BP DROPS AFTER FENTANYL BUT RECOVERS, MAPS REMAIN >60. ABD REMAINS DISTENDED, BT PRESENT, RECTAL TUBE LEAKED THIS EVENING, REMOVED AND REINSERTED, NO LEAKING NOTED AT THIS TIME. STOOL REMAINS BROWN LIQUID. WHITE WITH ABOUT 3L CLEAR YELLOW OUTPUT THIS SHIFT, PT REMAINS EDEMATOUS IN EXTREMS AND LOWER ABD/HIPS, LIMBS ELEVATED. TESTICLES AND PENIS REMAIN EDEMATOUS, SKIN TO PERIANAL AREA AND UPPER THIGHS AROUND TESTICLES IS RED AND EXCORIATED, SKIN CARE WITH ANTI FUNGAL CREAM AND POWDER MULTIPLE TIMES THIS SHIFT. TESTICLES IN SLING FOR ELEVATION. PT NOW LIMITED CODE, INTUBATION ONLY PER HIS DAUGHTER. REPORT TO ONCOMING SHIFT.
--- NOTE | 2020-09-03 20:33 | NUR ---
Assumed care. Bedside report recieved. Pt resting quietly in room at this time with trach midline, vent settings are 18/350/5/30%. Pt responds to verbal stimuli, able to follow commands when asked. Pt has profol running at 15 mcg/kg/min, precedex running at 0.5 mcg/kg/hr and NS at 10 ml/hr. Pt repositioned, oral care, paula-care and catheter care completed. Villatoro catheter in place, draining cloudy yellow liquid. Tube feed running via peg tube at 47 ml/hr goal rate. Pt responds to questions by nodding yes or no, no acute distress or needs noted at this time.
--- NOTE | 2020-09-03 23:30 | NUR ---
ASSUMED CARE AT 1900 PT LAYING IN BED INTUBATED WITH VENT SETTINGS AC 14, TV 450, PEEP 5, FIO2 30%; CHEST TUBE TO LT LATERAL CHEST WALL TO SUCTION, YELLOW CLEAR OUTPUT NOTED; SMALL AMOUNT OF ORAL SECREATIONS DURING ORAL CARE; PT DOES NOT TOLERATE ORAL CARE WELL. PT OPENS EYES WHEN ASKS; PT ATTEMPTS TO TRY AND SPEAK WHEN ASKED YES/NO QUESTIONS; PT DID NOT FOLLOW DIRECTIONS WHEN ASKED. SINUS TACHYCARDIA NOTED; HR 120-140'S. SBP 100-140. WHITE AND RECTAL TUBE PATENT AND DRAINING TO GRAVITY. PROPOFOL INFUSING AT 35MCG/KG/MIN. SEE SHIFT ASSESSMENT FOR FULL ASSESSMENT.
[2020-09-04 04:37] LABS: PCO2 Arterial 30.7 mmHg (35-45); PO2 Arterial 67.3 mmHg (80-100)
[2020-09-04 05:21] LABS: BASOPHILS ABSOLUTE AUTO 0.11 K/mm3 (0.00-0.23); BASOPHILS PERCENT AUTO 1 % (0-2); EOSINOPHILS ABSOLUTE AUTO 0.38 K/mm3 (0.00-0.68); EOSINOPHILS PERCENT AUTO 3 % (0-6); Hematocrit 27.3 % (37.0-53.0); Hemoglobin 8.9 g/dL (13.5-17.5); IMMATURE GRAN ABSOLUTE AUTO 0.07 K/mm3 (0.00-0.10); IMMATURE GRAN PERCENT AUTO 1 % (0-1); LYMPHOCYTES ABSOLUTE AUTO 2.17 K/mm3 (0.84-5.20); LYMPHOCYTES PERCENT AUTO 17 % (21-46); MONOCYTES ABSOLUTE AUTO 0.86 K/mm3 (0.16-1.47); MONOCYTES PERCENT AUTO 7 % (4-13); Mean Corpuscular HGB 35.2 pg (26.0-34.0); Mean Corpuscular HGB Conc 32.6 g/dL (31.5-36.5); Mean Corpuscular Volume 108 fL (80-100); Mean Platelet Volume 9.7 fL (9.1-12.4); NEUTROPHILS ABSOLUTE AUTO 8.92 K/mm3 (1.96-9.15); NEUTROPHILS PERCENT AUTO 71 % (41-73); Platelet Count 432 K/mm3 (150-400); RDW Coefficient Variation 13.4 % (11.7-14.2); Red Blood Cell Count 2.53 M/mm3 (4.30-5.90); White Blood Cell Count 12.51 K/mm3 (4.00-11.30)
[2020-09-04 05:49] LABS: Magnesium, Blood 1.7 mg/dL (1.6-2.4)
[2020-09-04 05:56] LABS: Alanine Aminotransfer (ALT/SGP 15 U/L (12-78); Albumin, Blood 2.1 g/dL (3.4-5.0); Albumin/Globulin Ratio 0.5 (0.8-1.8); Alk Phos 90 U/L (50-136); Anion Gap 12 mmol/L (6-16); Aspartate Aminotrans (AST/SGOT 19 U/L (12-37); Bilirubin, Direct 0.2 mg/dL (0.0-0.3); Bilirubin, Indirect 0.3 mg/dL (0.1-0.7); Bilirubin, Total 0.5 mg/dL (0.1-1.0); Blood Urea Nitrogen 11 mg/dL (8-24); Bun/Creatinine Ratio 13.4 (12.0-20.0); CO2, Blood 23 mmol/L (21-32); Chloride, Blood 102 mmol/L (98-108); Creatinine, Blood 0.82 mg/dL (0.60-1.20); Globulin, Blood 4.2 g/dL (2.2-4.0); Glomerular Filtration Rate >60 (60-); Glucose, Blood 91 mg/dL (70-99); Phosphorus, Blood 4.7 mg/dL (2.5-4.9); Potassium, Blood 3.6 mmol/L (3.5-5.5); Sodium, Blood 137 mmol/L (136-145)
[2020-09-04 05:58] LABS: Calcium, Blood 8.5 mg/dL (8.5-10.1); Total Protein, Blood 6.3 g/dL (6.4-8.2)
--- NOTE | 2020-09-04 06:39 | NUR ---
END OF SHIFT SUMMARY PT CONT TO BE INTUBATED WITH VENT SETTINGS AC 14, TV 550, PEEP 5, FIO2 30%; PT HAD MODERATE AMOUNT OF ORAL SECREATIONS; FAILED SBT, SEE RT NOTES; CHEST TUBE TO LT LATERAL CHEST WALL IN PLACE AND TO SUCTION, 50ML OF YELLOW OUTPUT T/O SHIFT. PT ABLE TO OPEN EYES TO VERBAL STIMULI BUT HAS NOT FOLLOWED DIRECTIONS; PT DOES NOT TOLERATE ORAL CARE WELL TURNING HEAD [id number]. MAX TEMP 101.4; DOWN TO 99.6 AROUND 0200. HR 120'S, SINUS TACH. SBP 110-130. RECTAL TUBE AND WHITE IN PLACE. PICC TO KELLY. WILL REPORT TO AM RN WHEN AVAILABLE.
--- NOTE | 2020-09-04 09:07 | NUR ---
AFIB RVR DURING ORAL CARE TODAY PT'S HR SWITCHED TO AFIB AND RATE JUMPED TO 150S. GAVE PT A COUPLE MINUTES TO SETTLE, BUT HR REMAINED IN 150S. GAVE PT FENTANYL FOR PAIN AND SEDATION BUT HR JUMPED TO 150S AND BP DROPPED TO 80S. DR. PARIKH NOTIFIED AND ORDERS RECEIVED FOR AMIO BOLUS AND GTT. STARTED. PT'S HR STILL 130-150S, AFIB. BP NOW IN THE 90S. CONTINUING TO MONITOR.
--- NOTE | 2020-09-04 13:19 | NUR ---
REASSESSMENT PT REMAINS INTUBATED. SEDATION TURNED OFF AT 1109. PT IS MORE ALERT, TURNS HEAD TO VOICE. HE WON'T SQUEEZE HANDS OR OPEN/CLOSE HIS EYES ON COMMAND BUT HE DID APPEAR TO SLIGHTLY WIGGLE HIS TOES AND DID THIS TWICE IN A ROW. LUNGS ARE COARSE IN THE BASES. LARGE AMT OF THICK, CREAM COLORED SPUTUM SUCTIONED TWICE THIS MORNING. PT CONVERTED BACK TO SINUS TACH AT 0945. AMIODARONE GTT STILL INFUSING. DOBHOFF PLACED THIS AFTERNOON. DR. PARIKH VERIFIED PLACEMENT WAS WHERE HE WANTED IT. DOBHOFF SECURED AT 53CM. RECTAL TUBE WITH SM AMT OF LIQUID STOOL. SKIN IS EDMEATOUS. DIFFUSE REDNESS ON L FLANK/HIP BELOW THE CHEST TUBE. NO CREPITUS. CHEST TUBE WITH SEROUS DRAINAGE. PT'S DAUGHTER CALLED THIS MORNING AND WAS UDPATED BY NURSING STAFF. CONTINUING TO MONITOR.
--- NOTE | 2020-09-04 16:31 | NUR ---
T/C received from friend / cousin of the principal expressing impending concerns about Moniques intentions. She is listed as the NOK in the EHR. Mr Ziyad Chun Benedict wanted to attest on record that Justine is not the adopted or biological daughter of the principal, and therefore Carey should function as the primary decision maker and proxy.
--- NOTE | 2020-09-04 17:02 | NUR ---
SHIFT SUMMARY PT REMAINS INTUBATED. HE HAS TOLERATED BEING OFF SEDATION SINCE 1100. PT LOOKS AT THIS NURSE WHEN ENTERING THE ROOM, BUT HASN'T BEEN FOLLOWING COMMANDS CONSISTENTLY THIS AFTERNOON. HIS LUNGS ARE CLEAR. LARGE AMT OF SPUTUM SUCTIONED TODAY. THIS MORNING IT WAS THICK AND OFFWHITE, BUT THIS AFTERNOON IT WAS THINNER AND CLEAR. HE REMAINED IN SINUS TACH AFTER CONVERTING BACK, RATE IN THE 1TEENS. STILL EDMEATOUS. WHITE WITH CL YELLOW URINE. RECTAL TUBE WITH SM AMT OF LIQUID STOOL. DOBHOFF PLACED AND PT APPEARS TO BE TOLERATING TUBE FEED. PT'S SO VISITED THIS AFTERNOON. CONTINUING TO MONITOR.
--- NOTE | 2020-09-04 18:24 | NUR ---
Spiritual care note: I met with pt's gf at bedside today. They have been together for a little over a year according to her. She was very concerned about his possessions and complained about pt's dtr, Justine. I encouraged gf to focus on the fact that Asad is still alive and stay focused on here and now. I will remain available to family. Pt appeared non-responsive, but did open eyes slightly to voice. He does ont appear in any distress.
--- NOTE | 2020-09-04 18:54 | NUR ---
PT HAS TEMPERATURE READING OF 103.3F. PRN TYLENOL GIVEN WELL COOL RAG TO PT'S FOREHEAD, FAN ON PT AND ICE PACKS UNDER ARMS.
[2020-09-05 04:06] LABS: BASOPHILS ABSOLUTE AUTO 0.13 K/mm3 (0.00-0.23); BASOPHILS PERCENT AUTO 1 % (0-2); EOSINOPHILS ABSOLUTE AUTO 0.07 K/mm3 (0.00-0.68); EOSINOPHILS PERCENT AUTO 0 % (0-6); Hematocrit 25.9 % (37.0-53.0); Hemoglobin 8.6 g/dL (13.5-17.5); IMMATURE GRAN ABSOLUTE AUTO 0.13 K/mm3 (0.00-0.10); IMMATURE GRAN PERCENT AUTO 1 % (0-1); LYMPHOCYTES ABSOLUTE AUTO 1.58 K/mm3 (0.84-5.20); LYMPHOCYTES PERCENT AUTO 7 % (21-46); MONOCYTES ABSOLUTE AUTO 1.08 K/mm3 (0.16-1.47); MONOCYTES PERCENT AUTO 5 % (4-13); Mean Corpuscular HGB 35.2 pg (26.0-34.0); Mean Corpuscular HGB Conc 33.2 g/dL (31.5-36.5); Mean Corpuscular Volume 106 fL (80-100); Mean Platelet Volume 9.7 fL (9.1-12.4); NEUTROPHILS ABSOLUTE AUTO 19.94 K/mm3 (1.96-9.15); NEUTROPHILS PERCENT AUTO 87 % (41-73); Platelet Count 417 K/mm3 (150-400); RDW Coefficient Variation 13.5 % (11.7-14.2); RDW Standard Deviation 52.5 fL (35.1-46.3); Red Blood Cell Count 2.44 M/mm3 (4.30-5.90); White Blood Cell Count 22.93 K/mm3 (4.00-11.30)
[2020-09-05 04:12] LABS: PCO2 Arterial 34.8 mmHg (35-45); PO2 Arterial 58.2 mmHg (80-100); pH Blood Arterial 7.54 (7.35-7.45)
[2020-09-05 04:23] LABS: Alanine Aminotransfer (ALT/SGP 14 U/L (12-78); Albumin, Blood 1.9 g/dL (3.4-5.0); Albumin/Globulin Ratio 0.5 (0.8-1.8); Alk Phos 93 U/L (50-136); Anion Gap 6 mmol/L (6-16); Aspartate Aminotrans (AST/SGOT 13 U/L (12-37); Bilirubin, Direct 0.2 mg/dL (0.0-0.3); Bilirubin, Indirect 0.2 mg/dL (0.1-0.7); Bilirubin, Total 0.4 mg/dL (0.1-1.0); Blood Urea Nitrogen 10 mg/dL (8-24); Bun/Creatinine Ratio 10.4 (12.0-20.0); CO2, Blood 30 mmol/L (21-32); Calcium, Blood 7.8 mg/dL (8.5-10.1); Chloride, Blood 101 mmol/L (98-108); Creatinine, Blood 0.96 mg/dL (0.60-1.20); Globulin, Blood 4.2 g/dL (2.2-4.0); Glomerular Filtration Rate >60 (60-); Glucose, Blood 208 mg/dL (70-99); Magnesium, Blood 1.4 mg/dL (1.6-2.4); Phosphorus, Blood 3.6 mg/dL (2.5-4.9); Potassium, Blood 3.2 mmol/L (3.5-5.5); Sodium, Blood 137 mmol/L (136-145); Total Protein, Blood 6.1 g/dL (6.4-8.2); Vancomycin, Random 20.3 ug/mL
--- NOTE | 2020-09-05 06:30 | NUR ---
PT CONT ON VENT W WRISTS RESTRAINED. PT HAS BEEN MED W FENTANYL FOR PAIN/ SEDATION. PT HAS CONT TO BE FEBRILE THIS SHIFT. INITIALLY, IT SEEMED PT TEMP WAS DECREASING WITH PT CONTINUING W ICE PACKS TO GROIN AND UNDER ARMS AND NECK. TEMP PROBE WAS PLACED NASOPHARANGEAL (WHITE PROBE NOT WORKING, AND PT ALSO HAS RECTAL TUBE), TEMP WAS 104*. PT MED W TYLENOL AND PT HERNANDEZ CULTURED. PT HAS BEEN ABLE TO OPEN EYES TO VOICE, AND WEAK ACCOUNTING PROFESSOR. ABLE TO MOVE ARMS TO CHEST SLIGHTLY, VERY WEAK AND W STIFF SHOULDERS. SPUTUM HAS BEEN THIN, AND CREAMY WHITE COLOR, BUT LATER IN SHIFT, NOTED TO BE COLEMAN/YELLOW COLOR. ORAL SECRETIONS HAVE BEEN MINIMAL. CHEST TUBE L LATERAL CHEST SITE IS CLEAR, NO SQ EMPHYSEMA, DRNG IS SEROUS. FIO2 WAS INCREASED TO 45% AFTER ABG WAS RESULTED. PT AGAIN PACKED W ICE PACKS, FAN ON WELL.
--- NOTE | 2020-09-05 09:29 | NUR ---
CARE ASSUMED OF PT AT 0700. PT IS RECEIVING ONLY FENTANYL PRN FOR SEDATION. PT SLEEPING ON VENT; EYES OPEN AND PT LOOKS AT SPEAKER; PT DOES NOT NOD HEAD TO QUESTIONS, PT DOES NOT FOLLOW ANY COMMANDS, PT GRIMACES W CARE, JOINTS STIFF. PT DOES MOVE ALL EXT; GROSS MOVEMENT.
--- NOTE | 2020-09-05 10:28 | NUR ---
PT VERY AWAKE, DOES NOT FOLLOW COMMANDS, VERY RESISTANT TO CARE. SHAKES HEAD BACK AND FORTH W ORAL CARE, PUSHES AGAINST US W TURNS. CHEST TUBE TO LEFT CHEST INTACT; DRSY C/D/I, NO CREPITUS, NO AIR LEAK, DRAINING SMALL AMT OF SEROUS FLUID. AMIO GTT COMPLETED AT 0945. TEMP DOWN TO 100.0 FROM 102.0 AFTER TYLENOL, ICE PACKS, AND FAN.
--- NOTE | 2020-09-05 10:51 | NUR ---
DR ALVA IN TO SEE PT; FULL UPDATE GIVEN. DR ALVA CLAMPED THE CHEST TUBE; REPEAT XRAY ORDERED FOR 1500; CHEST TUBE MAY BE DC'D TODAY. CDIFF ORDERED.
[2020-09-05 13:04] LABS: C DIFFICILE DNA NEGATIVE (Negative)
--- NOTE | 2020-09-05 13:30 | NUR ---
PT'S DAUGHTER GIVEN UPDATE VIA PHONE. NOTE SIGNED BY DR ALVA AND GIVEN TO PT'S DAUGHTER STATING PT'S CONDITION FOR LEGAL REASON; ALLOW HER TO PAY BILLS, TALK TO INSURANCE ETC. NO CHANGE IN PREVIOUS NEURO ASSESSMENT. PICC LINE DRSG CHANGED. TUBE FEEDING INCREASED TO 45CC/HR PER NUTRITION. CDIFF NEG. PT CONT TO TOLERATE CHEST TUBE BEING CLAMPED. THERE HAS BEEN AN INCREASE IN ETT SECRETIONS, COPIOUS AMTS OF THICK YELLOW SECRETIONS SUCTIONED.
--- NOTE | 2020-09-05 13:48 | NUR ---
PT'S ETT SECRETIONS RESEMBLE TUBE FEEDS IN COLOR AND CONSISTENCY. DR ALVA NOTIIFIED. TUBE FEEDING STOPPED FOR NOW.
--- NOTE | 2020-09-05 14:41 | NUR ---
PT'S STEPDAUGHTER AT BEDSIDE; EDUARDO. STAT CHEST XRAY COMPLETED. PT MUCH MORE AGITATED, COUGHING ON VENT, PEAK PRESSURES 30, 45 W COUGH. SATS STABLE 94-96%, RESP LOW 20'S.
--- NOTE | 2020-09-05 15:27 | NUR ---
BLUE DYE ORDERED TO BE ADDED TO TUBE FEEDS TO ASSESS FOR ASPIRATION. PT'S TUBE FEEDS TO REMAIN CLAMPED OVER NIGHT W REPEAT CHEST XRAY IN AM; TO REASSESS NEED FOR CHEST TUBE.
[2020-09-05 17:38] LABS: Magnesium, Blood 1.6 mg/dL (1.6-2.4); Potassium, Blood 3.5 mmol/L (3.5-5.5)
--- NOTE | 2020-09-05 18:11 | NUR ---
PT HAS CONTINUED TO TOLERATE CHEST TUBE BEING CLAMPED. LEFT CHEST TUBE DRSG REMAINS C/D/I, NO CREPITUS. PT DID NOT REQUIRE PRECEDEX OR PROPOFOL FOR SEDATION. FENT 75MCG X3, ATIVAN 1MG X1 GIVEN FOR SEDATION/COMFORT. TMAX 102.7, TYLENOL GIVEN. BLUE DYE IS IN TUBE FEEDING, SPUTUM REMAINS THICK YELLOW IN COPIOUS AMTS. PT CONT TO BE AWAKE AT TIMES, UNABLE TO FOLLOW DIRECTIONS, OR NOD HEAD APPROPRIATLEY TO QUESTIONS. MAG/K+ RESULTS CALLED INTO DR OWENS.
--- NOTE | 2020-09-05 20:17 | NUR ---
SHIFT ASSESSMENT ASSUMED CARE OF PT @ 1900. PT INTUBATED, SEDATED c PRN FENTANYL. PT IS ALERT ON THE VENTILATOR, OPENS EYES SPONTANEOUSLY, WILL NOT CONSISTENTLY LOOK AT THIS NURSE. WILL NOT FOLLOW SIMPLE COMMANDS. IN BILATERAL SOFT WRIST RESTRAINTS. TF INFUSING VIA DOBHOFF @ GOAL RATE c BLUE DYE ADDED. LS CLEAR, CHEST TUBE TO LEFT LATERAL CHEST WALL CLAMPED, MAY REMOVE TOMORROW. WHITE CATH DRAINING CLEAR, YELLOW URINE. RECTAL TUBE DRAINING LOOSE GREEN/ BROWN STOOL. WILL CONTINUE TO MONITOR.
[2020-09-06 04:32] LABS: Hematocrit 25.5 % (37.0-53.0); Hemoglobin 8.4 g/dL (13.5-17.5); Mean Corpuscular HGB 35.3 pg (26.0-34.0); Mean Corpuscular HGB Conc 32.9 g/dL (31.5-36.5); Mean Corpuscular Volume 107 fL (80-100); Mean Platelet Volume 10.2 fL (9.1-12.4); Platelet Count 405 K/mm3 (150-400); RDW Coefficient Variation 13.3 % (11.7-14.2); RDW Standard Deviation 52.7 fL (35.1-46.3); Red Blood Cell Count 2.38 M/mm3 (4.30-5.90); White Blood Cell Count 21.63 K/mm3 (4.00-11.30)
[2020-09-06 05:01] LABS: Alanine Aminotransfer (ALT/SGP 12 U/L (12-78); Albumin, Blood 1.7 g/dL (3.4-5.0); Albumin/Globulin Ratio 0.4 (0.8-1.8); Alk Phos 84 U/L (50-136); Anion Gap 5 mmol/L (6-16); Aspartate Aminotrans (AST/SGOT 13 U/L (12-37); Bilirubin, Direct 0.2 mg/dL (0.0-0.3); Bilirubin, Indirect 0.2 mg/dL (0.1-0.7); Bilirubin, Total 0.4 mg/dL (0.1-1.0); Blood Urea Nitrogen 17 mg/dL (8-24); Bun/Creatinine Ratio 19.4 (12.0-20.0); CO2, Blood 30 mmol/L (21-32); Chloride, Blood 102 mmol/L (98-108); Creatinine, Blood 0.88 mg/dL (0.60-1.20); Globulin, Blood 4.1 g/dL (2.2-4.0); Glomerular Filtration Rate >60 (60-); Glucose, Blood 161 mg/dL (70-99); Magnesium, Blood 1.7 mg/dL (1.6-2.4); Phosphorus, Blood 2.9 mg/dL (2.5-4.9); Potassium, Blood 3.3 mmol/L (3.5-5.5); Sodium, Blood 137 mmol/L (136-145); Total Protein, Blood 5.8 g/dL (6.4-8.2); Vancomycin, Random 20.6 ug/mL
--- NOTE | 2020-09-06 06:33 | NUR ---
SHIFT SUMMARY PT REMAINS INTUBATED AND SEDATED c PRN FENTANYL. NO CHANGES IN PTS NEUROLOGICAL STATUS. AROUND MIDNIGHT PT SPIKED A TEMP OF 104, BECAME TACHYCARDIC AND APPEARED QUITE RESTLESS EVEN c PRN FENTANYL. ORDERS PLACED FOR PRECEDEX BUT PT BECAME HYPOTENSIVE SHORTLY AFTER INITIATING. PRECEDEX CURRENTLY ON STANDBY. FEVER TREATED c NEW ORDERS OF IBUPROFEN, TYLENOL AND ICE PACKS. TEMP CURRENTLY 98.6. CHEST TUBE REMAINS CLAMPED, LS CLEAR. CHEST TUBE DRESSING CHANGED. TF CONTINUES AT GOAL, NO VOMITING OR SIGNS OF ASPIRATION, NO BLUE DYE IN SUCTION TUBING. WHITE CATHETER DRAINING CLEAR, YELLOW URINE. RECTAL TUBE DRAINING BLUE/GREENISH LOOSE STOOL. NO OTHER SIGNIFICANT CHANGES, WILL CONTINUE TO MONITOR.
--- NOTE | 2020-09-06 08:31 | NUR ---
CARE OF PT ASSUMED AT 0700. PT ON MECH VENT W PRN SEDATION ONLY PRECEDEX AND PROPOFOL OFF. BP 67/43, LEVOPHED ORDERED. UNREAD CHEST XRAY REVIEWED; LEFT LOBE SIGNIFICANTLY DIFF COMPARED TO YESTERDAYS FILMS, POSSIBLE PNEUMO; ABSENT LUNG SOUNDS TO LLL, SATS STABLE. DR ALVA CALLED. CHEST TUBE PLACED BACK TO SX W ABOUT 50CC SEROUS OUTPUT, LEVOPHED STARTED AT 5MCG. DR FAULKNER IN TO SEE AT 0735, XRAY SHOWN TO DR FAULKNER. DR ALVA IN TO SEE PT 0800, FILMS REVIEWED; POSSIBLE INFILTRATES. CHEST TUBE CLAMPED BY DR ALVA. PT PLACED ON SPONT W PS 7/5. LEVOPHED DECREASED TO 2MCG. LASIX HELD PER DR ALVA. PT SLIGHTLY RESTLESS IN BED, OPENS EYES SPONT, DOES NOT FOLLOW ANY DIRECTIONS.
--- NOTE | 2020-09-06 10:17 | NUR ---
EKG COMPLETED TO EVALUATE PROLONGED QT, PT'S QT IS PROLONGED; DR ALVA NOTIFIED. 2GM MAG IV ORDERED. PT TOLERATING SBT WELL.
--- NOTE | 2020-09-06 11:40 | NUR ---
PT'S SATS DROPPED TO 80% ON SBT, FIO2 INCREASED TO 100%, DR ALVA AND RT NOTIFIED. PS INCREASED TO 14. PT'S SATS DROPPED AGAIN TO 85%, PT PLACED BACK TO PREVIOUS AC SETTINGS. CHEST TUBE TO BE PULLED TODAY PER DR ALVA.
--- NOTE | 2020-09-06 15:18 | NUR ---
CHEST TUBE DC'D BY DR ALVA AT 1500, PT TOLERATED WELL, REMAINS WIDE AWAKE, VERY STIFF, RESISTANT TO CARE, DOES NOT FOLLOW DIRECTIONS BUT DOES TRACK W EYES.
--- NOTE | 2020-09-06 18:27 | NUR ---
PT'S DAUGHTER WAS AT BEDSIDE FOR A SHORT VISIT; DAUGHTER GIVEN FULL UPDATE. PT ONLY REQUIRED LOW DOSE LEVOPHED FROM 0700 TO 1230. CHEST TUBE SITE DRSG REINFORCED. SATS REMAIN STABLE ON AC SETTINGS. PT TOLERATED SPONT FOR ONLY A COUPLE HOURS BEFORE DESATURATING. PT GIVEN NO ADDITIONAL SEDATION TODAY OTHER THAN MS FOR CHEST TUBE REMOVAL. PT REMAINS ENCEPHLAPATHIC, DOES NOT FOLLOW DIRECTIONS, WIDE AWAKE AND MILDLY RESTLESS T/O MOST OF SHIFT. TMAX 99.5 TOWARDS END OF SHIFT, OTHERWISE AFEBRILE.
--- NOTE | 2020-09-06 19:39 | NUR ---
SHIFT ASSESSMENT ASSUMED CARE OF PT @ 1900. REPORT RECEIVED FROM YOEL HARTMAN. PT LAYING IN BED, INTUBATED WITHOUT SEDATION. OPENS EYES SPONTANEOUSLY, NOT FOLLOWING ANY COMMANDS. VERY RESTLESS, MOVING HIMSELF DOWN IN THE BED, REACHING FOR LINES AND CORDS. PREVIOUS NURSE STATED HE HAS NOT BEEN THIS WAY DURING THE DAY. PT MEDICATED WITH 4MG PRN ATIVAN WHICH CALMED PT SLIGHTLY. WILL CONTINUE MONITOR SEDATION CLOSELY. TF INFUSING @ GOAL RATE c BLUE DYE ADDED TO RULE OUT ASPIRATION. WHITE CATH PATENT, DRAINING LIGHT YELLOW URINE. RECTAL TUBE IN PLACE DRAINING LOOSE, BLUE/GREEN STOOL. VSS AT THIS TIME, WILL CONTINUE TO MONITOR CLOSELY.
--- NOTE | 2020-09-06 22:58 | NUR ---
UPDATE PT TOLERATING PRECEDEX FOR A SHORT TIME BUT BECAME HYPOTENSIVE. PRECEDEX PLACED ON SB FOR APPROXIMATELY 45 MINUTES, PT REMAINS HYPOTENSIVE c A MAP ~55. LEVOPHED GTT INITIATED @ 4MCG/MIN. BP IMPROVED, LEVOPHED CURRENTLY @ 2MCG/MIN. WILL CONTINUE TO MONITOR CLOSELY.
[2020-09-07 04:37] LABS: BASOPHILS ABSOLUTE AUTO 0.08 K/mm3 (0.00-0.23); BASOPHILS PERCENT AUTO 1 % (0-2); EOSINOPHILS PERCENT AUTO 8 % (0-6); Hematocrit 24.1 % (37.0-53.0); Hemoglobin 7.8 g/dL (13.5-17.5); Mean Corpuscular HGB 35.1 pg (26.0-34.0); Mean Corpuscular HGB Conc 32.4 g/dL (31.5-36.5); Mean Corpuscular Volume 109 fL (80-100); Mean Platelet Volume 10.5 fL (9.1-12.4); Platelet Count 419 K/mm3 (150-400); RDW Coefficient Variation 13.2 % (11.7-14.2); Red Blood Cell Count 2.22 M/mm3 (4.30-5.90); White Blood Cell Count 11.91 K/mm3 (4.00-11.30)
[2020-09-07 04:38] LABS: IMMATURE GRAN ABSOLUTE AUTO 0.12 K/mm3 (0.00-0.10); IMMATURE GRAN PERCENT AUTO 1 % (0-1); LYMPHOCYTES ABSOLUTE AUTO 1.47 K/mm3 (0.84-5.20); LYMPHOCYTES PERCENT AUTO 12 % (21-46); MONOCYTES ABSOLUTE AUTO 0.59 K/mm3 (0.16-1.47); MONOCYTES PERCENT AUTO 5 % (4-13); NEUTROPHILS ABSOLUTE AUTO 8.75 K/mm3 (1.96-9.15); NEUTROPHILS PERCENT AUTO 73 % (41-73)
[2020-09-07 04:52] LABS: Albumin, Blood 1.6 g/dL (3.4-5.0); Anion Gap 4 mmol/L (6-16); Blood Urea Nitrogen 23 mg/dL (8-24); Bun/Creatinine Ratio 26.7 (12.0-20.0); CO2, Blood 32 mmol/L (21-32); Calcium, Blood 8.4 mg/dL (8.5-10.1); Chloride, Blood 102 mmol/L (98-108); Creatinine, Blood 0.86 mg/dL (0.60-1.20); Glomerular Filtration Rate >60 (60-); Glucose, Blood 167 mg/dL (70-99); Magnesium, Blood 2.1 mg/dL (1.6-2.4); Phosphorus, Blood 2.7 mg/dL (2.5-4.9); Potassium, Blood 3.2 mmol/L (3.5-5.5); Sodium, Blood 138 mmol/L (136-145)
--- NOTE | 2020-09-07 06:15 | NUR ---
SHIFT SUMMARY PT REMAINS INTUBATED, SEDATED c PRN ATIVAN. ATTEMPTED PRECEDEX TO ASSIST SEDATION BUT PT BECAME HYPOTENSIVE AND LEVOPHED WAS TEMPORARILY INITIATED. PT CURRENTLY DOING WELL c LEVOPHED AND PRECEEX ON STANDBY. PT STILL UNABLE TO FOLLOW COMMANDS, OPENS EYES SPONTANEOUSLY. LS REMAIN DIMINISHED IN LEFT LOWER LOBE. TF CONTINUES AT GOAL. TEMP WHITE CATH DRAINING CLEAR, LIGHT YELLOW URINE. RECTAL TUBE LEAKING DURING NIGHT, REPOSITIONED, CURRENTLY DRAINING LOOSE, GREENISH BLUE STOOL. KCL INFUSING AT THIS TIME. NO OTHER SIGNIFICANT CHANGES.
--- NOTE | 2020-09-07 07:47 | NUR ---
ASSUMED CARE RECEIVED REPORT FROM YOEL SWARTZ. PT IS AWAKE IN ROOM, MOVING ALL LIMBS, LOOKING AROUND ROOM, RASS OF +1. HE IS INTUBATED ON [facility] VENTILATION AC 14/550/5/30%, SPO2 94%. PT IN SINUS TO SINUS TACH, 90-110; BP STABLE CURRENTLY - MAP > 65. KCL 20 MEQ IV PB INFUSING, ALONG WITH NS TKO X 2. HE HAS A PATENT WHITE, DRAINING YELLOW URINE, AND A RECTAL TUBE THAT IS DRAINING GREEN LIQUID STOOL. TF IS PIVOT 1.5 INFUSING AT 45 ML/HR, GOAL, AND IS BLUE/GREEN IN COLOR FROM BLUE DYE THAT WAS MIXED IN IT EARLIER. BED LOW AND LOCKED. SWB RESTRAINTS SECURED TO PT AND BED.
--- NOTE | 2020-09-07 11:03 | NUR ---
UPDATE OF 899 PT HAS BEEN ON SPONTANEOUS MODE WITH PS OF 10/5, AND 35% FIO2. TOLERATING IT WELL, THOUGH HIS RATE IS 28-33 FOR MAJORITY OF TIME, AND HE CONTINUES TO HAVE A LARGE AMOUNT OF THICK SECRETIONS, HE INTERMITTENTLY WILL COUGH ON COMMAND, AND IT WILL USUALLY YIELD THE LARGE AMOUNT OF SECRETIONS, OTHERWISE, IT CAN BE DIFFICULT AT TIMES TO SUCTION (WHEN HE TRIES NOT TO COUGH) - DESPITE HIS COARSE LUNG SOUNDS, AND ELEVATED PEAK PRESSURES (OCCASIONALLY). NIDA HAS SEEN PATIENT, AND HAS APPROVED USE OF LOW DOSE PRECEDEX NOT TO FULLY SEDATE, BUT TO "KEEP THE EDGE OFF" AND KEEP AWAKE. HE ALSO MENTIONED THAT LEVOPHED AT A LOW DOSE WOULD BE OKAY IF IT MEANT KEEPING THE PT COMFORTABLE DURING THE SPONTANEOUS PS TRIAL. CURRENTLY PRECEDEX IS INFUSING AT 0.2 MCG/KG/HR, AND LEVOPHED IS NOT NEEDED TO BE TURNED ON AT THE CURRENT MOMENT, MAP > 65. WILL CONTINUE TO MONITOR.
--- NOTE | 2020-09-07 12:00 | NUR ---
Medical Proxy CONFIRMED to be haroon, Justine Sales [phone], per our policy and consult with ethics team. Please see chart note from Inocencio Serrano. This was communicated to TERMITE CONTROL SERVICE REPRESENTATIVE and lockstitch lining setter. Haroon expected in today and to get update on pt's status from 'tessa for further discussion of ongoing plan of care.
--- NOTE | 2020-09-07 13:10 | NUR ---
UPDATE OF 1230 - PT's VENT SETTINGS ARE BACK ON ASSIST CONTROL 14/550/5/30%. TOWARDS THE LAST PORTION OF TIME HE WAS ON SPONTANEOUS PS, THE TIDAL VOLUMES WERE DIPPING INTO THE 250-299 RANGE, AND A RESULT WAS HAVING DECREASED MINUTE VENTILATION. WITH THE START OF PRECEDEX, THE PT HAS FINALLY BEEN ABLE TO RELAX, REST, AND EVEN SLEEP. RASS HAS BEEN -1. NO LEVOPHED NEEDED FOR BP MANAGEMENT. HE WAS TAKING OF SPONTANEOUS PS FOR A BREAK, HE WAS APPEARING TO BE TUCKERED OUT. SPO2 CURRRENTLY 93%, RR 14-24 (WHEN AWAKE AND RESTLESS IT JUMPS UP INTO THE 30s). WILL CONTINUE TO MONITOR.
[2020-09-07 15:23] LABS: Vancomycin, Random 10.8 ug/mL
--- NOTE | 2020-09-07 18:25 | NUR ---
UPDATE - END OF SHIFT CHANGES NEURO- SEE 1640 NEURO REASSESSMENT, PT NOT FOLLOWING COMMANDS, AND IS INTERMITTENTLY AWAKE, ALERT, MAKING EYE CONTACT AND TRACKING. HAVING MUCH DIFFICULTY TRYING TO COMMUNICATE, NO LONGER NODDING HEAD "YES" OR SHAKING HEAD "NO" - POSSIBLY FROM PRECEDEX GTTP, AND ATIVAN IVP EARLIER. WITH NOXIOUS STIMULI, OR HANDS-ON CARE PT WILL BECOME QUITE AGITATED, TENSING UP, BECOMING VERY RIDGID AND FIGHTING AGAINST CARE. WHEN NOT BEING STIMULATED PT WILL EITHER BE CALM, MOVING AROUND OCCASIONALLY, OR OFTEN WILL BE ASLEEP/RESTING WITH RASS OF -1. CHEST TUBE PUNCTURE SITE- DURING A CLEAN UP OF THE PT AND A LINEN CHANGE, IT WAS NOTICED THE PT HAD FLUID ON HIS LEFT SIDE WHICH HAD SOAKED A PORTION OF HIS GOWN AND THE LINEN BENEATH THAT AREA. IT APPEARED TO BE COMING FROM THE PUNCTURE SITE (CURRENTLY HAS A DRESSING THAT APPEARS CLEAN AND INTACT, AND EVEN DRY FROM THE OUTSIDE). AFTER CLEANING UP AND CHANGING LINEN, PT HAS BEEN DRY SINCE. WILL REPORT TO ONCOMING NURSE. GTTPs- AFTER SOME TIME HAD PASSED AFTER THE SBT STARTED THIS AM, AND DISCUSSING WITH DR. ALVA - PRECEDEX WAS STARTED AT A LOW DOSE OF 0.2 MCG/KG/HR - TO HELP "TAKE THE EDGE OFF" SO PT COULD RELAX TO RASS OF 0 TO -1. PT WAS BECOMING QUITE RESTLESS EVEN WITHOUT NOXIOUS STIMULATION. EVENTUALLY LEVOPHED WAS STARTED AT (AND CURRENTLY IS) 2 MCG/MIN. PRECEDEX WAS INCREASED FOR A SHORT PERIOD OF TIME, BUT IS CURRENTLY IS 0.2 MCG/KG/HR. RESPIRATORY- VENT SETTINGS: AC 14/550/5/30%. SEE PREVIOUS NOTE FOR SPONTANEOUS BREATHING TRIAL EARLIER TODAY. PT TO BE ON ASSIST CONTROL THROUGHOUT THE NIGHT PER DR. ALVA. PT CONTINUES TO BE COARSE T/O LUNG ISBELL, BUT IS REQUIRING LESS SUCTION AT END OF SHIFT THAN EARLIER IN THE SHIFT. THICK, CHANDLER SECRETIONS - WITH NO EVIDENCE OF BLUE/GREEN TF IN SPUTUM. NO CHANGES TO TF, WHITE, RECTAL TUBE (CHANGED), NS TKO, OVERALL SKIN, RESTRAINTS. HR TRENDING DOWN FROM 100s, NOW IN 80s. BP STABLE, MAP >65, BRIEF PERIOD OF HYPOTENSION FROM PRECEDEX, AND RELIEVED BY LEVOPHED GTTP (DR. ALVA APPROVES OF THIS STRATEGY). BED LOW AND LOCKED.
--- NOTE | 2020-09-07 21:11 | NUR ---
ASSUMED CARE AT 1900 PT LAYING IN BED INTUABED WITH VENT SETTINGS AC 18, TV 550, PEEP 5, FIO2 30%; PLAN IS TO WEAN IN THE AM WHEN STATISTICIAN MATHEMATICAL IS ON THE UNIT; LARGE AMOUNT OF THICK YELLOW/CHANDLER SECREATIONS OUT OF ETT. PT IS REACTIVE TO VERBAL STIMULI AND ATTEMPTS TO FOLLOW DIRECTIONS OF MOVING EXTREMITIES AND SQUEEZING HANDS; HE DID NOT ANSWER YES/NO QUESTIONS BUT DOES TRY AND TALK AROUND ETT; DISCOMFORT NOTED WHEN DOING ROM TO BUE; MINIMAL MOVEMENT NOTED IN BLE; PRECEDEX INFUSING AT 0.2MCG/KG/HR; SEE FLOWSHEET FOR TITRATION. AFEBRILE. HR 70-100. SBP 100-130, MAP >65, LEVOPHED INFUSING AT 2MCG/MIN. SEE FLOWSHEET FOR TITRATION. PIVOT INFUSING VIA DOBHOFF AT 45ML/HR (GOAL) WITH 30ML WATER FLUSHES Q4HR; BLUE DYE HAS BEEN ADDED TO TF. RECTAL TUBE AND WHITE IN PLACE AND DRAINING TO GRAVITY. OLD CHEST TUBE PUNCTURE SITE DRESSING C/D/I. PICC LINE TO KELLY PATENT AND INFUSING. SEE SHIFT ASSESSMENT FOR FULL ASSESSMENT.
[2020-09-08 04:54] LABS: BASOPHILS ABSOLUTE AUTO 0.07 K/mm3 (0.00-0.23); BASOPHILS PERCENT AUTO 1 % (0-2); EOSINOPHILS PERCENT AUTO 8 % (0-6); Hematocrit 24.6 % (37.0-53.0); Hemoglobin 7.7 g/dL (13.5-17.5); IMMATURE GRAN ABSOLUTE AUTO 0.19 K/mm3 (0.00-0.10); IMMATURE GRAN PERCENT AUTO 2 % (0-1); LYMPHOCYTES ABSOLUTE AUTO 2.34 K/mm3 (0.84-5.20); LYMPHOCYTES PERCENT AUTO 23 % (21-46); MONOCYTES ABSOLUTE AUTO 0.81 K/mm3 (0.16-1.47); MONOCYTES PERCENT AUTO 8 % (4-13); Mean Corpuscular HGB 33.8 pg (26.0-34.0); Mean Corpuscular HGB Conc 31.3 g/dL (31.5-36.5); Mean Corpuscular Volume 108 fL (80-100); Mean Platelet Volume 10.3 fL (9.1-12.4); NEUTROPHILS ABSOLUTE AUTO 6.11 K/mm3 (1.96-9.15); NEUTROPHILS PERCENT AUTO 59 % (41-73); Platelet Count 534 K/mm3 (150-400); RDW Coefficient Variation 13.2 % (11.7-14.2); RDW Standard Deviation 52.8 fL (35.1-46.3); Red Blood Cell Count 2.28 M/mm3 (4.30-5.90); White Blood Cell Count 10.32 K/mm3 (4.00-11.30)
[2020-09-08 05:20] LABS: Alanine Aminotransfer (ALT/SGP 14 U/L (12-78); Albumin, Blood 1.9 g/dL (3.4-5.0); Albumin/Globulin Ratio 0.4 (0.8-1.8); Alk Phos 107 U/L (50-136); Anion Gap 5 mmol/L (6-16); Aspartate Aminotrans (AST/SGOT 19 U/L (12-37); Bilirubin, Direct 0.1 mg/dL (0.0-0.3); Bilirubin, Indirect 0.3 mg/dL (0.1-0.7); Bilirubin, Total 0.4 mg/dL (0.1-1.0); Blood Urea Nitrogen 27 mg/dL (8-24); Bun/Creatinine Ratio 30.6 (12.0-20.0); CO2, Blood 32 mmol/L (21-32); Calcium, Blood 8.9 mg/dL (8.5-10.1); Chloride, Blood 99 mmol/L (98-108); Creatinine, Blood 0.88 mg/dL (0.60-1.20); Globulin, Blood 4.8 g/dL (2.2-4.0); Glomerular Filtration Rate >60 (60-); Glucose, Blood 182 mg/dL (70-99); Magnesium, Blood 1.8 mg/dL (1.6-2.4); Phosphorus, Blood 2.3 mg/dL (2.5-4.9); Potassium, Blood 3.9 mmol/L (3.5-5.5); Sodium, Blood 136 mmol/L (136-145); Total Protein, Blood 6.7 g/dL (6.4-8.2)
--- NOTE | 2020-09-08 05:34 | NUR ---
UPDATE DR OWENS CALLED EARLIER TO HAVE HIM NOTIFIED WHEN AM LAB RESULTS WERE AVAILABLE. DR OWENS CALLED AT 0533 AND PROVIDED NEW ORDERS FOR SODIUM PHOSPHATE 10MM.
--- NOTE | 2020-09-08 06:32 | NUR ---
END OF SHIFT SUMMARY PT CONT TO BE INTUBATED WITH VENT SETTINGS AC 14, TV 550, PEEP 5, FIO2 30%; LARGE AMOUNT OF THICK SECREATIONS SUCTIONED FROM ETT. PT IS REACTIVE TO VERBAL STIMULI AND OCCATIONALLY NODS TO YES/NO QUESTIONS BUT FIRST WILL TRY TO VERBALLY ANSWER QUESTIONS. ATIVAN GIVEN TWICE FOR RESTLESSNESS, THE SECOND TIME PT HAD ONE LEG HANGING OFF THE BED AND THE OTHER MOVING CLOSER TO THE SAME; PT PULLS AT RESTRAINTS AT TIMES TOO. PRECEDEX INFUSING AT 0.2MCG/KG/HR. AFEBRILE. HR 70-105. SBP 100-130, MAP >65; LEVOPHED INFUSING AT 3MCG/MIN. PIVOT INFUSING VIA DOBHOFF AT 45ML/HR (GOAL) WITH 30ML WATER FLUSHES; BLUE DYE STILL IN TF. RECTAL TUBE AND WHITE PATENT AND DRAINING TO GRAVITY. PICC LINE TO KELLY PATENT AND DRAWS. WILL REPORT TO AM RN WHEN AVAILABLE.
--- NOTE | 2020-09-08 09:15 | NUR ---
UPDATE PT IS AGITATED WITH ANY CARE (REPOSITIONING, ORAL CARE, OR ANYTHING HANDS ON) REQUIRING 1 MG OF ATIVAN, AND AN INCREASE IN PRECEDEX T 0.4 MCG/KG/HR. LEVOPHED WAS LEFT ON 3 MCG/MIN TO SEE HOW HE WOULD TOLERATE THE INCREASE IN PRECEDEX BUT HE HAS BEEN MAINTAINING HIS BP WELL, MAP > 65. LEVOPHED DOWN TO 2 MCG/MIN. WILL CONTINUE TO ASSESS. WHEN NOT STIMULATED PT IS AT RASS OF -1, BUT QUICKLY CAN INCREASE TO +1. HE HAS NOT BEEN FOLLOWING COMMANDS, AND CONTINUES TO TRY AND SPEAK THROUGH HIS ETT, UNSURE IF HE UNDERSTANDS THAT THE TEAM IS HAVING DIFFICULTY UNDERSTANDING HIM, OR IF HES JUST FRUSTRATED/IRRITABLE AND DOING IT ANYWAY, WILL CONTINUE TO MONITOR. VSS. BED LOW AND LOCKED. SWB RESTRAINTS SECURED TO PT AND BED.
--- NOTE | 2020-09-08 13:56 | NUR ---
UPDATE PT HAS BEEN TOLERATING SPONTANEOUS MODE, PS 10/5, 30% FIO2 WELL SINCE 1020 THIS AM, THOUGH IS TACHYPNEIC WHEN AWAKE/STIMULATED. CONTINUES TO HAVE SECRETIONS, BUT LESS THAN THIS MORNING. PRECEDEX IS CURRENTLY AT 0.2 MCG/KG/HR, AND LEVOPHED IS ON STANDBY. MAP HAS BEEN MAINTAINED > 65. HR 70-90s DEPENDING ON IF BEING STIMULATED OR RESTING. LASIX DISCONTINUED, DR. OWENS CAME IN EARLIER AND STATED HE BELIEVED PT IS MORE EUVOLEMIC NOW. PT CONTINUES TO HAVE ADEQATE URINE OUTPUT FROM WHITE, AND LIQUID GREEN STOOL IN RECTAL TUBE. NO ACUTE CHANGES IN PT CONDITION.
--- NOTE | 2020-09-08 16:30 | NUR ---
UPDATE PT REQUIRED LEVOPHED TO BE TURNED ON WHILE HE WAS ASLEEP/SEDATED, PRECEDEX WAS TURNED DOWN TO 0.2 MCG/KG/HR, AND LEVO AT 2 MCG/MIN. MAP THEN > 65. THE LAST 1-1.5 HOURS PT HAS BEEN RASS OF -1 TO -2. PRIOR TO TO THIS, WHEN THE PT's GIRLFRIEND CAME TO THE BEDSIDE THIS AFTERNOON, HE WAS AWAKE, AND WAS NODDING HIS HEAD "YES" AND SHAKING HIS HEAD "NO" TO QUESTIONS FROM HER. IT WAS ASSUMED BEFORE HER ARRIVAL THAT THE PT WAS NOT FOLLOWING COMMANDS, AND WAS RESPONDING LESS MEANINGFULLY TO THE HEALTHCARE STAFF, WELL BEING MORE AGITATED TOWARDS THE STAFF. NOT RESPONDING TO COMMANDS, OR ANSWERING QUESTIONS MAY JUST BE BECAUSE THE PT IS FRUSTRATED WITH HIS CONDITION AND THE INTERVENTIONS AND TREATMENTS THE TEAM IS PERFORMING ON HIM. BUT IT IS UNKNOWN AT THIS POINT, WILL CONTINUE TO MONITOR.
--- NOTE | 2020-09-08 19:09 | NUR ---
END OF SHIFT - PT BACK IN BED, VIA CEILING LIFT, PT AWAKE AND AGITATED. LEVOPHED HAS BEEN ON STANDBY, AND PRECEDEX IS AT 0.4 MCG/KG/HR. HE TENDS TO RELAX AND HIT RASS OF 0 TO -1 WHEN LEFT ALONE. WHEN HIS SISTER WAS VISITING THE PT STARTED TO NOD YES AND SHAKE HEAD NO TO SOME OF HER QUESTIONS. HE BECOMES FRUSTRATED WITH CARE FROM HEALTHCARE STAFF. DAUGHTER, REINA, UPDATED TODAY. PT REMAINS ON SPONTANEOUS MODE, PS 10/5, 30%. DR. ALVA WOULD LIKE TO SEE HIM SUCCEED ON PS 5/5 PRIOR TO CONSIDERING EXTUBATION. HE ALSO INSTRUCTED THAT IF THE PT BECAME SHORT OF BREATH, OR SHOWING SIGNS OF BEING TIRED TO SWITCH HIM BACK TO ASSIST CONTROL FOR THE NIGHT (CONTINUE WITH PREVIOUS SETTINGS). BED LOW AND LOCKED.
--- NOTE | 2020-09-08 20:52 | NUR ---
ASSUMED CARE AT 1900 PT LAYING IN BED INTUBATED WITH VENT SETTINGS SPONT 10/5, FIO2 30%, TV 350-450, SPO2 >95%. SMALL TO MODERATE AMOUNT OF THICK WITHE CHANDLER SECREATIONS. PT IS REACTIVE TO VERBAL STIMULI AND OCCATIONALLY FOLLOWS DIRECTIONS; PT SELECTIVLY ANSWERS YES/NO QUESTIONS WITH HEAD NODS AND ALSO TRIED TO TALK; PT VERY RESISTIVE TO CARE INCLUDING ORAL CARE, BED BATH, REPOSITIONING AND SHAKES HIS HEAD NO WHEN ASKED IF IN ANY PAIN; PT MOVES BLE FREELY AND TRIES TO REACH FOR THE TT; BILATERAL SOFT WRIST RESTRAINTS IN PLACE. PRECEDEX INFUSING AT 0.4MCG/KG/HR. AFEBRILE. HR 80'S. SBP 100-130, LEVOPHED INFUSING AT 2MCG/MIN, SEE FLOWSHEET FOR TITRATION. PIVOT INFUSING VIA DOBHOFF AT 45ML/HR (GOAL) WITH 30ML WATER FLUSHES Q4HR; BLUE DYE CURRENTLY IN THIS BOTTLE OF TF; PLAN TO NOT PUT BLUE DYE IN NEXT BOTTLE OF TF. RECTAL TUBE AND WHITE PATENT AND DRAINING TO GRAVITY. SEE SHIFT ASSESSMENT FOR FULL ASSESSMENT.
[2020-09-09 04:02] LABS: BASOPHILS ABSOLUTE AUTO 0.06 K/mm3 (0.00-0.23); BASOPHILS PERCENT AUTO 1 % (0-2); EOSINOPHILS ABSOLUTE AUTO 0.66 K/mm3 (0.00-0.68); EOSINOPHILS PERCENT AUTO 9 % (0-6); Hematocrit 27.1 % (37.0-53.0); Hemoglobin 8.6 g/dL (13.5-17.5); Mean Corpuscular HGB 34.3 pg (26.0-34.0); Mean Corpuscular HGB Conc 31.7 g/dL (31.5-36.5); Mean Corpuscular Volume 108 fL (80-100); Mean Platelet Volume 10.2 fL (9.1-12.4); Platelet Count 456 K/mm3 (150-400); RDW Coefficient Variation 12.8 % (11.7-14.2); RDW Standard Deviation 50.5 fL (35.1-46.3); Red Blood Cell Count 2.51 M/mm3 (4.30-5.90); White Blood Cell Count 7.63 K/mm3 (4.00-11.30)
[2020-09-09 04:04] LABS: IMMATURE GRAN ABSOLUTE AUTO 0.12 K/mm3 (0.00-0.10); IMMATURE GRAN PERCENT AUTO 2 % (0-1); LYMPHOCYTES ABSOLUTE AUTO 2.19 K/mm3 (0.84-5.20); LYMPHOCYTES PERCENT AUTO 29 % (21-46); MONOCYTES ABSOLUTE AUTO 0.64 K/mm3 (0.16-1.47); MONOCYTES PERCENT AUTO 8 % (4-13); NEUTROPHILS ABSOLUTE AUTO 3.96 K/mm3 (1.96-9.15); NEUTROPHILS PERCENT AUTO 52 % (41-73)
[2020-09-09 04:19] LABS: Albumin, Blood 1.9 g/dL (3.4-5.0); Anion Gap 3 mmol/L (6-16); Blood Urea Nitrogen 26 mg/dL (8-24); Bun/Creatinine Ratio 31.3 (12.0-20.0); CO2, Blood 33 mmol/L (21-32); Chloride, Blood 103 mmol/L (98-108); Creatinine, Blood 0.83 mg/dL (0.60-1.20); Glomerular Filtration Rate >60 (60-); Glucose, Blood 204 mg/dL (70-99); Phosphorus, Blood 4.4 mg/dL (2.5-4.9); Potassium, Blood 3.8 mmol/L (3.5-5.5); Sodium, Blood 139 mmol/L (136-145)
--- NOTE | 2020-09-09 06:01 | NUR ---
END OF SHIFT SUMMARY PT CONT TO BE INTUBATED WITH VENT SETTINGS SPONT 10/5, FIO2 30%, TV 350-450, SPO2 >96% ALL NIGHT; SMALL AMOUNT OF SECREATIONS FROM ETT THIS SHIFT. PT IS REACTIVE TO VERBAL STIMULI AND OCCATIONALLY ANSWERS QUESTIONS WITH A HEAD NOD; PT WAS TRYING TO POINT AT SOMETHING AND RN TRIED SEVERAL DIFFERENT WAYS OF COMMUNICATING WITH PT AND PT SEEMED TO NOT WANT TO ENGAGE BUT WAS TRYING TO TALK; PT BECAME MORE IRRITATED AND MOVING BLE ALMOST OFF THE BED AND TRYING TO REACH FOR ETT, ATIVAN GIVEN X2 AND HELPFUL. PRECEDEX INFUSING AT 0.3MCG/KG/HR, SEE FLOWSHEET FOR TITRATION. HR 60-100, SBP 100-130, MAP >65, LEVOPHED INFUSING AT 1MCG/MIN, SEE FLOWSHEET FOR TITRATION. PIVOT INFUSING VIA DOBHOFF AT 45ML/HR (GOAL) WITH 30ML WATER FLUSHES Q4HR. RECTAL TUBE AND WHITE PATENT AND DRAINING TO GRAVITY. PT TO KELLY PATENT AND DRAWS. WILL REPORT TO AM RN WHEN AVAILABLE.
--- NOTE | 2020-09-09 07:08 | NUR ---
ASSUMED CARE RECEIVED REPORT FROM YOEL HANSEN. PT IS SEDATED ON PRECEDEX AT 0.3 MCG/KG/HOUR, CURRENT RASS OF -1 AND CPOT OF 0. HE REMAINS ON SPONTANEOUS, PRESSURE SUPPORT 10/5, 30% FIO2, ON THE VENTILATOR. SPO2 97%, RR 14-24 AT REST, PEAK PRESSURES < 25 ON AVERAGE. BP WNL, MAP > 65. LEVOPHED INFUSING AT 1 MCG/MIN. HE IS IN SINUS RHYTHM RATE IN THE 70-80s. WHITE - CORE TEMP IS READING 96.4, PER NOC RN REPORT PT's TEMP WAS LOWER IN THE 95.0-95.9 F RANGE. HIS SKIN IS WARM TO TOUCH. PT HAS WARM BLANKETS ON AND THERMASTAT HAS BEEN TURNED UP. WILL CONTINUE TO MONITOR. BED LOW AND LOCKED.
--- NOTE | 2020-09-09 10:47 | NUR ---
UPDATE AT 1015 RESP THERAPY DECREASED THE PS TO 5/5, WITH 30% FIO2. PT TOLERATING IT WELL, ASIDE FROM INCREASED RR WHEN STIMULATED. PT IS VERY AGITATED WHEN REPOSITIONED, OR WITH ANY HANDS ON CARE OR NOXIOUS STIMULI. PRECEDEX HAS BEEN INCREAED TO 0.4 MCG/KG/MIN. AND LEVOPHED HAS BEEN PUT ON STANDBY FOR TIME BEING - MAPs HAVE BEEN STABLE > 65 T/O MORNING. WILL CONTINUE TO MONITOR. POTENTIAL EXTUBATION TODAY.
--- NOTE | 2020-09-09 16:32 | NUR ---
UPDATE - EXTUBATION, DELERIUM, RESP STATUS 1200 - EXTUBATION, TO 8L HIGH FLOW NC WITH HUMIDITY. SPO2 HAS BEEN MAINTAINED > 94%, INITIALLY PT HAS HAD A VERY WEAK COUGH, AND WAS NOT WANTING TO LET US SUCTION WITH THE YANKAUR. HE SPOKE VERY QUIETLY, AND HAD A RASP IN HIS WHISPER. DIFFICULT TO UNDERSTAND. PT WAS NOT PULLING ON TUBES, AND WAS COOPERATIVE - SO RESTRAINTS WERE REMOVED. HE IS CURRENTLY DOWN TO 2L NC WITH HUMIDITY AND CONTINUES TO MAINTAIN SPO2 > 94%. VSS, MAP > 65. THE DAY WENT ON - HIS COUGH BECAME STRONGER (BUT HE KEEPS SWALLOWING THE SPUTUM, DESPITE HAVING SUCTION AVAILABLE) AND HE HAS BEEN CLEARING SECRETIONS FAIRLY WELL. HE IS CONFUSED, POSSIBLY A CASE OF ICU DELERIUM. VISUAL HALLUCINATIONS, POSSIBLE DELUSIONS. POOR ATTENTION SPAN, NOT ABLE TO CONCENTRATE ON WHATS BEING SAID TO HIM. POOR SHORT TERM MEMORY. AND HE IS ORIENTED TO SELF AND POSSIBLY FAMILY (DAUGHTER AT BEDSIDE, HE APPEARS TO RECOGNIZE HER, BUT ITS HARD TO TELL FOR CERTAIN). VAST RANGE OF EMOTIONS (INTERMITTENTLY - CRYING, COMICAL/LAUGHING/JOKING, AND IRRITABLE/PARANOID/AGITATED). PT IS WEAK, BUT HAS BEEN MOVING ALL FOUR EXTREMITIES, GROSS MOVEMENT IN FEET/LEGS ONLY, BUT SOMEWHAT FINE MOTOR SKILLS SINCE IN HIS HANDS/UPPER EXTREMITIES. HIS DEPTH PERCEPTION APPEARS TO BE A LITTLE OFF, HE STRUGGLES TO TOUCH HIS INDEX FINGERS TOGETHER IN FRONT OF HIM, BUT HE CAN DO IT AFTER A FEW SECONDS. PT REMAINS RESISTANT TO ORAL CARE, AND ANY OTHER HANDS ON CARE, BUT NOT QUITE AGITATED BEFORE WHEN HE WAS INTUBATED. BRIEF MOMENTS OF MORE MILD TO MODERATE AGITATION OF COURSE (SEE ABOVE). HE TOLERATES TURNS FINE, THOUGH. AN EFFORT TO DECREASE STIMULI HAS BEEN MADE - DOOR JUST SLIGHTLY OPEN (TO BLOCK MOST SOUNDS COMING FROM OTHER ROOMS, WHILE KEEPING IT OPEN JUST ENOUGH TO HEAR HIS BED ALARM), LIGHTS LOW IN THE ROOM, ALARMS TURNED DOWN (BUT STILL ABLE TO HEAR OUTSIDE OF ROOM, AND DAUGHTER AT BEDSIDE ONLY FOR MAJORITY OF TIME THIS AFTERNOON). CLUSTERING CARE.
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
--- NOTE | 2020-09-09 18:00 | NUR ---
UPDATE ON SOCIAL DYN 1754 ON 09/09/20 YOEL LLAMAS HAS CALLED LEYDI CARLISLE (PT's COUSIN/FRIEND) AND INFORMED HIM OF THE DECISION MADE BY THE PTs DECISION MAKER. HE STATED HE UNDERSTOOD AND WOULD INFORM SANDRINE (THE PT's GIRLFRIEND). NO ISSUES. WILL PASS THIS ON TO ONCOMING NURSE.
--- NOTE | 2020-09-09 18:26 | NUR ---
UPDATE PT HAVING AN EPISODE OF ACUTE AGITATION, DURING THIS TIME HE WAS NONVERBAL, TACHYCARDIC, RTAE 130s, SPO2 88%, HE WAS TRYING TO PULL ON TUBES, CHORDS, AND LINES DESPITE BEING TOLD NOT TO. HE STARTED TO THRASH IN THE BED, AND HE WAS UNABLE TO COMMUNICATE HIS NEEDS OR ISSUES. ATIVAN GIVEN AND PRECEDEX INCREASED TO 1.0 MCG/KG/HR, PT REQUIRED SWB RESTRAINTS AT 1730. PT CURRENTLY RASS OF -2. PRECEDEX TURNED BACK DOWN TO 0.7 MCG/KG/HR. BED LOW AND LOCKED. DAUGHTER HAS LEFT BEDSIDE.
--- NOTE | 2020-09-09 21:16 | NUR ---
ASSUMED CARE AT 1900 PT LAYING IN BED VERY SOMNULENT AND RESPONSIVE TO PAINFUL STIMULI DURING ASSESSMENT. PT NOW IS MORE AWAKE AND RESPONSIVE TO VERBAL STIMULI BUT SPEECH IS GARBLED AND WEAK. PT DOES PULL AT RESTRAINTS AND REACHES FOR DOBHOFF OR NC; PRECEDEX INFUSING AT 0.7MCG/KG/HR. SPO2 >95% ON 4L HIGH FLOW NC; OCCATIONAL WET SNORE HEARD BUT PT IS ABLE TO COUGH AND CLEAR SECREATION. AFEBRILE. HR 80-90'S. SBP 100-130, MAP >65, LEVOPHED ON SB. PIVOT INFUSING VIA DOBHOFF AT 45ML/HR (GOAL) WITH 30ML WATER FLUSHES Q4HR. RECTAL TUBE AND WHITE PATENT AND DRAINING TO GRAVITY. PICC TO KELLY PATENT AND DRAWS. SEE SHIFT ASSESSMENT FOR FULL ASSESSMENT.
--- NOTE | 2020-09-09 22:30 | NUR ---
HYPOTENSTION PT SBP 70'S WITH MAPS <65 AFTER CHANGING BP CUFFS AND DECREASING PRECEDEX. DR ALVA CALLED AND NOTIFIED, NEW ORDERS PROVIDED TO RESTART LEVOPHED AND ALSO GIVE 1L BOLUS OF LR.
[2020-09-10 03:46] LABS: BASOPHILS ABSOLUTE AUTO 0.08 K/mm3 (0.00-0.23); BASOPHILS PERCENT AUTO 1 % (0-2); EOSINOPHILS PERCENT AUTO 7 % (0-6); Hematocrit 26.5 % (37.0-53.0); Hemoglobin 8.5 g/dL (13.5-17.5); Mean Corpuscular HGB 33.9 pg (26.0-34.0); Mean Corpuscular HGB Conc 32.1 g/dL (31.5-36.5); Mean Corpuscular Volume 106 fL (80-100); Mean Platelet Volume 10.1 fL (9.1-12.4); Platelet Count 477 K/mm3 (150-400); RDW Coefficient Variation 12.8 % (11.7-14.2); Red Blood Cell Count 2.51 M/mm3 (4.30-5.90); White Blood Cell Count 8.82 K/mm3 (4.00-11.30)
[2020-09-10 03:49] LABS: IMMATURE GRAN ABSOLUTE AUTO 0.11 K/mm3 (0.00-0.10); IMMATURE GRAN PERCENT AUTO 1 % (0-1); LYMPHOCYTES ABSOLUTE AUTO 2.79 K/mm3 (0.84-5.20); LYMPHOCYTES PERCENT AUTO 32 % (21-46); MONOCYTES ABSOLUTE AUTO 0.75 K/mm3 (0.16-1.47); MONOCYTES PERCENT AUTO 9 % (4-13); NEUTROPHILS ABSOLUTE AUTO 4.49 K/mm3 (1.96-9.15); NEUTROPHILS PERCENT AUTO 51 % (41-73)
[2020-09-10 04:13] LABS: Anion Gap 4 mmol/L (6-16); Blood Urea Nitrogen 27 mg/dL (8-24); Bun/Creatinine Ratio 33.9 (12.0-20.0); CO2, Blood 33 mmol/L (21-32); Calcium, Blood 9.3 mg/dL (8.5-10.1); Chloride, Blood 102 mmol/L (98-108); Glomerular Filtration Rate >60 (60-); Glucose, Blood 172 mg/dL (70-99); Magnesium, Blood 1.9 mg/dL (1.6-2.4); Phosphorus, Blood 3.1 mg/dL (2.5-4.9); Potassium, Blood 3.7 mmol/L (3.5-5.5); Sodium, Blood 139 mmol/L (136-145)
--- NOTE | 2020-09-10 07:27 | NUR ---
END OF SHIFT SUMMARY PT ONLY SLEPT FOR A FEW HOURS T/O THE NIGHT, PT IS CONFUSED BUT DOES KNOW HIS NAME AND BIRTHDAY; VISUAL HALLUCINATIONS NOTED; PT CAN BE IRRITABLE AND VERY RESISTIVE TO CARE AT TIMES INCLUDING ORAL CARE, CATH CARE, AND REPOSITIONING; PT VOICE IS WEAK AND RASPY. AFEBRILE. SPO2 >95% ON 3L HIGH FLOW NC. HR 80-100. SBP 100-130, MAP >65; LEVOPHED ON FOR A SHORT AMOUNT OF TIME AND THAN PLACED ON SB AND HAS BEEN ON SB SINCE. PIVOT INFUSING AT 45ML/HR (GOAL) WITH 30ML WATER FLUSHES Q4HR. RECTAL TUBE AND WHITE IN PLACE AND DRAINING TO GRAVITY. PICC TO KELLY PATENT AND DRAWING. PRECEDEX INFUSING AT 0.6MCG/KG/HR. REPORT GIVEN TO DANIEL DIALLO.
--- NOTE | 2020-09-10 07:49 | NUR ---
Care Assumed 0700 Pt on Precedex 0.6 mcg/kg/hr. Saying words while looking at marcus/windows. Tracking staff while in room but unable to follow directions/hold conversation at this alberto, laughing occasionally. Pt on 2 l via HFNC, SPO2 > 92%. NSR, HR 101. BP STABLE (139/77). SWB in place. Patient pulling at lines/tubes occasionally. Will continue to monitor.
--- NOTE | 2020-09-10 09:30 | NUR ---
Provider Visit Dr. Lester at bedside. No new orders recieved.
--- NOTE | 2020-09-10 11:32 | NUR ---
Voice mail left for Justine warner, at [phone], requesting she return call or let me know when she will be available to speak with in person. Will await her return call and I will ask RN to page me if alana arrives to visit.
--- NOTE | 2020-09-10 12:00 | NUR ---
Provider Visit Dr. Magdaleno at bedside to see patient. Would like to start CIWA protocol.
--- NOTE | 2020-09-10 15:12 | NUR ---
Phone conversation and then in person conference with pt's Haroon, Justine re: code status in regard to intubation. In depth conversation with Justine, regarding pt's debility, weakness and lack of reserve may make extubation very difficult a second time if pt's respiratory status were to decline again. Justine is working with pt's RN on completing a new pt application for [facility] PCP coverage. Pt is not coherent or oriented enough to sign paperwork and know what he is signing as requested by [facility]. Advised haroon to let EFM know that she is his medical decision maker as determined by [place] law and our policy and confirmed per Ethics chair. Daughter's questions answered re: medical hx, current medical concerns. Pt expressed difficulty with decision making. Therapeutic listening and support offered. Discussed self care and thanked her and her sister for advocating for their dad. Justine's sister, pt's step-haroon, is arriving from [place] later today and Justine would like me to meet with her sister also. RN will page me when second haroon arrives. I tried to alleviate some of the burden Justine is feeling with her dad's medical care and encouraged enjoying any time and moments of clarity they may share at this time. We discussed goals of PT/OT and unknown ability of pt to participate with therapy currently.
--- NOTE | 2020-09-10 17:03 | NUR ---
Second visit to meet with pt's younger alana, Raina at the bedside. Current status and concerns for future care decisions discussed. Justine is the medical surrogate decision maker and she has asked that I meet with Raina also, once she arrives from [place]. Raina and Justine have both expressed that pt's quality of life and self care has been very poor for some time. Raina has been in contact by phone with her dad but states because of his drinking she was not visiting as often as he would have liked. Daughters express that they are hopeful for continued improvement and more time with their dad. They state they do not plan on him returning to his home but are uncertain where he would live. Pt is currently still requiring soft wrist restraints due to delerium and pulling at tubes and lines. He was pulling against restraints and restless for much of my visit this afteernoon. He was not able to communicate clearly during my two visits today but smiles at times and tried to speak to me and his daughters. Gently explored the possibilty that pt may not return to his prior level of cognition/mentation. They both want to cont treatment goals as is currently. They will take some time to talk together to discuss his code status in regard to reintubation. We discussed his weakness, debility and lack of reserve/underlying COPD as concerns for reintubation. I will await further direction from Justine and remain available. Plan to revisit tomorrow.
--- NOTE | 2020-09-10 17:09 | NUR ---
Update- Family/Palliative Care Daughter, Taryn, at bedside spoke with Fannie, from palliative care about possibly making patient DNR. Daughter to discuss this with her sister, Justine. Palliative care nurse came from pt room stating pt is very anxious. Upon assessing pt, pt having hallucinations on/off. Daughter states father became agitated and anxious when, "Fannie and I started speaking louder." Pulling at lines/cords/ attempting to pull out PICC line. Treated per emar with Ativan. Precedex GTT 0.4 mcg/kg/hr. HFNC at 2 L, SPO2 > 95%. Pt able to follow some directions but unable to state location or event or hold a conversation. Continues to talk to himself or has visual/auditory hallucinations.
--- NOTE | 2020-09-10 18:10 | NUR ---
Family at bedside - Would like intubation, no CPR Both daughters in the room with patient and asked Precedex to remain off, if possible. Patient is able to answer yes/no questions and follow directions. Pt able to states one worded answers, "cold" warm blankets provided, pt states, "good". Asking for "coffee" explained being NPO. Pt does not nod or respond to this. Both daughters decided to keep current code status. "Do not want CPR but would like intubation." Not ready to change pt status to comfort care. Explained that code status can be changed at any time. All questions answered.
--- NOTE | 2020-09-10 18:30 | NUR ---
Shift Summary Precedex on SB at 1714. T/O shift patient having visual/auditory hallucination. Speaking to marcus, pointing, laughing, and talking to "Carey/Gucci" or others. Unable to follow directions t/o majority of shift except around 1700 when Taryn, daughter, at bedside. Pt able to lift arms, do ROM, and moves all extrems when asked. During other assessment patient hold arms in and is "stiff" does not follow directions. Pt remains on 2-3 L via HFNC, SPO2 > 92%. Levophed on SB, MAP > 64 T/O shift. Patient given Ativan 2 mg for increased anxiety expressed by daughter, Taryn. After Ativan patient sleeping and MAP 64. At this point Precedex placed on SB. Patient able to have conversation with daughters and I, see previous note. Patient has been sleeping since daughters left. Tube feed at goal via Dobhoff. Rectal tube in place with green liquid stool, 50 ml . Temp rodriguez in place, draining to gravity (1000 output), yellow clear. NSR. VSS. Will report to oncoming shift.
--- NOTE | 2020-09-10 19:28 | NUR ---
ASSUMED CARE RECEIVED REPORT FROM YOEL STARKS. UPON ENTERING ROOM PT LYING DOWN IN BED WITH RASS OF -1 TO 0, AND A CPOT OF 0. PRECEDEX IS ON STANDBY. WHITE IS PATENT DRAINING LIGHT YELLOW URINE, AND RECTAL TUBE IS PATENT DRAINING GREEN LIQUID STOOL. SWB RESTRAINTS SECURED TO PT AND BED. HE IS IN SINUS TACH, RATE 110-120; BP STABLE, MAP > 65. BED LOW AND LOCKED.
--- NOTE | 2020-09-10 22:47 | NUR ---
UPDATE PT REMAINS IN SINUS TACH, HR 115-125. PT IS CALM, RASS OF -1, WAKING UP INTERMITTENTLY AND MUMBLING TO SELF, BUT MAKING NO ATTEMPT TO GET OUT OF BED OR PULL ON RESTRAINTS. CPOT OF 0. TEMP 99.5, TYLENOL PT GIVEN IN HOPE TO REDUCE TEMP AND HR. REINA, DAUGHTER, HAD MENTIONED THAT SHE BELIEVED THAT HE "RAN ON THE COOLER SIDE". WILL REEVALUATE LATER, AND CONTINUE TO MONITOR.
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
[2020-09-11 03:43] LABS: Hematocrit 27.6 % (37.0-53.0)
[2020-09-11 03:59] LABS: Albumin, Blood 2.2 g/dL (3.4-5.0); Anion Gap 3 mmol/L (6-16); Blood Urea Nitrogen 24 mg/dL (8-24); Bun/Creatinine Ratio 25.4 (12.0-20.0); CO2, Blood 32 mmol/L (21-32); Calcium, Blood 9.4 mg/dL (8.5-10.1); Chloride, Blood 104 mmol/L (98-108); Creatinine, Blood 0.95 mg/dL (0.60-1.20); Glomerular Filtration Rate >60 (60-); Glucose, Blood 189 mg/dL (70-99); Phosphorus, Blood 3.5 mg/dL (2.5-4.9); Potassium, Blood 3.3 mmol/L (3.5-5.5); Sodium, Blood 139 mmol/L (136-145)
--- NOTE | 2020-09-11 07:32 | NUR ---
UPDATE-END OF SHIFT NO ACUTE CHANGES OVERNIGHT. PT HAS SLEPT FOR MAJORITY OF THE NIGHT ON PRECEDEX 0.5-1.0 MCG/KG/HR; CURRENTLY AT 0.7 MCG/KG/HR. SPO2 HAS BEEN MAINTAINED > 94%, ON 2L NC WITH HUMIDITY. HE HAS BEEN IN SINUS TACH 100-125 FOR THE MAJORITY OF THE SHIFT, BUT SINCE AROUND 0600 HR HAS TRENDED DOWN TO 70-80s. LEVOPHED WAS TURNED ON OVERNIGHT TO SUPPORT BP, AND MAINTAIN MAP > 65, CURRENTLY INFUSING AT 3 MCG/MIN. RECTAL TUBE OUTPUT REMAINS LIQUID, BUT IS STARTING TO TURN COLOR FROM GREEN TO BROWN, RECTAL TUBE BAG HAS BEEN CHANGED. BED LOW AND LOCKED, AND RESTRAINTS SECURED TO BED AND PT. PT REMAINS CONFUSED, AND WHAT APPEARS TO BE DELERIUS, ORIENTED ONLY TO SELF; PT DID SHOW SIGNS OF RESTLESSNESS (PRIOR TO FALLING ASLEEP), BUT PT WAS NOT AGITATED, AND HE DIDN'T FIGHT CARE, THUS BEING MORE RELAXED WITH REPOSITIONING (BOTH OF WHICH ARE IMPROVMENTS FROM THIS LAST WEEKEND).
--- NOTE | 2020-09-11 10:15 | NUR ---
Pal Care Visit. EMR reviewed and case conferenced with pt's RN and student RN caring for pt. Updated them on my conversations with pt's daughters yesterday and they gave me clinical update. Pt is sound asleep and I did not disturb him. He had some increased delerium and agitation during the night and dosing for presidex adjusted to address s/s. Will look for alana anticipated for visiting hours later today for supportive visit.
--- NOTE | 2020-09-11 11:17 | NUR ---
0800 ASSESSMENT NOTED WITH PT ON PRECEDEX GTT AND SLEEPING AND SLOW TO RESPOND TO DR EUGENE. PT IS RESTRAINED AND WILL ATTEMPT TO TITRATE PRECEDEX GTT DOWN . AT 1000 PRECEDEX GTT OFF AND AT CURRENTLY PT IS SLOWLY MOVING ABOUT IN BED IS NOT YET FOLLOWING COMMANDS. PT REMAINS ON LEVOPHED GTT AT 3 MCG EARLIER AND NOW ON 4 MCG BUT BACK TO 3MCG AT THIS TIME.
--- NOTE | 2020-09-11 12:05 | NUR ---
PT IS INC ALERT AND COMMUNICATING WITH STAFF BUT MOSTLY MUMBLING. BUT SOME SL INC APPROP COMMUNICATION. PRECEDEX GTT HAS BEEN OFF FOR LAST 2 HOUR, AND LEVOPHED GTT IS DOWN TO 2 MCG.
--- NOTE | 2020-09-11 16:26 | NUR ---
PT HAS BECOME INCREASINGLY AGITATED WITH RESTLESSNESS, VISUAL AND AUDITORY HALLUCINATIONS WITH MUMBLING. PT IS NOT COMBATIVE AND IS SOMEWHAT DIRECTABLE. PRECEXCEX GTT IS BEING RESTARTED AND TITRATED UP TO FURTHER MANNAGE HR, AND AGITATION.
--- NOTE | 2020-09-11 18:41 | NUR ---
PT HR AND ANXIETY LEVEL HAS SLOWED SL AND PT IS CALM. PT DID VISIT SOMEWHAT WITH JULIO AND THEY DID SPEAK BUT PT STILL GOING OFF ON TANGENTS. PRECEDEX GTT IS BACK ON AND HAS BEEN TITRATED UP TO 0.7 MCG. BP REMAINS STABLE W/O PRESSOR, LEVOPEHD OFF SENCE 1400-KARISSA THIS PM. I/O NOTED AND PT CONT TO NEED RECTAL TUBE. PERIANAL AREA IS RED BUT NO SKIN BREAK DOWN AND NYSTATIN APPLED FOR POSSIBLE FUNGAL ISSUES.
--- NOTE | 2020-09-11 19:34 | NUR ---
report received @ bedside. pt on 1 of precedex. slightly aggitated. hua, delirious, talking about knowing me, and selling his truck to me, ect. reposition pt up in bed, pt kicking legs out, trying to get up. vitals with st hr 117, bp's stable, no sat probe on pt, on 2 l n/c. will replace probe. continue assessment and care. rt in room for breathing rx at this time.
--- NOTE | 2020-09-12 | NUR ---
ASSESS PT CONTINUES ON PRECEDEX GTT @ 1.5. CONTINUES TO HAVE DELIRIUM AND HALLUCINATIONS. TALKING TO PEOPLE IN ROOM, CONFUSED ABOUT WHERE HE IS. VILLA. VERY FIDGETY, AND CONTINUES TO ATTEMP TO GET UP AND REMOVE TUBES, THUS REMAINS IN RESTRAINTS FOR SAFETY. Q2 TURNING, Q4 ORAL CARE, WITH MOISTURE APPLIED TO ORAL Q2 DUE TO DRYNESS. CONTINUE ASSESSMENTS AND CARE.
[2020-09-12 04:23] LABS: Hematocrit 22.9 % (37.0-53.0); Hemoglobin 7.5 g/dL (13.5-17.5)
--- NOTE | 2020-09-12 04:37 | NUR ---
REASSESSED PT RESTING, POST BED CHANGE. ON PRECEDEX 1.4. VITALS STABLE, SEE FLOWSHEET. TF INCREASED TO 60ML/HR. CONTINUE CARE.
[2020-09-12 04:42] LABS: Magnesium, Blood 1.8 mg/dL (1.6-2.4)
[2020-09-12 04:43] LABS: Albumin, Blood 1.9 g/dL (3.4-5.0); Anion Gap 5 mmol/L (6-16); Blood Urea Nitrogen 21 mg/dL (8-24); Bun/Creatinine Ratio 25.5 (12.0-20.0); CO2, Blood 29 mmol/L (21-32); Calcium, Blood 8.8 mg/dL (8.5-10.1); Chloride, Blood 108 mmol/L (98-108); Creatinine, Blood 0.83 mg/dL (0.60-1.20); Glomerular Filtration Rate >60 (60-); Glucose, Blood 168 mg/dL (70-99); Phosphorus, Blood 4.2 mg/dL (2.5-4.9); Potassium, Blood 3.6 mmol/L (3.5-5.5); Sodium, Blood 142 mmol/L (136-145)
--- NOTE | 2020-09-12 10:43 | NUR ---
PT IS CURRENTLY RESTING AND IS SEDATE, BUT INITALLY IN SHIFT, PT VERY RESTLESS AND TRYING TO GET OUT OF BED EVEN WITH PRECEDEX GTT AT 0.7MCG. PT PRN ATIVAN GIVEN AND MT WAS ABLE TO CALM DOWN AND WILL FOLLOW FOR FURTHER DEC. OF PRECEDEX GTT. PT REMAINS CONFUSED TO TIME, PLACE, AND WHERE HE LIVES BUT IS ABLE TO GIVE NAME AND AND DAUGHTERS NAME.
--- NOTE | 2020-09-12 16:45 | NUR ---
JULIANA IN TO VISIT HER FATHER. PT SEEMS TO BE RESPONDING WELL AT THIS TIME. FMLA PAPERS FOR REINA ARE IN FRONT OF THE CHART TO FILL OUT LATER. PT REMAINS ON PRECEDEX GTT AT 0.5 MCG AND WILL CONSIDER ATIVAN IF PT CONT TO ESCLATE OR IS MORE AGITATED. HR IS 100-110 AND BP ELEVATED NOTE. WILL FOLLOW.
--- NOTE | 2020-09-12 17:44 | NUR ---
ATIVAN WAS RECENTLY GIVEN AND PT IS CALM BUT CONT TO REQUIRE PRECEDEX GTT. PRECEDEX GTT AT 0.7 FOR NOW AND WILL MONITOR. RR IS SL ELEVATED BUT WI SATS CONT AT 96+ ON 2L. I/O NOTED. PT CONT IN ST CURRENTY. WILL FOLLOW AND REPORT PT STATUS.
--- NOTE | 2020-09-12 19:34 | NUR ---
ASSUMED CARE OF PT AT 1915. REPORT RECEIVED AT BEDSIDE. PT PRESENTS IN BED SLEEPING. DRIPS VERIFIED WITH OFFGOING RN. PT IN NO APPARENT DISTRESS AT THIS TIME. WILL REVIEW CHART AND PLAN OF CARE FOR THIS PT.
--- NOTE | 2020-09-12 23:03 | NUR ---
PT HAS CONTINUED ON PRECEDEX AT 0.7 NCG/KG/HOUR. PT REMAINS CONFUSED. [facility] TWO PERSON ASSIST FOR BED CHANGE AND CLEANING. PT RESISTS SOME WITH CARE. STIFF WITH TURNS. SOFT WRIST RESTRAINTS IN PLACE FOR PT SAFETY. DOES KICK HIS LEGS ABOUT IN BED AT TIMES. WILL CONTINUE TO MONITOR.
[2020-09-13 03:39] LABS: Hematocrit 26.4 % (37.0-53.0); Hemoglobin 8.5 g/dL (13.5-17.5)
[2020-09-13 05:09] LABS: Albumin, Blood 2.2 g/dL (3.4-5.0); Anion Gap 4 mmol/L (6-16); Blood Urea Nitrogen 20 mg/dL (8-24); Bun/Creatinine Ratio 23.9 (12.0-20.0); CO2, Blood 30 mmol/L (21-32); Calcium, Blood 9.9 mg/dL (8.5-10.1); Chloride, Blood 105 mmol/L (98-108); Creatinine, Blood 0.84 mg/dL (0.60-1.20); Glomerular Filtration Rate >60 (60-); Glucose, Blood 159 mg/dL (70-99); Magnesium, Blood 1.7 mg/dL (1.6-2.4); Phosphorus, Blood 4.6 mg/dL (2.5-4.9); Potassium, Blood 4.6 mmol/L (3.5-5.5); Sodium, Blood 139 mmol/L (136-145)
--- NOTE | 2020-09-13 07:00 | NUR ---
PT HAS BEEN ABLE TO REST SOME THIS NIGHT. AT TIMES IS NOTED TO TRY TO GET HIMSELF OUT OF BED. SOFT WRIST RESTRIANTS IN PLACE SECONDARY TO PATIENT'S FREQUENT ATTEMPTS TO GET AHOLD OF HIS TUBES AND LINES. PT DOES NOT REDIRECT WELL. REMAINS CONFUSED. PRECEDEX AT 0.7 MCG'S/KG/HOUR. WILL CONTINUE TO MONITOR PT, AND WILL REPORT OFF TO ONCOMING RN.
--- NOTE | 2020-09-13 10:04 | NUR ---
Care Assumed 0700 Pt on Precedex 0.7 mcg/kg/hr, infusing via PICC to KELLY. Unable to follow directions at this time, garbled speak occasionally and during care pt states "don't do that." Speech therapy at bedside and pt able to nod yes when asked if daughters name is Taryn/Justine and nods no to daughters name being Petty. Eyes opens spontaneously. Pt resistant towards oral care, clinching teeth. On 2 L via HFNC, SPO2 > 90%. BP Stable, HR 100-120's. Glucerna 1.2 at goal of 70 ml/hr via Dobhoff. Rectal tube and rodriguez in place. Temp of 99.5. SWB.
--- NOTE | 2020-09-13 18:41 | NUR ---
Shift Summary Pt unable to follow directions, garbled words, and occasionally says a phrase. Able to track when in room. Precedex GTT 0.5 mcg/kg/hr. Pt had visit from family friend (Leslie), spoke to daughter Justine and permission provided to let family friend in. Pt sitting in chair majority of the day. BP stable. HR sinus tach (90-120's). Remains on 2 L via HFNC, SPO2 > 90%. Pts tube feed placed on standby per dietitian at 1200 and cyclic tube feed started at 1830. Patient moved from chair to bed via lift with assistance from Eloise RN at 1745, pt had coughing spell. Oral care provided and patient coughing white/saxena secretion's. Oral care completed and patient 90 degrees. [address] remains in place. SWB. Will report to oncoming shift.
--- NOTE | 2020-09-13 19:27 | NUR ---
ASSUMED CARE OF PT AT 1915. REPORT RECEIVED AT BEDSIDE. PT PRESENTS IN BED. OPENS EYES TO GREETING. HAS RECEIVED PHONE CALL FROM OUTSIDE [employer]. HELD PHONE TO PT'S EAR. HE ATTEMPTS TO PARTICIPATE IN CONVERSATION. PT IN NO APPARENT DISTRESS. WILL REVIEW CHART AND PLAN OF CARE FOR THIS PT. OF NOTE: PT HAS EXPECTORATED THICK YELLOW COLORED SPUTUM. DOES NOT OPEN MOUTH TO BE ABLE TO SUCTION ORAL CAVITY.
--- NOTE | 2020-09-14 01:00 | NUR ---
HAVE CONTINUED WITH Q 2 HOUR TURNS IN BED. PT IS NOT ABLE TO ASSIST WITH THESE TURNS. ON OCCASSION, PT NOTED TO HAVE SOME LEAKAGE FROM [facility]OUND [facility]. PT DOES RESIST SOME WITH CARE. NEEDS TO BE INSTRUCTED. WILL CONTINUE TO MONITOR.
[2020-09-14 04:49] LABS: Hematocrit 27.9 % (37.0-53.0); Hemoglobin 9.1 g/dL (13.5-17.5)
[2020-09-14 05:07] LABS: Albumin, Blood 2.5 g/dL (3.4-5.0); Anion Gap 4 mmol/L (6-16); Blood Urea Nitrogen 18 mg/dL (8-24); Bun/Creatinine Ratio 22.2 (12.0-20.0); CO2, Blood 31 mmol/L (21-32); Calcium, Blood 9.7 mg/dL (8.5-10.1); Chloride, Blood 102 mmol/L (98-108); Creatinine, Blood 0.81 mg/dL (0.60-1.20); Glomerular Filtration Rate >60 (60-); Glucose, Blood 165 mg/dL (70-99); Magnesium, Blood 1.9 mg/dL (1.6-2.4); Phosphorus, Blood 5.6 mg/dL (2.5-4.9); Potassium, Blood 4.5 mmol/L (3.5-5.5); Sodium, Blood 137 mmol/L (136-145)
--- NOTE | 2020-09-14 06:30 | NUR ---
PT HAS HAD MOIST COUGH WITH OCCASSIONAL EXPECTORATION OF YELLOW/WHITE SECRETIONS. PT UNABLE TO CLEAR EXPECTORANT VERY WELL. HAVE USED YAUNKEUR TO DO DEEP ORAL SUCTIONING TO CLEAR PT'S AIRWAY. PT DOES NOT TOLERATE THIS WELL AND WITH PT'S CONFUSION LEVEL IS NOT HELPFUL IN THIS PROCESS. PT CONTINUES ON PRECEDEX AT 0.5 MCG'S. WILL CONTINUE TO MONIOR PT, AND WILL REPORT OFF TO ONCOMING RN.
--- NOTE | 2020-09-14 08:00 | NUR ---
ASSUMED CARE PT MINIMALLY SEDATED THOUGH EASILY AROUSABLE AT THIS TIME. PICC TO KELLY INFUSING PRECEDEX 0.5MCG/KG AT THIS TIME. DOBHOFF REMAINS IN PLACE, CYCLIC TF PAUSED AT THIS TIME PER ORDERS. 4L VIA NC SAT >90%. WHITE CATH PATENT AND DRAINING YELLOW URINE TO GRAVITY. RECTAL TUBE PATENT AND DRAINING BROWN LIQUID STOOL. VERY MOIST SOUNDING WHEN TALKING AND WITH RESPIRATIONS, INCREASED RR 30'S-40'S, TACHY LABORED WITH USE OF ACCESSORY MUSCLES. UNABLE TO CLEAR SECRETIONS WITH COUGH. ABLE TO CLEAR SLIGHTLY WITH USE OF NT SUCTION. PT IN SBW. PT DOES NOT FOLLOW COMMANDS, AGITATED WITH NURSING CARE. VS STABLE. WILL CONTINUE TO MONITOR.
--- NOTE | 2020-09-14 09:08 | NUR ---
NT SUCTION/DR EUGENE PT WITH VERY MOIST VOICE AND RESPIRATIONS. PT WITH WEAK COUGH AND UNABLE TO CLEAR SECRETIONS. DISCUSSED WITH RT. NASAL TRUMPET PLACED, PT NT SUCTIONED WITH COPIOUS AMOUNT OF CLEAR/CHANDLER SECRETIONS NOTED. BREATH SOUNDS IMMEDIATELY IMPROVED S/P SUCTION. DR EUGENE AT BEDSIDE, UPDATED TO CURRENT CONDITION. PT CONTINUES TO HAVE COPIOUS SECRETIONS THAT PT IS UNABLE TO CLEAR INDEPENDENTLY. O2 INCREASED TO 8L NC TO MAINTAIN SPO2 >90%. CHEST XR ORDERED. WILL CONTINUE TO MONITOR.
--- NOTE | 2020-09-14 11:43 | NUR ---
CODE STATUS CONTACTED PT DAUGHTER REINA ABOUT CURRENT PT CONDITION. PT CONDITION AND PLAN OF CARE MOVING FORWARD DISCUSSED IN DETAIL. REINA REQUESTED TO MAKE PT DNR STATUS AT THIS TIME. DISCUSSED THIS WITH DR PARIKH AND DR EUGENE. WILL CONTINUE TO MONITOR.
--- NOTE | 2020-09-14 15:14 | NUR ---
RESPIRATORY DECOMPENSATION PT CONTINUES TO HAVE COPIOUS SECRETIONS THAT PT IS UNABLE TO COUGH UP. PT NT SUCTIONED MULTIPLE TIMES. RR MAINTAINING IN THE 50'S. PT IS LESS RESPONSIVE AT THIS TIME. NC INCREASED TO 15L. DR PARIKH NOTIFIED. PT PLACED ON BIPAP AT THIS TIME BY RT AFTER ANOTHER ROUND OF NT SUCTIONING. BIPAP SETTINGS 12/7, FIO2 40%. PT DAUGHTER UPDATED TO CURRENT CONDITION AND STATES SHE WILL BE ON HER WAY IN TO SEE PT. PT FRIEND ELÍAS AT BEDSIDE AT THIS TIME. WILL CONTINUE TO MONITOR.
--- NOTE | 2020-09-14 16:58 | NUR ---
Pt transitioned to comfort care. Family at bedside appreciating nursing care not wanting chaplian or palliative at this time. Will monitor symptoms.
--- NOTE | 2020-09-14 17:24 | NUR ---
COMFORT CARE PT DAUGHTERS AND FRIEND AT BEDSIDE. DECISION MADE FOR COMFORT CARE. DR PARIKH NOTIFED. COMFORT CARE ORDERS IN. PT MED WITH 10 MG MORPHINE IV AT THIS TIME. BIPAP REMOVED. PT PLACED ON 2L O2 NC FOR COMFORT. DOBHOFF REMOVED. WHITE AND PICC REMAIN IN PLACE. PT CONTINUES WITH MOIST RESPIRATIONS. PT DECLINES DEEP SUCTIONING. WILL CONTINUE TO MONITOR.
--- NOTE | 2020-09-14 18:26 | NUR ---
DOCUMENTATION REVIEW ALL ASSESSMENTS AND NOTES REVIEWED THIS SHIFT. I AGREE WITH [employer] DOCUMENTATION FROM THIS SHIFT.
--- NOTE | 2020-09-15 05:25 | NUR ---
SHIFT SUMMARY NO ACUTE CHANGES. PT ON CC. MEDICATING WITH MORPHINE/ATIVAN TO COMFORT. PT DOES PRESENT AIR HUNGRY AT TIMES, IV MORPHINE SUCCESFUL AT LESSENING THIS. FAMILY IN ROOM UNITL ABOUT 2200. QUESTIONS AND NEEDS ADDRESSED APPROPRIATELY. END OF LIFE EDUCATION PROVIDED WELL HOSPITAL PROTOCOL/POLICY REGARDING CC AND APPROPRIATE MED ADMNISTRAIN. WITH MED ADMINISTRATION, PT PRESENTS COMFORTABLE TO THIS RN. WHITE PATENT AND DRAINING. RECTAL TUBE PATENT, REPOSITIONED IN RECTUM DIGITALLY. PT TURNED FOR COMFORT AND DRAINIAGE OF WHITE/RECTAL TUBE. OTHERWISE, WCTM.
--- NOTE | 2020-09-15 07:40 | NUR ---
ASSUMED CARE PT ON CC. RESTING COMFORTABLY, DOES NOT APPEAR TO BE IN ANY DISTRESS. ON 2L VIA NC FOR EASE OF WORK OF BREATHING. MINIMAL ORAL SECRETIONS NOTED. WILL CONTINUE TO MEDICATE PER MAR FOR COMFORT. REPOSITIONED AND PROVIDED ORAL CARE AT THIS TIME. WHITE CATH PATENT AND DRAINING CLEAR YELLOW URINE. RECTAL TUBE PATENT AND DRAINING LIQUID BROWN STOOL. WILL CONTINUE TO MONITOR.
--- NOTE | 2020-09-15 13:36 | NUR ---
PT SHOWS ASYSTOLE ON THE MONITOR. CANNOT AUSCULATE HEART SOUNDS, NO PULSE, NO BREATHING.
--- NOTE | 2020-09-15 14:03 | NUR ---
FINAL DISCHARGE PT FOUND TO BE IN ASYSTOLE, NOT BREATHING BY [place]. TIME OF 1336. DR EUGENE NOTIFIED. ATTEMPTED TO CONTACT NEXT OF KIN, REINA, LEFT MESSAGE.
--- NOTE | 2020-09-15 18:24 | NUR ---
FAMILY/ HOME PT DAUGHTER REINA CONTACTED. PT TO BE TAKEN TO [facility]. NO PT BELONGINGS NOTED IN ROOM TO BE TAKEN WITH PT.
== END 2020-09-15 13:36 | DRG 870 ==
LOC: ER 12:37 → ICUW 15:45
PROVIDERS: Emergency Medicine; Family Medicine; Internal Medicine; Internal Medicine Critical Care Medicine; Internal Medicine Nephrology; Nurse Practitioner Acute Care; Pharmacist; ADMIT Internal Medicine
PROC: 5A1955Z Respiratory Ventilation, Greater than 96 Consecutive Hours (ICD-10-PCS; principal; 2020-08-22)
PROC: 0BH17EZ Insertion of Endotracheal Airway into Trachea, Via Natural or Artificial Opening (ICD-10-PCS; 2020-08-22)
PROC: 5A09357 Assistance with Respiratory Ventilation, Less than 24 Consecutive Hours, Continuous Positive Airway Pressure (ICD-10-PCS; 2020-08-22)
PROC: 02HV33Z Insertion of Infusion Device into Superior Vena Cava, Percutaneous Approach (ICD-10-PCS; 2020-08-23)
PROC: 3E043XZ Introduction of Vasopressor into Central Vein, Percutaneous Approach (ICD-10-PCS; 2020-08-23)
PROC: 0W9B3ZZ Drainage of Left Pleural Cavity, Percutaneous Approach (ICD-10-PCS; 2020-08-30)
PROC: 0W9B30Z Drainage of Left Pleural Cavity with Drainage Device, Percutaneous Approach (ICD-10-PCS; 2020-08-31)
DX: A41.9 Sepsis, unspecified organism (principal); J95.811 Postprocedural pneumothorax; J96.01 Acute respiratory failure with hypoxia; J96.02 Acute respiratory failure with hypercapnia; R65.21 Severe sepsis with septic shock; I21.A1 Myocardial infarction type 2; Z51.5 Encounter for palliative care; Z66 Do not resuscitate; G92 Toxic encephalopathy; J18.9 Pneumonia, unspecified organism; I47.1 Supraventricular tachycardia; E87.2 Acidosis; E87.0 Hyperosmolality and hypernatremia; N17.9 Acute kidney failure, unspecified; F10.239 Alcohol dependence with withdrawal, unspecified; J90 Pleural effusion, not elsewhere classified; F10.27 Alcohol dependence with alcohol-induced persisting dementia; Z20.822 Contact with and (suspected) exposure to COVID-19; E87.6 Hypokalemia; Z78.1 Physical restraint status; E83.42 Hypomagnesemia; Z22.322 Carrier or suspected carrier of Methicillin resistant Staphylococcus aureus; I48.0 Paroxysmal atrial fibrillation; N18.2 Chronic kidney disease, stage 2 (mild); E83.39 Other disorders of phosphorus metabolism; D86.0 Sarcoidosis of lung; D63.1 Anemia in chronic kidney disease; J43.9 Emphysema, unspecified; F41.9 Anxiety disorder, unspecified; B37.2 Candidiasis of skin and nail; E88.09 Other disorders of plasma-protein metabolism, not elsewhere classified; R19.7 Diarrhea, unspecified; F12.90 Cannabis use, unspecified, uncomplicated; R80.9 Proteinuria, unspecified; K21.9 Gastro-esophageal reflux disease without esophagitis; F17.210 Nicotine dependence, cigarettes, uncomplicated; Z88.5 Allergy status to narcotic agent; Z86.73 Personal history of transient ischemic attack (TIA), and cerebral infarction without residual deficits; Z88.8 Allergy status to other drugs, medicaments and biological substances; Z91.030 Bee allergy status; Z79.899 Other long term (current) drug therapy; Z98.890 Other specified postprocedural states
CPT/HCPCS: 0097U; 31500; 32551; 36415; 36569; 36600; 51702; 70450; 71045; 71260; 72125; 76604; 80048; 80053; 80069; 80202; 81001; 82042; 82088; 82248; 82330; 82435; 82533; 82803; 82945; 82947; 83605; 83615; 83735; 83880; 84100; 84132; 84133; 84145; 84157; 84244; 84295; 84478; 84484; 85014; 85018; 85025; 85027; 85610; 85651; 85730; 86140; 87015; 87040; 87070; 87075; 87077; 87086; 87102; 87116; 87147; 87177; 87186; 87205; 87206; 87209; 87493; 89051; 92523; 93005; 93010; 93306; 94002; 94003; 94640; 94660; 94667; 94761; 96365; 96366; 96367; 96368; 96375; 96376; 97110; 97162; 97166; 97530; 99285-25; A9270; C1751; G0480; J0282; J0330; J0456; J0692; J0696; J1650; J1885; J1940; J2020; J2060; J2250; J2270; J2704; J2930; J3010; J3370; J3411; J3475; J3480; J7030; J7050; J7060; J7070; J7120; P9046; Q9967